=== PATIENT | female | born 1960 | race Caucasian/White ===

== ENCOUNTER 2016-03-26 10:31 | Emergency (ER) | payer MEDICARE, MEDICAID ==
[~2016-03-26 10:31] MED LIST: /CELE20CA PO; /DULO30CA OR; /DULO30CA PO; ACET65TA OR; CALC600T7 PO; COUM1TAB19 PO; DICL0.1S7 TOP; DULC5TAB PO; FURO20TA2 OR; KLOR10TA OR; LIDO1DIS2 TD; NEUR100C PO; OMEP20CA3 PO; OMEP20TA7 PO; OXYB5TAB5 OR; OXYC1SOL PO; SM I100T PO; TOPI25TA2 PO; TRAM50TA2 OR; TYLE325T5 PO; VICKOIN EX; ZANA2CAP OR; ZEST5TAB PO; ZIPR80CAP PO; [UNRECOGNIZED DRUG - OTHER] PO; compound cream EXT
--- NOTE | 2016-03-26 12:14 | EDDOCDS ---
Physician Documentation [facility] Name: Alaina Bucio Age: 55 yrs Sex: Female : 1960 Arrival Date: 03/26/2016 Time: 10:31 Bed TR8 Private MD: Janet Li Disposition: 03/26/16 12:00 Discharged to Home/Self Care. Impression: Encounter for observation for suspected toxic effect from ingested substance ruled out. - Condition is Stable. - Discharge Instructions: Overdose, Accidental. - Medication Reconciliation, Local Pharmacy Hours form. - Follow up: Janet Li; When: Call to arrange an appointment; Reason: Further diagnostic work-up, Recheck today's complaints, Continuance of care. - Problem is new. - Symptoms are unchanged. Historical: - Allergies: no known allergies; No known drug Allergies; - Home Meds: 1. Cymbalta 30 mg Oral cpDR 1 cap 2 times per day 2. oxybutynin chloride 10 mg Oral tr24 1 tab once daily 3. Lasix 40 mg Oral tab 1 tab once daily 4. omeprazole 20 mg Oral cpDR 1 cap 2 times per day 5. Calcium + Vitamin D 600 mg calcium- 200 unit Oral tab daily 6. Topamax 100 mg Oral tab 1 tab 2 times per day 7. Saline Nasal 0.65 % nasal spra nightly 8. Anusol 1-46.6-12.5 % Rectal oint as needed 9. Zofran (as hydrochloride) 4 mg Oral tab as needed 10. Milk of Magnesia 400 mg/5 mL Oral susp 30 mL once daily as needed 11. diclofenac sodium 1 % topical gel as needed 12. Senna-S 8.6-50 mg oral tab 2 tabs as needed 13. melatonin 3 mg Oral tab nightly - PMHx: Sleep Apnea w/o CPAP; - PSHx: knee replacement; Right Hip Replacement; - Social history: Smoking status: Patient states was never smoker of tobacco. No barriers to communication noted, The patient speaks fluent Micronesian, Speaks appropriately for age. - Family history: Not pertinent. - : The pt / caregiver states he / she is not on anticoagulants. Home medication list is obtained from the facility APR. - Exposure Risk Screening:: None identified. Vital Signs: 03/26 10:32 BP 145 / 69; Pulse 93; Resp 18; Temp 97.4; Pulse Ox 100% ; Weight 123.38 kg / 272.01 elp lbs; Height 5 ft. 0 in. (152.40 cm); 12:03 BP 140 / 67; Pulse 85; Resp 18; Temp 97.1; Pulse Ox 97% ; Pain 0/10; cmb 10:32 Body Mass Index 53.12 (123.38 kg, 152.40 cm) elp MDM: 11:52 Financial registration complete. lg Signatures: Carmina Mcpherson, Reg Reg lg Mariano Jacobs, RN RN mlb1 Patricio Molina PA PA rosauraw Radha Ayon, RN RN ttb MTDD
--- NOTE | 2016-03-26 12:14 | EDDOCDS ---
Nurse's Notes [facility] Name: Alaina Bucio Age: 55 yrs Sex: Female : 1960 Arrival Date: 03/26/2016 Time: 10:31 Bed TR8 Private MD: Janet Li Diagnosis: Encounter for observation for suspected toxic effect from ingested substance ruled out Presentation: 03/26 10:34 Presenting complaint: Pt given another clients medications at [facility] this am which include mlb1 Dilantin 200 mg, Carbamazepine 200 mg, Aspirin 81 mg, Paroxetine 10 mg, and Risperidone 3mg. Adult Sepsis Screening: The patient does not have new or worsening altered mentation. Patient's respiratory rate is less than 22. Systolic blood pressure is greater than 100. Patient has a qSOFA score of 0- Negative Sepsis Screen. Suicide/Homicide risk assessment- the patient denies having any suicidal and/or homicidal ideations and does not present with any other emotional, behavioral or mental health complaints. Status: Patient is not a director of community services or dependent. Transition of care: patient was received from [facility]. 10:34 Acuity: MARY JO Level 4 mlb1 10:34 Method Of Arrival: Wheelchair mlb1 Triage Assessment: 10:43 General: Appears in no apparent distress, Behavior is appropriate for age, cooperative. mlb1 Pain: Unable to use pain scale. Does not appear to understand pain scale. HIV screening NA for this visit Offered previously. Historical: - Allergies: no known allergies; No known drug Allergies; - Home Meds: 1. Cymbalta 30 mg Oral cpDR 1 cap 2 times per day 2. oxybutynin chloride 10 mg Oral tr24 1 tab once daily 3. Lasix 40 mg Oral tab 1 tab once daily 4. omeprazole 20 mg Oral cpDR 1 cap 2 times per day 5. Calcium + Vitamin D 600 mg calcium- 200 unit Oral tab daily 6. Topamax 100 mg Oral tab 1 tab 2 times per day 7. Saline Nasal 0.65 % nasal spra nightly 8. Anusol 1-46.6-12.5 % Rectal oint as needed 9. Zofran (as hydrochloride) 4 mg Oral tab as needed 10. Milk of Magnesia 400 mg/5 mL Oral susp 30 mL once daily as needed 11. diclofenac sodium 1 % topical gel as needed 12. Senna-S 8.6-50 mg oral tab 2 tabs as needed 13. melatonin 3 mg Oral tab nightly - PMHx: Sleep Apnea w/o CPAP; - PSHx: knee replacement; Right Hip Replacement; - Social history: Smoking status: Patient states was never smoker of tobacco. No barriers to communication noted, The patient speaks fluent Moroccan, Speaks appropriately for age. - Family history: Not pertinent. - : The pt / caregiver states he / she is not on anticoagulants. Home medication list is obtained from the facility MAR. - Exposure Risk Screening:: None identified. Screenin:10 Screening information is obtained from the patient. Fall risk: At risk due to gait ttb disturbance, The following interventions are performed due to a positive Fall Risk Screen: Fall Risk is added to Special Handling on the patient Summary Screen. A Fall Risk Bracelet was applied to the patient. Side Rails are placed in the up position. A Call Varela is given with instruction to call for help when getting out of bed. Assistance ADL's: Requires assistance with meal preparation, this assistance is provided by bathing, assistance is provided by dressing, assistance is provided by toileting, assistance is provided by ambulation, assistance is provided by housework, assistance is provided by medication administration, assistance is provided by family members, residence staff. Abuse/DV Screen: The patient / caregiver reports he/she is: not in a situation that causes fear, pain or injury. Nutritional screening: No deficits noted. Advance Directives: Currently, there is no health care proxy. home support is adequate. Assessment: 12:10 General: Appears in no apparent distress, well nourished, well groomed, Behavior is ttb cooperative, pleasant. Neurological: Level of Consciousness is awake, alert, Speech at baseline. Cardiovascular: Chest pain is denied. Respiratory: Airway is patent Respiratory effort is even, unlabored, Denies cough, shortness of breath. GI: Denies nausea, vomiting. Derm: Skin is normal. Vital Signs: 10:32 BP 145 / 69; Pulse 93; Resp 18; Temp 97.4; Pulse Ox 100% ; Weight 123.38 kg; Height 5 elp ft. 0 in. (152.40 cm); 12:03 BP 140 / 67; Pulse 85; Resp 18; Temp 97.1; Pulse Ox 97% ; Pain 0/10; cmb 10:32 Body Mass Index 53.12 (123.38 kg, 152.40 cm) elp Vitals: 10:32 Log In Time: March 26, 2016 at 10:30. RN notified that patient meets Red Flag elp criteria. ED Course: 10:32 Patient visited by Evon Marcelo PCA. elp 10:32 Janet Li is Private Physician. elp 10:32 Patient moved to Waiting elp 10:33 Patient moved to Pre RCE elp 10:34 Patient visited by Mariano Jacobs RN. mlb1 10:36 Triage Initiated mlb1 10:43 Patient visited by Mariano Jacobs RN. mlb1 11:16 Patient moved to Triage 2 mcp 11:45 [facility] Molina [facility] btw 11:45 Sara Gonzales MD is Attending Physician. btw 11:45 Patient visited by Patricio Molina PA. btw 11:57 Janet Li is Referral Physician. btw 12:10 The patient / caregiver is instructed regarding the plan of care and ED course. ttb Accompanied by Caregiver, Family Member, Patient has correct armband on for positive identification. 12:10 No IV's were initiated during this patient's visit. No procedures done that require ttb assistance. 12:11 Patient moved to TR8 cmb Order Results: There are currently no results for this order. Outcome: 12:00 Discharge ordered by Provider. btw 12:10 Discharge Assessment: Patient awake, alert and oriented x 3. No cognitive and/or ttb functional deficits noted. Patient verbalized understanding of disposition instructions. Patient awake and alert. patient administered narcotics - no. The following High Risk Discharge criteria are identified: None. Discharged to home via wheelchair, with family, caregiver. Condition: good Condition: stable. Discharge instructions given to parents licensed staff mft, Instructed on discharge instructions, follow up and referral plans. medication usage, Demonstrated understanding of instructions, medications, Pt was receptive of discharge instructions/ teaching. No special radiology studies were completed. Property :Personal belongings accompany Pt. 12:12 Patient left the ED. ttb Signatures: Josi Schmitt RN RN [facility] Mariano Jacobs RN RN [facility] Patricio Molina PA PA btw Danielle Blackwell cmb Gabo, Radha, RN RN ttb Patchen, Evon, NATURAL RESOURCE OFFICER NATURAL RESOURCE OFFICER elp MTDD
[2016-03-28] MEDS ORDERED: AMMO12CR4 EX (09:35)
[2016-03-28] MEDS ORDERED: CALC600T57 PO (09:35)
[2016-03-28] MEDS ORDERED: TOPA100T8 PO (09:35)
[2016-03-28] MEDS ORDERED: CYMB1CAP5 PO (09:35)
[2016-03-28] MEDS ORDERED: LASI40TA PO (09:35)
[2016-03-28] MEDS ORDERED: MELA0.02 PO (09:35)
[2016-03-28] MEDS ORDERED: SENN8.6T7 PO (09:35)
[2016-03-28] MEDS ORDERED: ZINC40OI EX (09:35)
[2016-03-28] MEDS ORDERED: [UNRECOGNIZED DRUG - OTHER] TOP (09:35)
[2016-03-28] MEDS ORDERED: PRIL20CA9 PO ×2 (09:35)
[2016-03-28] MEDS ORDERED: OXYB5TA PO (09:35)
[2016-03-28] MEDS ORDERED: CYMB60CA3 PO (09:35)
[2016-03-28] MEDS ORDERED: SALI0.653 (09:35)
[2016-03-28] MEDS ORDERED: REFR1DRO6 OP (09:35)
--- NOTE | 2016-03-28 13:13 | EDDOCDS ---
Nurse's Notes [facility] Name: Alaina Bucio Age: 55 yrs Sex: Female : 1960 Arrival Date: 03/26/2016 Time: 10:31 Bed TR8 Private MD: Janet Li Diagnosis: Encounter for observation for suspected toxic effect from ingested substance ruled out Presentation: 03/26 10:34 Presenting complaint: Pt given another clients medications at [facility] this am which include mlb1 Dilantin 200 mg, Carbamazepine 200 mg, Aspirin 81 mg, Paroxetine 10 mg, and Risperidone 3mg. Adult Sepsis Screening: The patient does not have new or worsening altered mentation. Patient's respiratory rate is less than 22. Systolic blood pressure is greater than 100. Patient has a qSOFA score of 0- Negative Sepsis Screen. Suicide/Homicide risk assessment- the patient denies having any suicidal and/or homicidal ideations and does not present with any other emotional, behavioral or mental health complaints. 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 Transition of care: patient was received from [facility]. 10:34 Acuity: MARY JO Level 4 mlb1 10:34 Method Of Arrival: Wheelchair mlb1 Triage Assessment: 10:43 General: Appears in no apparent distress, Behavior is appropriate for age, cooperative. mlb1 Pain: Unable to use pain scale. Does not appear to understand pain scale. HIV screening NA for this visit Offered previously. Historical: - Allergies: no known allergies; No known drug Allergies; - Home Meds: 1. Cymbalta 30 mg Oral cpDR 1 cap 2 times per day 2. oxybutynin chloride 10 mg Oral tr24 1 tab once daily 3. Lasix 40 mg Oral tab 1 tab once daily 4. omeprazole 20 mg Oral cpDR 1 cap 2 times per day 5. Calcium + Vitamin D 600 mg calcium- 200 unit Oral tab daily 6. Topamax 100 mg Oral tab 1 tab 2 times per day 7. Saline Nasal 0.65 % nasal spra nightly 8. Anusol 1-46.6-12.5 % Rectal oint as needed 9. Zofran (as hydrochloride) 4 mg Oral tab as needed 10. Milk of Magnesia 400 mg/5 mL Oral susp 30 mL once daily as needed 11. diclofenac sodium 1 % topical gel as needed 12. Senna-S 8.6-50 mg oral tab 2 tabs as needed 13. melatonin 3 mg Oral tab nightly - PMHx: Sleep Apnea w/o CPAP; - PSHx: knee replacement; Right Hip Replacement; - Social history: Smoking status: Patient states was never smoker of tobacco. No barriers to communication noted, The patient speaks fluent Singaporean, Speaks appropriately for age. - Family history: Not pertinent. - : The pt / caregiver states he / she is not on anticoagulants. Home medication list is obtained from the facility MAR. - Exposure Risk Screening:: None identified. Screenin:10 Screening information is obtained from the patient. Fall risk: At risk due to gait ttb disturbance, The following interventions are performed due to a positive Fall Risk Screen: Fall Risk is added to Special Handling on the patient Summary Screen. A Fall Risk Bracelet was applied to the patient. Side Rails are placed in the up position. A Call Varela is given with instruction to call for help when getting out of bed. Assistance ADL's: Requires assistance with meal preparation, this assistance is provided by bathing, assistance is provided by dressing, assistance is provided by toileting, assistance is provided by ambulation, assistance is provided by housework, assistance is provided by medication administration, assistance is provided by family members, residence staff. Abuse/DV Screen: The patient / caregiver reports he/she is: not in a situation that causes fear, pain or injury. Nutritional screening: No deficits noted. Advance Directives: Currently, there is no health care proxy. home support is adequate. Assessment: 12:10 General: Appears in no apparent distress, well nourished, well groomed, Behavior is ttb cooperative, pleasant. Neurological: Level of Consciousness is awake, alert, Speech at baseline. Cardiovascular: Chest pain is denied. Respiratory: Airway is patent Respiratory effort is even, unlabored, Denies cough, shortness of breath. GI: Denies nausea, vomiting. Derm: Skin is normal. Vital Signs: 10:32 BP 145 / 69; Pulse 93; Resp 18; Temp 97.4; Pulse Ox 100% ; Weight 123.38 kg; Height 5 elp ft. 0 in. (152.40 cm); 12:03 BP 140 / 67; Pulse 85; Resp 18; Temp 97.1; Pulse Ox 97% ; Pain 0/10; cmb 10:32 Body Mass Index 53.12 (123.38 kg, 152.40 cm) elp Vitals: 10:32 Log In Time: March 26, 2016 at 10:30. RN notified that patient meets Red Flag elp criteria. ED Course: 10:32 Patient visited by Evon Marcelo PCA. elp 10:32 Janet Li is Private Physician. elp 10:32 Patient moved to Waiting elp 10:33 Patient moved to Pre RCE elp 10:34 Patient visited by Mariano Jacobs RN. mlb1 10:36 Triage Initiated mlb1 10:43 Patient visited by Mariano Jacobs RN. mlb1 11:16 Patient moved to Triage 2 mcp 11:45 Patricio Molina PA [facility]. btw 11:45 Sara Gonzales MD is Attending Physician. btw 11:45 Patient visited by Patricio Molina PA. btw 11:57 Janet Li is Referral Physician. btw 12:10 The patient / caregiver is instructed regarding the plan of care and ED course. ttb Accompanied by Caregiver, Family Member, Patient has correct armband on for positive identification. 12:10 No IV's were initiated during this patient's visit. No procedures done that require ttb assistance. 12:11 Patient moved to TR8 cmb 12:24 [facility] Payment Agreement was scanned into AMEE and attached to record. lg 14:05 T-Sheet-- Draft Copy was scanned into AMEE and attached to record. gb Order Results: There are currently no results for this order. Outcome: 12:00 Discharge ordered by Provider. btw 12:10 Discharge Assessment: Patient awake, alert and oriented x 3. No cognitive and/or ttb functional deficits noted. Patient verbalized understanding of disposition instructions. Patient awake and alert. patient administered narcotics - no. The following High Risk Discharge criteria are identified: None. Discharged to home via wheelchair, with family, caregiver. Condition: good Condition: stable. 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 medication usage, Demonstrated understanding of instructions, medications, Pt was receptive of discharge instructions/ teaching. No special radiology studies were completed. Property :Personal belongings accompany Pt. 12:12 Patient left the ED. ttb Signatures: Josi Schmitt, RN RN Keila Arteaga, Reg Reg gb Carmina Mcpherson, Reg Reg lg Mariano Jacobs RN RN mlb1 Patricio Molina PA PA btw Danielle Blackwell cmRadha Liao, SEBASTIAN RN ttb Evon Marcelo, ABRAN CROSSTIE INSPECTOR elp Chart Complete MTDD
--- NOTE | 2016-03-28 13:13 | EDDOCDS ---
Physician Documentation [facility] Name: Alaina Bucio Age: 55 yrs Sex: Female : 1960 Arrival Date: 03/26/2016 Time: 10:31 Bed TR8 Private MD: Janet Li Disposition: 03/26/16 12:00 Discharged to Home/Self Care. Impression: Encounter for observation for suspected toxic effect from ingested substance ruled out. - Condition is Stable. - Discharge Instructions: Overdose, Accidental. - Medication Reconciliation, Local Pharmacy Hours form. - Follow up: Janet Li; When: Call to arrange an appointment; Reason: Further diagnostic work-up, Recheck today's complaints, Continuance of care. - Problem is new. - Symptoms are unchanged. Historical: - Allergies: no known allergies; No known drug Allergies; - Home Meds: 1. Cymbalta 30 mg Oral cpDR 1 cap 2 times per day 2. oxybutynin chloride 10 mg Oral tr24 1 tab once daily 3. Lasix 40 mg Oral tab 1 tab once daily 4. omeprazole 20 mg Oral cpDR 1 cap 2 times per day 5. Calcium + Vitamin D 600 mg calcium- 200 unit Oral tab daily 6. Topamax 100 mg Oral tab 1 tab 2 times per day 7. Saline Nasal 0.65 % nasal spra nightly 8. Anusol 1-46.6-12.5 % Rectal oint as needed 9. Zofran (as hydrochloride) 4 mg Oral tab as needed 10. Milk of Magnesia 400 mg/5 mL Oral susp 30 mL once daily as needed 11. diclofenac sodium 1 % topical gel as needed 12. Senna-S 8.6-50 mg oral tab 2 tabs as needed 13. melatonin 3 mg Oral tab nightly - PMHx: Sleep Apnea w/o CPAP; - PSHx: knee replacement; Right Hip Replacement; - Social history: Smoking status: Patient states was never smoker of tobacco. No barriers to communication noted, The patient speaks fluent Gibraltarian, Speaks appropriately for age. - Family history: Not pertinent. - : The pt / caregiver states he / she is not on anticoagulants. Home medication list is obtained from the facility APR. - Exposure Risk Screening:: None identified. Vital Signs: 03/26 10:32 BP 145 / 69; Pulse 93; Resp 18; Temp 97.4; Pulse Ox 100% ; Weight 123.38 kg / 272.01 elp lbs; Height 5 ft. 0 in. (152.40 cm); 12:03 BP 140 / 67; Pulse 85; Resp 18; Temp 97.1; Pulse Ox 97% ; Pain 0/10; cmb 10:32 Body Mass Index 53.12 (123.38 kg, 152.40 cm) elp MDM: 11:52 Financial registration complete. lg 12:24 [facility] Payment Agreement was scanned into Vdancer and attached to record. lg 14:05 T-Sheet-- Draft Copy was scanned into Vdancer and attached to record. gb Signatures: Keila Izquierdo, Reg Reg Carmina De Luna, Reg Reg Mariano Juarez, RN RN mlb1 Patricio Molina PA PA btw Conner, Teresa, RN RN ttb The chart was reviewed and I authenticate all verbal orders and agree with the evaluation and treatment provided.Attachments: 12:24 [facility] Payment Agreement lg 14:05 T-Sheet-- Draft Copy gb Chart Complete MTDD
--- NOTE | 2016-03-28 13:13 | EDDOCDS ---
Physician Documentation [facility] Name: Alaina Bucio Age: 55 yrs Sex: Female : 1960 Arrival Date: 03/26/2016 Time: 10:31 Bed TR8 Private MD: Janet Li Disposition: 03/26/16 12:00 Discharged to Home/Self Care. Impression: Encounter for observation for suspected toxic effect from ingested substance ruled out. - Condition is Stable. - Discharge Instructions: Overdose, Accidental. - Medication Reconciliation, Local Pharmacy Hours form. - Follow up: Janet Li; When: Call to arrange an appointment; Reason: Further diagnostic work-up, Recheck today's complaints, Continuance of care. - Problem is new. - Symptoms are unchanged. Historical: - Allergies: no known allergies; No known drug Allergies; - Home Meds: 1. Cymbalta 30 mg Oral cpDR 1 cap 2 times per day 2. oxybutynin chloride 10 mg Oral tr24 1 tab once daily 3. Lasix 40 mg Oral tab 1 tab once daily 4. omeprazole 20 mg Oral cpDR 1 cap 2 times per day 5. Calcium + Vitamin D 600 mg calcium- 200 unit Oral tab daily 6. Topamax 100 mg Oral tab 1 tab 2 times per day 7. Saline Nasal 0.65 % nasal spra nightly 8. Anusol 1-46.6-12.5 % Rectal oint as needed 9. Zofran (as hydrochloride) 4 mg Oral tab as needed 10. Milk of Magnesia 400 mg/5 mL Oral susp 30 mL once daily as needed 11. diclofenac sodium 1 % topical gel as needed 12. Senna-S 8.6-50 mg oral tab 2 tabs as needed 13. melatonin 3 mg Oral tab nightly - PMHx: Sleep Apnea w/o CPAP; - PSHx: knee replacement; Right Hip Replacement; - Social history: Smoking status: Patient states was never smoker of tobacco. No barriers to communication noted, The patient speaks fluent Stateless, Speaks appropriately for age. - Family history: Not pertinent. - : The pt / caregiver states he / she is not on anticoagulants. Home medication list is obtained from the facility APR. - Exposure Risk Screening:: None identified. Vital Signs: 03/26 10:32 BP 145 / 69; Pulse 93; Resp 18; Temp 97.4; Pulse Ox 100% ; Weight 123.38 kg / 272.01 elp lbs; Height 5 ft. 0 in. (152.40 cm); 12:03 BP 140 / 67; Pulse 85; Resp 18; Temp 97.1; Pulse Ox 97% ; Pain 0/10; cmb 10:32 Body Mass Index 53.12 (123.38 kg, 152.40 cm) elp MDM: 11:52 Financial registration complete. lg 12:24 [facility] Payment Agreement was scanned into [employer] and attached to record. lg 14:05 T-Sheet-- Draft Copy was scanned into [employer] and attached to record. gb Signatures: Keila Izquierdo, Reg Reg Carmina De Luna, Reg Reg Mariano Juarez, RN RN mlb1 Patricio Molina PA PA btw Conner, Teresa, RN RN ttb The chart was reviewed and I authenticate all verbal orders and agree with the evaluation and treatment provided.Attachments: 12:24 [facility] Payment Agreement lg 14:05 T-Sheet-- Draft Copy gb Chart Complete MTDD
== END 2016-03-26 12:12 | disposition home or self-care (01) ==
LOC: M ED 10:31
DX: Z04.8 Encounter for examination and observation for other specified reasons (principal); G47.30 Sleep apnea, unspecified; Z79.899 Other long term (current) drug therapy

== ENCOUNTER → 2016-04-01 | Outpatient (REF) | payer MEDICARE, MEDICAID ==
[~2016-04-01] MED LIST changes: +AMMO12CR4 EX; +CALC600T57 PO; +CYMB1CAP5 PO; +CYMB60CA3 PO; +LASI40TA PO; +MELA0.02 PO; +OXYB5TA PO; +PRIL20CA9 PO; +REFR1DRO6 OP; +SALI0.653; +SENN8.6T7 PO; +TOPA100T8 PO; +ZINC40OI EX; +[UNRECOGNIZED DRUG - OTHER] TOP
[2016-04-02 13:06] LABS: TOTAL PROTEIN 8.6 GM/DL (6.4-8.2)
[2016-04-02 13:16] LABS: REASON FOR REVIEW COMPREHENSIVE REVIEW
[2016-04-03 13:41] LABS: ALBUMIN 3.98 GM/DL (3.29-5.55); ALBUMIN % 46.3 % (55.8-66.1); GAMMA GLOBULIN % 19.7 % (11.1-18.8)
== END ==
LOC: M LAB REF 12:59
PROVIDERS: ATTEND Nurse Practitioner Adult Health
DX: D72.829 Elevated white blood cell count, unspecified (principal); R79.89 Other specified abnormal findings of blood chemistry

== ENCOUNTER → 2016-04-11 | Day surgery (SDC) | payer MEDICARE, MEDICAID ==
[~2016-04-11] VITALS: Ht 152.4 cm; Wt 123.4 kg
[~2016-04-11] MED LIST changes: +KETOROLAC 60 MG/2 ML VIAL (J1885) As Ordered ONE; +LIDOCAINE 1% MDV 20ML VIAL XX ONE; +LIDOCAINE 1% SDV INJ 30 ML VIAL As Ordered ONE; +LIDOCAINE 2% INJ 100 MG/5 ML SDV (FOR ANES.) As Ordered ONE; +LR 1,000 ML IV SCH; +METOCLOPRAMIDE INJ 10MG/2ML VIAL (J2765) IV PRN; +MIDAZOLAM INJ 2 MG/2 ML VIAL (J2250) As Ordered ONE; +ONDANSETRON 4MG/2ML VIAL (J2405) As Ordered ONE; +ONDANSETRON 4MG/2ML VIAL (J2405) IV PRN; +PERCOCET 5MG/325MG TAB PO PRN; +PROPOFOL 200 MG/20 ML VIAL As Ordered ONE; +fentaNYL 100 MCG/2 ML INJECTION (J3010) As Ordered ONE; +fentaNYL 100 MCG/2 ML INJECTION (J3010) IV PRN
[2016-04-11 12:20] VITALS: BP 149/81
--- NOTE | 2016-04-11 16:53 | RO ---
DATE OF PROCEDURE: 04/11/2016 PREPROCEDURE DIAGNOSIS: Postmenopausal bleeding. POSTPROCEDURE DIAGNOSIS: Postmenopausal bleeding. PROCEDURE: Hysteroscopy, dilation and curettage (D and C), polypectomy. SURGEON: John Velasquez MD MEMBERSHIP ADVISOR: ANESTHESIA: Local with sedation. ESTIMATED BLOOD LOSS: Minimal. FINDINGS: Two moderate sized endometrial polyps attached to the posterior wall of the fundus. Otherwise normal appearing endometrial cavity. DESCRIPTION OF PROCEDURE: The patient was taken to the operating room where IV sedation was given. She was prepped and draped in a sterile fashion in the dorsal lithotomy position. A speculum was placed in the vagina. Cervix was injected circumferentially with 18 mL of 1% lidocaine and the anterior lip of the cervix grasped with tenaculum. Cervix was dilated with tapered dilators. A diagnostic hysteroscope using normal saline is placed through the internal os. Visualization of the endometrial cavity revealed the findings noted above. Polyp forceps were used to grasp and remove two polyps without difficulty. Sharp curettage was performed. The uterine cavity was deemed to be empty and normal. All instruments were removed. Sponge and instrument counts were correct. Edited 04/16/16 1701 ginny
== END | disposition home or self-care (01) ==
LOC: M SDC 08:03
PROVIDERS: ATTEND Specialist
DX: N95.0 Postmenopausal bleeding (principal); F72 Severe intellectual disabilities; F81.9 Developmental disorder of scholastic skills, unspecified; E66.01 Morbid (severe) obesity due to excess calories; Z68.43 Body mass index [BMI] 50.0-59.9, adult; R07.9 Chest pain, unspecified; I10 Essential (primary) hypertension; K21.9 Gastro-esophageal reflux disease without esophagitis; R29.898 Other symptoms and signs involving the musculoskeletal system; G89.29 Other chronic pain; R06.83 Snoring; G40.909 Epilepsy, unspecified, not intractable, without status epilepticus; D72.829 Elevated white blood cell count, unspecified; R32 Unspecified urinary incontinence; K64.9 Unspecified hemorrhoids; M15.0 Primary generalized (osteo)arthritis; H50.10 Unspecified exotropia; G47.33 Obstructive sleep apnea (adult) (pediatric); Z79.899 Other long term (current) drug therapy; Z96.643 Presence of artificial hip joint, bilateral; Z96.653 Presence of artificial knee joint, bilateral
CPT/HCPCS: 58558; 88305; J1885; J2250; J2405; J3010

== ENCOUNTER → 2016-06-11 | Outpatient (CLI) | payer MEDICARE, MEDICAID ==
[~2016-06-11] MED LIST changes: -KETOROLAC 60 MG/2 ML VIAL (J1885) As Ordered ONE; -LIDOCAINE 1% MDV 20ML VIAL XX ONE; -LIDOCAINE 1% SDV INJ 30 ML VIAL As Ordered ONE; -LIDOCAINE 2% INJ 100 MG/5 ML SDV (FOR ANES.) As Ordered ONE; -LR 1,000 ML IV SCH; -METOCLOPRAMIDE INJ 10MG/2ML VIAL (J2765) IV PRN; -MIDAZOLAM INJ 2 MG/2 ML VIAL (J2250) As Ordered ONE; -ONDANSETRON 4MG/2ML VIAL (J2405) As Ordered ONE; -ONDANSETRON 4MG/2ML VIAL (J2405) IV PRN; -PERCOCET 5MG/325MG TAB PO PRN; -PROPOFOL 200 MG/20 ML VIAL As Ordered ONE; -fentaNYL 100 MCG/2 ML INJECTION (J3010) As Ordered ONE; -fentaNYL 100 MCG/2 ML INJECTION (J3010) IV PRN
--- NOTE | 2016-06-21 00:44 | ECWPNPC ---
PATIENT NAME: ANASTASIA LOZANO : 1960 GENDER: FEMALE VISIT DATE: 06/11/2016 DISCHARGE DATE: 06/11/16 1048 VISIT LOCKED DATE TIME: PHYSICIAN: ALEXIA ARCOS RESOURCE: ALEXIA ARCOS REASON FOR APPOINTMENT 1. CHRONIC PAIN HISTORY OF PRESENT ILLNESS HISTORY OF PRESENT ILLNESS: PAIN THE PATIENT DESCRIBES THE PAIN... FALL RISK SCREENING: SCREENING :NO FALLS IN THE PAST YEAR TODAY'S VISIT: NOTES: COMPLAINS "BUTT IS SORE". IS ACCOMPANIED BY MOM AND [facility] [place]. THEY REPORT PAIN AREA IS LOW BACK. ANKLES AND LOWER LEGS ARE DRY. NO RECENT FALLS. WALKING INDEPENDANTLY MOST OF THE TIME. . CURRENT MEDICATIONS TAKING LASIX 40 TABLET 1 TABLET P.O. ONCE A DAY TAKING CYMBALTA 60 MG CAPSULE DELAYED RELEASE PARTICLES 1 CAPSULE P.O. ONCE A DAY TAKING TOPAMAX 100 100MG TABLET 1 TAB P.O. TWICE A DAY TAKING CALCIUM 500+D 500-400 MG-UNIT TABLET 1 TABLET WITH MEALS ORALLY 600MG/VIT D 400 MG TWICE DAILY TAKING OXYBUTYNIN CHLORIDE 10 MG TABLET EXTENDED RELEASE 24 HOUR 1 TAB(S) ORALLY DAILY IN A.M. TAKING ANUSOL-HC 25 MG SUPPOSITORY 1 SUPPOSITORY RECTAL TWICE DAILY NEEDED TAKING MILK OF MAGNESIA SUSPENSION 30 ML ORALLY NEEDED TAKING PENNSAID 2 % SOLUTION 2 APPLICATIONS TO AFFECTED AREA TRANSDERMAL TWICE A DAY 8-10 DROPPS TO PAINFUL AREA OF ANKLES PRN TAKING CYMBALTA 30 MG CAPSULE DELAYED RELEASE PARTICLES 1 CAPSULE ORALLY QHS TAKING PRILOSEC 20 MG CAPSULE DELAYED RELEASE 1 CAP ORALLY TWICE DAILY HOLD MON AND FRI AM TAKING TYLENOL 500 TABLET 2 TABLET NEEDED ORALLY EVERY 6 HRS TAKING REFRESH 1.4-0.6 % SOLUTION OPHTHALMIC QHS PRN TAKING SARAH BROWN ARTHRITIS FORMULA 8-30 % CREAM DIRECTED EXTERNALLY Q 6 HOURS PRN PAIN APPLY TO BACK TAKING SALINE NASAL SPRAY 0.65 % SOLUTION 2 DROPS IN EACH NOSTRIL NEEDED NASALLY ONCE DAILY QHS NOT-TAKING ZOFRAN 4 MG TABLET 1 TABLET ORALLY THREE TIMES DAILY NEEDED NOT-TAKING PENNSAID 1.5 % SOLUTION 1 DROP(S) TO ANKLE TWICE DAILY NEEDED NOT-TAKING PRILOSEC 40MG 20 CAPSULE 1 CAP(S) P.O. BID NOT-TAKING POTASSIMIN 10 MEQ TABLET 1 TAB(S) P.O. ONCE A DAY NOT-TAKING GABAPENTIN 300 300 MG TABLET 1 TAB(S) P.O. ONCE A DAY NOT-TAKING LIDOCAINE 5 % PATCH 1 PATCH TO INTACT SKIN REMOVE AFTER 12 HOURS EXTERNALLY NEEDED NOT-TAKING ZANAFLEX 2 MG CAPSULE 2 CAP(S) P.O. TWICE A DAY NOT-TAKING CALMOSEPTINE 0.44-20.625 % OINTMENT 1 APPLICATION EXTERNALLY TO VULVA DIRECTED ON PACKAGE MEDICATION LIST REVIEWED AND RECONCILED WITH THE PATIENT PAST MEDICAL HISTORY MENTAL RETARDATION ALLERGIES ARTHRITIS MORBID OBESITY URGENCY AND OVERFLOW INCONTINENCE TOTAL CARE FOR HER MOTHER/HOPING FOR NH PLACEMENT SOON SOCIAL HISTORY GENERAL: PAIN CLINIC PFS, CLERGY, PUBLIC HEALTH REFERRALS CLERGY REFERRAL NEEDED?NO WAS THE PROVIDER NOTIFIED OF ANY PERTINENT INFO?NO PFS REFERRAL NEEDED?NO PUBLIC HEALTH REFERRAL NEEDED?NO PATIENT: ____. REVIEW OF SYSTEMS CONSTITUTIONAL: ANY CHANGE IN YOUR MEDICAL CONDITION? NO . CHILLS NO . FEVER NO . INFECTION: DO YOU HAVE NEW INFECTIONS? NO . DO YOU HAVE HISTORY OF MRSA? NO . MUSCULOSKELETAL: ANY NEW PATTERNS OF PAIN OR NUMBNESS? NO . GASTROENTEROLOGY: ANY NEW CHANGE IN BOWEL CONTROL? NO . GENITOURINARY: ANY NEW CHANGE IN BLADDER CONTROL? NO . IS THERE A CHANCE YOU COULD BE ? NO . HEMATOLOGY/LYMPH: DO YOU TAKE ANY BLOOD THINNERS? (FOR EXAMPLE- COUMADIN, PLAVIX, AGGRENOX, PLATEL, PRADAXA, OR XARELTO) NO . WHEN WAS YOUR LAST DOSE? DATE: TIME: . NEUROLOGY: HAVE YOU FALLEN IN THE PAST 6 MONTHS? NO . ANY NEW EXTREMITY NUMBNESS OR WEAKNESS? NO . CARDIOLOGY: DO YOU HAVE A PACEMAKER OR DEFIBRILLATOR? NO . RESPIRATORY: HAVE YOU BEEN SICK IN THE PAST WEEK? NO . FEVER NO . FLU LIKE SYMPTOMS? NO . COUGH NO . INTEGUMENTARY: DO YOU HAVE ANY RASHES OR OPEN SORES? NO . ALLERGIC/IMMUNO: ARE YOU ALLERGIC TO SHELLFISH OR IV DYE? NO . ANY NEW ALLERGIES? NO . PSYCHIATRIC: DO YOU HAVE THOUGHTS OF HURTING YOURSELF OR SOMEONE ELSE? NO . ARE YOU ABUSED, NEGLECTED, OR IN AN UNSAFE ENVIRONMENT? NO . ENDOCRINOLOGY: ARE YOU DIABETIC? NO . OTHER: DO YOU NEED ANY PRESCRIPTIONS? NO . IF YES, PLEASE LIST: ____ . ANY NEW PROBLEMS WITH YOUR MEDICATIONS? NO . WHEN DID YOU LAST EAT? ____ . WHEN DID YOU LAST DRINK? ____ . WHAT DID YOU LAST DRINK? ____ . NAME OF PERSON DRIVING YOU HOME? ____ . DO YOU HAVE ANY OTHER QUESTIONS OR CONCERNS NO . PSYCHOLOGY: PATIENT APPEARS RESIDES AT [facility] WITH FREQUENT VISITS HOME WITH MOM. ATTENDS DAY PROGRAMMING. NEEDS ASSISTANCE WITH REDIRECTION AND EXPRESSION . REVIEWED BY: PROVIDER: ALEXIA FREEMAN . VITAL SIGNS WT 271 LBS, HT 59 IN, BMI 54.73 INDEX, BP 176/91 MM HG, HR 56 /MIN, RR 18 /MIN, TEMP 98.0 F, OXYGEN SAT % 96, NA INITIALS AW 1016, REVIEWED BY: KG. EXAMINATION GENERAL EXAMINATION: PSYCHALERT , AFFECT FLAT. LUNGS:CLEAR TO AUSCULTATION BILATERALLY. HEART:HEART RATE REGULAR. MUSCULOSKELETAL:. ABLE TO SLOWLY RISE TO STANDING POSITION. POSTURE SLIGHTLY STOOPED. WALKS INDEPENDANTLY. MILD TENDERNESS WITH PALPATION OVER SACRUM. . ASSESSMENTS JOINT PAIN - M25.50 (PRIMARY) MYALGIA - M79.1 TREATMENT JOINT PAIN REFILL SARAH BROWN ARTHRITIS FORMULA CREAM, 8-30 %, DIRECTED, EXTERNALLY, Q 6 HOURS PRN PAIN APPLY TO AFFECTED AREAS, 30 DAY(S), 2 TUBE, REFILLS 3 STOP PENNSAID SOLUTION, 2 %, 2 APPLICATIONS TO AFFECTED AREA, TRANSDERMAL, TWICE A DAY 8-10 DROPPS TO PAINFUL AREA OF ANKLES PRN NOTES: PT IS ON DIET AND EXERCISE PLAN HER [facility] AND HER PRIMARY CARE PROVIDER. MOTHER IS HER POA AND HPC. PROCEDURE CODES FA211 ESTABILISHED PATIENT [facility] CHARGE G8745 BP SCR PRFRM RCMDD DEFIND SCR INTVL G8730 PAIN ASSESS POS TOOL F/U PLAN DOC 3016F PT SCRND [place] USE 1123F ACP DISCUSS/DSCN MKR DOCD 1036F TOBACCO NON-USER 0518F FALL PLAN OF CARE DOCD G8427 DOC MEDS VERIFIED W/PT OR RE G8417 BMI >=30 CALCUATE W/FOLLOWUP 3288F FALL RISK ASSESSMENT DOCD DISPOSITION & COMMUNICATION FOLLOW UP 6 MONTHS ELECTRONICALLY SIGNED BY MARLENY DE ANDA ON 06/20/2016 AT 11:10 AM EDT DISCLAIMER : THIS IS A VISIT SUMMARY EXTRACTED FROM THE [employer] CHART. IT IS NOT A COPY OF THE [employer] PROGRESS NOTE. MTDD
== END ==
LOC: M PAIN 10:00
PROVIDERS: ATTEND Nurse Practitioner Family
DX: G89.29 Other chronic pain (principal); M25.50 Pain in unspecified joint; M79.1 Myalgia; F72 Severe intellectual disabilities; E66.9 Obesity, unspecified; Z68.43 Body mass index [BMI] 50.0-59.9, adult; Z79.899 Other long term (current) drug therapy

== ENCOUNTER → 2016-08-06 | Outpatient (REF) | payer MEDICARE, MEDICAID ==
[2016-08-06 14:03] LABS: MEAN CORPUSCULAR HEMOGLOBIN 27.6 pg (27.0-33.0); MEAN CORPUSCULAR HGB CONC 31.1 g/dl (32.0-36.5); MEAN CORPUSCULAR VOLUME 88.7 fl (80.0-96.0); RED CELL DISTRIBUTION WIDTH 15.5 % (11.5-14.5); WHITE BLOOD COUNT 17.3 K/mm3 (4.0-10.0)
[2016-08-06 14:23] LABS: EOSINOPHILS 1 % (0-5)
[2016-08-06 14:24] LABS: HYPOCHROMASIA 1+
== END ==
LOC: M LAB REF 13:44
PROVIDERS: ATTEND Nurse Practitioner Adult Health
DX: D72.829 Elevated white blood cell count, unspecified (principal)

== ENCOUNTER → 2016-08-13 | Outpatient (REF) | payer MEDICARE, MEDICAID ==
[~2016-08-13] MED LIST changes: +LISI-542 PO
== END ==
LOC: M LAB REF 11:30
PROVIDERS: ATTEND Nurse Practitioner Adult Health
DX: N39.0 Urinary tract infection, site not specified (principal)

== ENCOUNTER → 2016-09-19 | Day surgery (SDC) | payer MEDICARE, MEDICAID ==
[~2016-09-19] VITALS: Ht 152.4 cm; Wt 129.3 kg
[~2016-09-19] MED LIST changes: +ACETAMINOPHEN TAB 650MG DOSE (2X325MG) As Ordered ONE; +ACETAMINOPHEN TAB 650MG DOSE (2X325MG) PO PRN; +LIDOCAINE 2% INJ 100 MG/5 ML SDV (FOR ANES.) As Ordered ONE; +LIDOCAINE 2% W/ EPINEPHRINE 1.7 ML DENTAL INJ As Ordered ONE; +LR 1,000 ML IV SCH; +MACR100C43 PO; -MELA0.02 PO; +MELA3TAB49 PO; +MIDAZOLAM INJ 2 MG/2 ML VIAL (J2250) As Ordered ONE; +ONDANSETRON 4MG/2ML VIAL (J2405) As Ordered ONE; +ONDANSETRON 4MG/2ML VIAL (J2405) IV PRN; -OXYB5TA PO; +OXYB5TAB10 PO; -OXYC1SOL PO; +OXYC1SOL3 PO; +PERCOCET 5MG/325MG TAB PO PRN; +PROPOFOL 200 MG/20 ML VIAL As Ordered ONE; +PYRI1TAB5 PO; +ROCURONIUM BROMIDE 50 MG/5 ML VIAL/SYRINGE As Ordered ONE; +SALI0.6523; -SALI0.653; +SUCCINYLCHOLINE 100 MG/5 ML SYRINGE (J0330) As Ordered ONE; +SUGAMMADEX SODIUM 500 MG/5 ML VIAL (BRIDION) As Ordered ONE; +TOPA100T12 PO; -TOPA100T8 PO; +dexameTHASONE 4 MG/ML 1ML VIAL (J1100) As Ordered ONE; +fentaNYL 100 MCG/2 ML INJECTION (J3010) As Ordered ONE
[2016-09-19 11:35] VITALS: BP 163/71
--- NOTE | 2016-09-20 11:09 | RO ---
DATE OF PROCEDURE: 09/19/2016 PREPROCEDURE DIAGNOSIS: Carious nonrestorable tooth #30. POSTPROCEDURE DIAGNOSIS: Carious nonrestorable tooth #30. PROCEDURE: Surgical removal of tooth #30. SURGEON: Demetri Goldberg DDS MANAGER LIFE INSURANCE: ANESTHESIA: General endotracheal. INDICATIONS: The patient is a 55-year-old female, a client of [facility] ([facility]) who presents on referral from the general dentist for removal of broken down nonrestorable tooth #30. Patient with a significant medical history including mental retardation, arthritis, seizure disorder and multiple joint replacements, on multiple medications. Due to the procedure, it needed to be performed in the operating room under general anesthesia. DESCRIPTION OF PROCEDURE: The patient was brought to the operating room (OR) per anesthesia and placed supine upon the OR table wherein general endotracheal anesthetic was undertaken without difficulty. After the usual sterile prep and drape for an intraoral procedure was performed, a throat pack was placed. 2% Xylocaine with 1:100,000 epinephrine was injected by way of infiltration fashion , approximately 1.5 mL, along the surgical site. A #15 scalpel blade used to make a full thickness mucoperiosteal incision carried from tooth 31 forward to the edentulous area of tooth 29. A buccal flap was then raised with periosteal elevator. Clark drill and copious sterile saline irrigation used to make an buccal bone trench to allow access and to get the tooth exposed. The lower tooth was then removed with elevator and forceps technique without difficulty. The socket area was curetted. Buccal bone support was then smoothed with the rongeur as well as the bone file. The socket was copiously irrigated, lightly curetted, and then closed with Gelfoam and #3-0 gut interrupted suture for hemostasis. At the termination of the procedure, the oropharynx was inspected and found to be free of debris. The throat pack was removed and the patient was awakened per anesthesia. The estimated blood loss for the procedure was minimal. Fluids of 700 mL in crystalloid solution. Needle and sponge count was correct. The tooth was sent for identification to pathology. DISPOSITION: The patient was extubated in the operating room and taken to the recovery room breathing spontaneously in stable condition. ADENIKE
== END | disposition home or self-care (01) ==
LOC: M SDC 05:56
PROVIDERS: ATTEND Dentist Oral and Maxillofacial Surgery
DX: K02.9 Dental caries, unspecified (principal); G40.909 Epilepsy, unspecified, not intractable, without status epilepticus; I10 Essential (primary) hypertension; K21.9 Gastro-esophageal reflux disease without esophagitis; R29.898 Other symptoms and signs involving the musculoskeletal system; M12.9 Arthropathy, unspecified; F72 Severe intellectual disabilities; F81.9 Developmental disorder of scholastic skills, unspecified; G47.33 Obstructive sleep apnea (adult) (pediatric); D72.829 Elevated white blood cell count, unspecified; E66.01 Morbid (severe) obesity due to excess calories; Z68.43 Body mass index [BMI] 50.0-59.9, adult; H50.10 Unspecified exotropia; R32 Unspecified urinary incontinence; Z79.899 Other long term (current) drug therapy; Z78.0 Asymptomatic menopausal state; Z96.653 Presence of artificial knee joint, bilateral; Z96.642 Presence of left artificial hip joint
CPT/HCPCS: 41899; 88300; J0330; J1100; J2250; J2405; J3010

== ENCOUNTER 2016-10-18 13:53 | Emergency (ER) | payer MEDICARE, MEDICAID ==
[~2016-10-18] VITALS: Ht 152.4 cm; Wt 125.0 kg
[~2016-10-18 13:53] MED LIST changes: -ACETAMINOPHEN TAB 650MG DOSE (2X325MG) As Ordered ONE; -ACETAMINOPHEN TAB 650MG DOSE (2X325MG) PO PRN; -LIDOCAINE 2% INJ 100 MG/5 ML SDV (FOR ANES.) As Ordered ONE; -LIDOCAINE 2% W/ EPINEPHRINE 1.7 ML DENTAL INJ As Ordered ONE; -LR 1,000 ML IV SCH; -MACR100C43 PO; -MIDAZOLAM INJ 2 MG/2 ML VIAL (J2250) As Ordered ONE; -ONDANSETRON 4MG/2ML VIAL (J2405) As Ordered ONE; -ONDANSETRON 4MG/2ML VIAL (J2405) IV PRN; -PERCOCET 5MG/325MG TAB PO PRN; -PROPOFOL 200 MG/20 ML VIAL As Ordered ONE; -PYRI1TAB5 PO; -ROCURONIUM BROMIDE 50 MG/5 ML VIAL/SYRINGE As Ordered ONE; -SUCCINYLCHOLINE 100 MG/5 ML SYRINGE (J0330) As Ordered ONE; -SUGAMMADEX SODIUM 500 MG/5 ML VIAL (BRIDION) As Ordered ONE; -dexameTHASONE 4 MG/ML 1ML VIAL (J1100) As Ordered ONE; -fentaNYL 100 MCG/2 ML INJECTION (J3010) As Ordered ONE
[2016-10-18 16:53] LABS: BASO % 0.2 % (0.0-1.0); EOS # 0.2 K/mm3 (0.0-0.50); LARGE UNSTAINED CELL # 0.2 K/mm3 (0.0-0.4); LARGE UNSTAINED CELL % 0.9 % (0.0-4.0); LYMPH # 1.5 K/mm3 (1.5-4.5); LYMPH % 9.3 % (24.0-44.0); MEAN CORPUSCULAR HGB CONC 31.9 g/dl (32.0-36.5); MEAN CORPUSCULAR VOLUME 87.9 fl (80.0-96.0); MONO # 0.6 K/mm3 (0.0-0.8); MONO % 3.8 % (0.0-5.0); NEUTROPHILS % 84.7 % (36.0-66.0); PLATELET COUNT, AUTOMATED 382 k/mm3 (150-450); RED CELL DISTRIBUTION WIDTH 15.1 % (11.5-14.5); WHITE BLOOD COUNT 16.5 K/mm3 (4.0-10.0)
[2016-10-18 17:17] LABS: ALBUMIN 3.4 GM/DL (3.2-5.2); ALBUMIN/GLOBULIN RATIO 0.77 (1.00-1.93); BILIRUBIN,TOTAL 0.2 MG/DL (0.2-1.0); CALCIUM LEVEL 9.2 MG/DL (8.5-10.1); CREATININE FOR GFR 1.22 MG/DL (0.55-1.02); GLOMERULAR FILTRATION RATE 48.5 (>51); POTASSIUM SERUM 4.5 MEQ/L (3.5-5.1); TOTAL PROTEIN 7.8 GM/DL (6.4-8.2)
--- NOTE | 2016-10-18 18:10 | REPUSA ---
CLINICAL HISTORY: Abdominal pain. TECHNIQUE: Multiple axial, sagittal and coronal CT images were obtained through the abdomen and pelvi s without administration of oral or IV contrast material. COMMENTS: The liver is of uniform attenuation without mass or defect. There is no intra or extrahepatic biliary ductal dilatation. The spleen is normal. The gallbladder is surgically absent. The pancreas is of n ormal contour and attenuation characteristics. There is no evidence of adrenal mass. The kidneys are normal in size, shape and configuration. No renal or ureteral calculi are identified. There is no hydroureter or hydronephrosis. There is no evidence for appendicitis. There is no bowel wall thickening. No evidence for small or la rge bowel obstruction. There is no evidence of abdominal ascites or lymphadenopathy. There is no evidence of intrinsic or extrinsic bladder mass. There is no pelvic ascites or lymphadeno frannie. The uterus and ovaries are atrophic. Images of the lung bases show no evidence of pleural or parenchymal mass. There are no pleural effusi ons. The bony structures are free of lytic or blastic lesions. Multilevel degenerative changes are seen in volving the thoracolumbar spine. Status post bilateral total hip replacement. Scattered calcifications are seen involving the aorta and major branches compatible with atherosclero sis. IMPRESSION: No acute abdominal pelvic pathology. Thank you for your kind referral of this patient.
[2016-10-18] MEDS ORDERED: MACR100C43 PO (18:18)
[2016-10-18] MEDS ORDERED: PYRI1TAB5 PO (18:18)
[2016-10-18 18:21] VITALS: BP 140/68
[2016-10-18] MEDS ORDERED: NITROFURANTOIN (MACROBID) 100 MG CAP PO ONE (18:30)
--- NOTE | 2016-10-19 07:35 | REP ---
Portable chest x-ray: Semi-erect AP view: History: Question pneumonia. Comparison chest x-ray April 17, 2014. Findings: Penetration is inhibited by patient body habitus. The lungs are symmetrically aerated. No infiltrate is seen. Pleural angles are sharp. Heart appears somewhat prominent. Pulmonary vasculature is not increased. Impression: No infiltrate seen. Signed by Michael Lund MD 10/19/2016 08:48 A
== END 2016-10-18 18:48 | disposition home or self-care (01) ==
LOC: M ED 13:53
DX: N39.0 Urinary tract infection, site not specified (principal); I10 Essential (primary) hypertension; G40.909 Epilepsy, unspecified, not intractable, without status epilepticus; F33.9 Major depressive disorder, recurrent, unspecified; Z78.0 Asymptomatic menopausal state; Z87.440 Personal history of urinary (tract) infections; Z79.899 Other long term (current) drug therapy

== ENCOUNTER → 2016-11-07 | Outpatient (REF) | payer MEDICARE, MEDICAID ==
[~2016-11-07] MED LIST changes: +MACR100C43 PO; +PYRI1TAB5 PO
== END ==
LOC: M LAB REF 09:47
PROVIDERS: ATTEND Physician Assistant
DX: R30.0 Dysuria (principal)

== ENCOUNTER → 2016-12-10 | Outpatient (CLI) | payer MEDICARE, MEDICAID ==
--- NOTE | 2016-12-14 00:33 | ECWPNPC ---
PATIENT NAME: ANASTASIA LOZANO : 1960 GENDER: FEMALE VISIT DATE: 12/10/2016 DISCHARGE DATE: 12/10/16 1134 VISIT LOCKED DATE TIME: PHYSICIAN: ALEXIA ARCOS RESOURCE: ALEXIA ARCOS REASON FOR APPOINTMENT 1. 6 [facility] CHRONIC PAIN HISTORY OF PRESENT ILLNESS TODAY'S VISIT: NOTES: PAIN HAS BEEN RATED FOR ERIKA 7/10. PATIENT IS ACCOMPANIED BY HER MOTHER AND HER CARE PROVIDER FROM [facility]. THEY REPORT ERIKA HAS BEEN MORE ACTIVE AND IS COMPLAINING OF PAIN IN HER ANKLES. THEY HAVE NOTED NO SWELLING IN THE ANKLES AND NO REDDENED AREAS. SHE HAS HAD NO RECENT FALLS ALTHOUGH HER MOM HAS AND MOM IS WEARING AN ANKLE SUPPORT. ERIKA SAYS SHE ANTS ONE OF THESE. . CURRENT MEDICATIONS TAKING LASIX 40 TABLET 1 TABLET P.O. ONCE A DAY TAKING CYMBALTA 60 MG CAPSULE DELAYED RELEASE PARTICLES 1 CAPSULE P.O. ONCE A DAY TAKING TOPAMAX 100 100MG TABLET 1 TAB P.O. TWICE A DAY TAKING CALCIUM 500+D 500-400 MG-UNIT TABLET 1 TABLET WITH MEALS ORALLY 600MG/VIT D 400 MG TWICE DAILY TAKING OXYBUTYNIN CHLORIDE 10 MG TABLET EXTENDED RELEASE 24 HOUR 1 TAB(S) ORALLY DAILY IN A.M. TAKING ANUSOL-HC 25 MG SUPPOSITORY 1 SUPPOSITORY RECTAL TWICE DAILY NEEDED TAKING MILK OF MAGNESIA SUSPENSION 30 ML ORALLY NEEDED TAKING CYMBALTA 30 MG CAPSULE DELAYED RELEASE PARTICLES 1 CAPSULE ORALLY QHS TAKING PRILOSEC 20 MG CAPSULE DELAYED RELEASE 1 CAP ORALLY TWICE DAILY HOLD MON AND FRI AM TAKING TYLENOL 500 TABLET 2 TABLET NEEDED ORALLY EVERY 6 HRS TAKING REFRESH 1.4-0.6 % SOLUTION OPHTHALMIC QHS PRN TAKING SALINE NASAL SPRAY 0.65 % SOLUTION 2 DROPS IN EACH NOSTRIL NEEDED NASALLY ONCE DAILY QHS TAKING SARAH BROWN ARTHRITIS FORMULA 8-30 % CREAM DIRECTED EXTERNALLY Q 6 HOURS PRN PAIN APPLY TO AFFECTED AREAS UNKNOWN ZOFRAN 4 MG TABLET 1 TABLET ORALLY THREE TIMES DAILY NEEDED UNKNOWN PENNSAID 1.5 % SOLUTION 1 DROP(S) TO ANKLE TWICE DAILY NEEDED UNKNOWN PRILOSEC 40MG 20 CAPSULE 1 CAP(S) P.O. BID UNKNOWN POTASSIMIN 10 MEQ TABLET 1 TAB(S) P.O. ONCE A DAY UNKNOWN GABAPENTIN 300 300 MG TABLET 1 TAB(S) P.O. ONCE A DAY UNKNOWN LIDOCAINE 5 % PATCH 1 PATCH TO INTACT SKIN REMOVE AFTER 12 HOURS EXTERNALLY NEEDED UNKNOWN ZANAFLEX 2 MG CAPSULE 2 CAP(S) P.O. TWICE A DAY UNKNOWN CALMOSEPTINE 0.44-20.625 % OINTMENT 1 APPLICATION EXTERNALLY TO VULVA DIRECTED ON PACKAGE MEDICATION LIST REVIEWED AND RECONCILED WITH THE PATIENT PAST MEDICAL HISTORY MENTAL RETARDATION ALLERGIES ARTHRITIS MORBID OBESITY URGENCY AND OVERFLOW INCONTINENCE TOTAL CARE FOR HER MOTHER/HOPING FOR NH PLACEMENT SOON ALLERGIES N.K.D.A. SOCIAL HISTORY GENERAL: TOBACCO USE ARE YOU A:NONSMOKER PAIN CLINIC PFS, CLERGY, PUBLIC HEALTH REFERRALS PFS REFERRAL NEEDED?NO CLERGY REFERRAL NEEDED?NO PUBLIC HEALTH REFERRAL NEEDED?NO WAS THE PROVIDER NOTIFIED OF ANY PERTINENT INFO?NO HAS THE PATIENT BEEN EDUCATED REGARDING HIS/HER PLAN OF CARE?YES PLEASE DOCUMENT ANY ADDTIONAL DETAILS. FAMILY AND CAREGIVERS INVOLVED HAS THE PATIENT BEEN EDUCATED REGARDING PAIN, THE RISK FOR PAIN, THE IMPORTANCE OF EFFECTIVE PAIN MANAGEMENT, AND THE PAIN ASSESSMENT PROCESS?YES PLEASE DOCUMENT ANY ADDTIONAL DETAILS. FAMILY AND CAREGIVERS KEPT INVOLVED. PATIENT: ____. REVIEW OF SYSTEMS FOLLOW-UP ROS: CARDIOLOGY: NEGATIVE FOR, CHEST PAIN . INTEGUMENT NO UNUSUAL RASH OR CHANGING LESIONS . MUSCULOSKELETAL DENIES OTHER AREAS OF DISCOMFORT . PULMONOLOGY: NEGATIVE FOR, COUGH, SHORTNESS OF BREATH . VITAL SIGNS WT 260.2 LBS, HT 59 IN, BMI 52.55 INDEX, BP 185/111 MM HG, HR 83 /MIN, RR 18 /MIN, TEMP 97.8 F, OXYGEN SAT % 94%, NA INITIALS CM 1115. EXAMINATION GENERAL EXAMINATION: PSYCHALERT , TALKATIVE, COOPERATIVE, SMILING TODAY. LUNGS:CLEAR TO AUSCULTATION BILATERALLY. HEART:HEART RATE REGULAR. MUSCULOSKELETAL:. ABLE TO RISE TO STANDING POSITION WITH MINIMAL DIFFICULTY. POSTURE SLIGHTLY STOOPED. WALKS WITH USE OF WALKER FOR SUPPORT. REDNESS NOTED OVER BOTH SHINS BUT NO WARMTH, NO OPEN LESIONS. MINIMAL EDEMA. NO TENDERNESS WITH PAPATION OVER ANKLES. IS ABLE TO FLEX AND EXTEND ANKLES . ASSESSMENTS OTHER CHRONIC PAIN - G89.29 PAIN IN LEFT ANKLE AND JOINTS OF LEFT FOOT - M25.572 MYALGIA - M79.1 PAIN IN RIGHT ANKLE AND JOINTS OF RIGHT FOOT - M25.571 TREATMENT OTHERS START VOLTAREN GEL, 1 %, DIRECTED, TRANSDERMAL, APPLY 2 GRAMS TO EACH ANKLE Q 8 HRS PRN PAIN, 30 DAY(S), 1 TUBE, REFILLS 2 NOTES: MAY STILL USE VICKS OR BENGAY NEEDED TO THE ANKLES. PROCEDURE CODES FA211 ESTABILISHED PATIENT [facility] CHARGE G8730 PAIN ASSESS POS TOOL F/U PLAN DOC G8427 DOC MEDS VERIFIED W/PT OR RE DISPOSITION & COMMUNICATION FOLLOW UP 6 MONTHS (REASON: ANKLE PAIN) ELECTRONICALLY SIGNED BY MARLENY DE ANDA ON 12/10/2016 AT 11:48 AM EDT DISCLAIMER : THIS IS A VISIT SUMMARY EXTRACTED FROM THE [employer] CHART. IT IS NOT A COPY OF THE [employer] PROGRESS NOTE. ADENIKE
== END ==
LOC: M PAIN 11:00
PROVIDERS: ATTEND Nurse Practitioner Family
DX: G89.29 Other chronic pain (principal); M25.572 Pain in left ankle and joints of left foot; M25.571 Pain in right ankle and joints of right foot; M79.1 Myalgia; M19.90 Unspecified osteoarthritis, unspecified site; J30.9 Allergic rhinitis, unspecified; E66.01 Morbid (severe) obesity due to excess calories; Z68.43 Body mass index [BMI] 50.0-59.9, adult; Z79.899 Other long term (current) drug therapy

== ENCOUNTER → 2016-12-15 | Outpatient (CLI) | payer MEDICARE, MEDICAID ==
--- NOTE | 2016-12-15 12:56 | REPMRS ---
Patient History The patient states she had a clinical breast exam in 11/2016. Patient is postmenopausal and is nulliparous. Family history of breast cancer in maternal grandmother at age 50 or over. Reductions of both breasts, 1998. Digital Woman Screen Mammo: December 15, 2016 - Exam #: [id number] Bilateral CC and MLO view(s) were taken. Technologist: Mamta Silver, Technologist Prior study comparison: August 23, 2015, digital woman screen mammo performed at [facility]. January 21, 2013, digital woman screen mammo performed at [facility]. FINDINGS: There are scattered fibroglandular densities. There has been no change in the appearance of the mammogram from the prior studies. There is a mild amount of residual fibroglandular tissue which is fairly symmetric. There is no interval development of dominant mass, architectural distortion, or clustered microcalcification suggestive of malignancy. ASSESSMENT: BI-RADS/ACR category 1 mammogram. Negative. Recommendation Routine screening mammogram in 1 year (for women over age 40). This mammogram was interpreted with the aid of an FDA-approved computer-aided dectection system. Electronically Signed By: Nima Harley MD 12/15/16 0006
== END ==
LOC: M WHC 11:14
PROVIDERS: ATTEND Nurse Practitioner Family
DX: Z01.419 Encounter for gynecological examination (general) (routine) without abnormal findings (principal); Z12.31 Encounter for screening mammogram for malignant neoplasm of breast; Z78.0 Asymptomatic menopausal state; Z92.89 Personal history of other medical treatment; Z98.890 Other specified postprocedural states; Z12.12 Encounter for screening for malignant neoplasm of rectum; Z80.3 Family history of malignant neoplasm of breast
CPT/HCPCS: 82270; G0101; G0202

== ENCOUNTER 2016-12-17 03:24 | Emergency (ER) | payer MEDICARE, MEDICAID ==
[~2016-12-17] VITALS: Ht 152.4 cm; Wt 113.7 kg
[2016-12-17 04:54] LABS: BASO # 0.1 10^3/uL (0.0-0.2); BASO % 0.4 % (0.0-1.0); EOS # 0.1 10^3/uL (0.0-0.50); EOS % 0.8 % (0.0-3.0); IMMATURE GRANULOCYTE % 0.3 % (0-0); LYMPH # 2.4 10^3/uL (1.5-4.5); LYMPH % 16.9 % (24.0-44.0); MEAN CORPUSCULAR HEMOGLOBIN 27.9 pg (27.0-33.0); MEAN CORPUSCULAR HGB CONC 30.9 g/dl (32.0-36.5); MEAN CORPUSCULAR VOLUME 90.4 fl (80.0-96.0); MONO % 6.8 % (0.0-5.0); NEUTROPHILS # 10.6 10^3/uL (1.8-7.7); NEUTROPHILS % 74.8 % (36.0-66.0); PLATELET COUNT, AUTOMATED 374 10^3/uL (150-450); RED CELL DISTRIBUTION WIDTH 15.1 % (11.5-14.5); WHITE BLOOD COUNT 14.2 10^3/uL (4.0-10.0)
[2016-12-17 05:15] LABS: ALBUMIN 3.3 GM/DL (3.2-5.2); ALBUMIN/GLOBULIN RATIO 0.75 (1.00-1.93); ALKALINE PHOSPHATASE 111 U/L (45-117); ALT/SGPT 23 U/L (12-78); ANION GAP 6 MEQ/L (8-16); AST/SGOT 13 U/L (15-37); BILIRUBIN,DIRECT < 0.1 MG/DL (0.0-0.2); BILIRUBIN,TOTAL 0.3 MG/DL (0.2-1.0); BLOOD UREA NITROGEN 31 MG/DL (7-18); CALCIUM LEVEL 8.7 MG/DL (8.5-10.1); CARBON DIOXIDE LEVEL 26 MEQ/L (21-32); CHLORIDE LEVEL 106 MEQ/L (98-107); CREATININE FOR GFR 1.34 MG/DL (0.55-1.02); GLOMERULAR FILTRATION RATE 43.4 (>51); GLUCOSE, FASTING 94 MG/DL (70-105); POTASSIUM SERUM 3.9 MEQ/L (3.5-5.1); SODIUM LEVEL 138 MEQ/L (136-145); TOTAL PROTEIN 7.7 GM/DL (6.4-8.2)
[2016-12-17 07:46] VITALS: BP 118/68
--- NOTE | 2016-12-17 08:30 | ECGEPIP ---
Stationary ECG Study 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
--- NOTE | 2016-12-17 09:03 | REP ---
Chest two views HISTORY: Chest pain Comparison: 10/18/2016 The lungs are clear. Cardiomegaly. The pulmonary vasculature is normal in appearance. The bony structure is intact. IMPRESSION: Cardiomegaly. Signed by John Campo MD 12/17/2016 08:54 A
--- NOTE | 2016-12-17 13:30 | ECGEPIP ---
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
== END 2016-12-17 09:19 | disposition home or self-care (01) ==
LOC: M ED 03:24
DX: R07.89 Other chest pain (principal); R06.02 Shortness of breath

== ENCOUNTER → 2017-03-23 | Outpatient (REF) | payer MEDICARE, MEDICAID ==
[2017-03-23 17:57] LABS: APPEARANCE, URINE CLEAR (CLEAR); BACTERIA, URINE AUTO 1+ (NEGATIVE); BILIRUBIN, URINE AUTO NEGATIVE (NEGATIVE); BLOOD, URINE BLOOD NEGATIVE (NEGATIVE); COLOR, URINE YELLOW (YELLOW); GLUCOSE, URINE (UA) AUTO NEGATIVE (NEGATIVE); KETONE, URINE AUTO NEGATIVE (NEGATIVE); LEUKOCYTE ESTERASE, URINE AUTO NEGATIVE (NEGATIVE); MUCUS, URINE SMALL (NEGATIVE); NITRITE, URINE AUTO NEGATIVE (NEGATIVE); PROTEIN, URINE AUTO NEGATIVE (NEGATIVE); RBC, URINE AUTO 0 /HPF (0-3); SPECIFIC GRAVITY URINE AUTO 1.012 (1.002-1.035); SQUAMOUS EPITHELIAL CELL UR AU 0 /HPF (0-6); UROBILINOGEN, URINE AUTO 0.2 mg/dL (0.0-2.0); WBC, URINE AUTO 1 /HPF (0-3)
== END ==
LOC: M LAB REF 16:30
DX: N39.0 Urinary tract infection, site not specified (principal)
CPT/HCPCS: 81001

== ENCOUNTER 2017-03-24 17:43 | Emergency (ER) | payer MEDICARE, MEDICAID ==
[2017-03-24] MEDS: ACETAMINOPHEN TAB 650MG DOSE (2X325MG) PO (18:40)
== END 2017-03-24 19:59 | disposition home or self-care (01) ==
LOC: M ED 17:43
DX: S93.401A Sprain of unspecified ligament of right ankle, initial encounter (principal); S93.402A Sprain of unspecified ligament of left ankle, initial encounter; W10.9XXA Fall (on) (from) unspecified stairs and steps, initial encounter; Y92.018 Other place in single-family (private) house as the place of occurrence of the external cause; G47.30 Sleep apnea, unspecified; F71 Moderate intellectual disabilities; Z79.899 Other long term (current) drug therapy
CPT/HCPCS: 73610

== ENCOUNTER → 2017-06-17 | Outpatient (CLI) | payer MEDICARE, MEDICAID | LOC: M PAIN 11:15 | DX: M25.572 Pain in left ankle and joints of left foot (principal); M25.571 Pain in right ankle and joints of right foot; G89.29 Other chronic pain; M79.1 Myalgia; J30.9 Allergic rhinitis, unspecified; M19.90 Unspecified osteoarthritis, unspecified site; E66.01 Morbid (severe) obesity due to excess calories; Z68.42 Body mass index [BMI] 45.0-49.9, adult; Z79.899 Other long term (current) drug therapy; Z96.659 Presence of unspecified artificial knee joint | CPT/HCPCS: G0463 ==

== ENCOUNTER 2017-08-19 10:59 | Day surgery (SDC) | payer MEDICARE, MEDICAID ==
[~2017-08-19 10:59] MED LIST changes: -/CELE20CA PO; -/DULO30CA OR; -/DULO30CA PO; -ACET65TA OR; +ACETAMINOPHEN 325 MG TAB PO; -AMMO12CR4 EX; +BSS with VANC/TOB/EPI for EYE CASES IR; -CALC600T57 PO; -CALC600T7 PO; -COUM1TAB19 PO; -CYMB1CAP5 PO; -CYMB60CA3 PO; -DICL0.1S7 TOP; -DULC5TAB PO; -FURO20TA2 OR; -KLOR10TA OR; -LASI40TA PO; -LIDO1DIS2 TD; -LISI-542 PO; -MACR100C43 PO; -MELA3TAB49 PO; +MIDAZOLAM INJ 2 MG/2 ML VIAL (J2250) As Ordered; -NEUR100C PO; -OMEP20CA3 PO; -OMEP20TA7 PO; -OXYB5TAB10 PO; -OXYB5TAB5 OR; -OXYC1SOL3 PO; +PHENYLEPHRINE HCL 10 % OPHTH. SOL 5ML OD; -PRIL20CA9 PO; -PYRI1TAB5 PO; -REFR1DRO6 OP; -SALI0.6523; -SENN8.6T7 PO; -SM I100T PO; -TOPA100T12 PO; -TOPI25TA2 PO; -TRAM50TA2 OR; -TYLE325T5 PO; -VICKOIN EX; -ZANA2CAP OR; -ZEST5TAB PO; -ZINC40OI EX; -ZIPR80CAP PO; -[UNRECOGNIZED DRUG - OTHER] PO; -[UNRECOGNIZED DRUG - OTHER] TOP; -compound cream EXT; +fentaNYL 100 MCG/2 ML INJECTION (J3010) As Ordered
[2017-08-19] MEDS ORDERED: PHENYLEPHRINE 2.5% OPHTH SOL 2ML As Ordered (11:27)
[2017-08-19] MEDS ORDERED: CYCLOPENTOLATE 2% OPHTH SOLN 2ML BTL As Ordered (11:27)
[2017-08-19] MEDS ORDERED: OFLOXACIN 0.3 % (OCUFLOX) OPTH SOL 5ML As Ordered (11:27)
[2017-08-19] MEDS ORDERED: TROPICAMIDE 1% OPHTH SOLN 2ML As Ordered (11:27)
[2017-08-19] MEDS: LIDOCAINE 3.5 % 1ML OPHTH TOPICAL GEL OU (11:58)
[2017-08-19] MEDS: TROPICAMIDE 1% OPHTH SOLN 2ML OD (11:58)
[2017-08-19] MEDS: CYCLOPENTOLATE 2% OPHTH SOLN 2ML BTL OD (11:58)
[2017-08-19] MEDS: PHENYLEPHRINE 2.5% OPHTH SOL 2ML OD (11:58)
[2017-08-19] MEDS: OFLOXACIN 0.3 % (OCUFLOX) OPTH SOL 5ML OD (11:58)
[2017-08-19] MEDS: HEALON DUET (HEALON 10MG/ML 0.55ML & HEALON ENDOCOAT 30MG/ML 0.85ML) As Ordered (13:31)
[2017-08-19] MEDS: POVIDONE-IODINE 5% OPHTH PREP SOL 30ML As Ordered (13:31)
[2017-08-19] MEDS: TRIAMCINOLONE PRES FR 40 MG/ML 1ML(TRIESENCE)(OR EYE ONLY)(J3300 PER 1MG) As Ordered (13:33)
[2017-08-19] MEDS: MOXIFLOXACIN IN BSS 0.25MG/0.25ML INTRACAMERAL INJ (OR EYE ONLY)(J2280) As Ordered (13:33)
[2017-08-19] MEDS: LIDOCAINE 1% SDV 5 ML VIAL As Ordered (13:33)
[2017-08-19] MEDS: AcetaZOLAMIDE 500 MG ER CAP PO (14:15)
[2017-08-19] MEDS ORDERED: TRIMETHOBENZAMIDE 300 MG CAP PO (14:30)
== END 2017-08-19 14:40 | disposition home or self-care (01) ==
LOC: M SDC 10:59
DX: H25.9 Unspecified age-related cataract (principal); I10 Essential (primary) hypertension; K21.9 Gastro-esophageal reflux disease without esophagitis; R56.9 Unspecified convulsions; Z79.899 Other long term (current) drug therapy; G47.30 Sleep apnea, unspecified; F72 Severe intellectual disabilities
CPT/HCPCS: 66984

== ENCOUNTER 2017-08-26 07:46 | Day surgery (SDC) | payer MEDICARE, MEDICAID ==
[2017-08-26] MEDS: TRIAMCINOLONE PRES FR 40 MG/ML 1ML(TRIESENCE)(OR EYE ONLY)(J3300 PER 1MG) As Ordered (06:41)
[2017-08-26] MEDS: MOXIFLOXACIN IN BSS 0.25MG/0.25ML INTRACAMERAL INJ (OR EYE ONLY)(J2280) As Ordered (06:41)
[2017-08-26] MEDS: LIDOCAINE 1% SDV 5 ML VIAL As Ordered (06:41)
[2017-08-26] MEDS: OFLOXACIN 0.3 % (OCUFLOX) OPTH SOL 5ML OS (07:00)
[2017-08-26] MEDS: PHENYLEPHRINE 2.5% OPHTH SOL 2ML OS (07:00)
[~2017-08-26 07:46] MED LIST changes: -BSS with VANC/TOB/EPI for EYE CASES IR; -MIDAZOLAM INJ 2 MG/2 ML VIAL (J2250) As Ordered; -PHENYLEPHRINE HCL 10 % OPHTH. SOL 5ML OD; +PHENYLEPHRINE HCL 10 % OPHTH. SOL 5ML OS; -fentaNYL 100 MCG/2 ML INJECTION (J3010) As Ordered
[2017-08-26] MEDS: LIDOCAINE 3.5 % 1ML OPHTH TOPICAL GEL OU (08:10)
[2017-08-26] MEDS: TROPICAMIDE 1% OPHTH SOLN 2ML OS (08:10)
[2017-08-26] MEDS: CYCLOPENTOLATE 2% OPHTH SOLN 2ML BTL OS (08:10)
[2017-08-26] MEDS ORDERED: diazePAM 5 MG TAB As Ordered (09:07)
[2017-08-26] MEDS: diazePAM 5 MG TAB PO (09:12)
[2017-08-26] MEDS ORDERED: fentaNYL 100 MCG/2 ML INJECTION (J3010) As Ordered (09:38)
[2017-08-26] MEDS ORDERED: MIDAZOLAM INJ 2 MG/2 ML VIAL (J2250) As Ordered (09:38)
[2017-08-26] MEDS: POVIDONE-IODINE 5% OPHTH PREP SOL 30ML As Ordered (09:39)
[2017-08-26] MEDS: HEALON DUET (HEALON 10MG/ML 0.55ML & HEALON ENDOCOAT 30MG/ML 0.85ML) As Ordered (09:39)
[2017-08-26] MEDS: BSS with VANC/TOB/EPI for EYE CASES IR (09:39)
[2017-08-26] MEDS: ACETYLCHOLINE OPHTH SOLN 1% 2ML (MIOCHOL-E) As Ordered (09:42)
[2017-08-26] MEDS ORDERED: AcetaZOLAMIDE 500 MG ER CAP As Ordered (10:26)
[2017-08-26] MEDS ORDERED: TRIMETHOBENZAMIDE 300 MG CAP PO (10:30)
[2017-08-26] MEDS: AcetaZOLAMIDE 500 MG ER CAP PO (10:36)
[2017-08-26] MEDS ORDERED: diazePAM 5 MG TAB PO (11:30)
== END 2017-08-26 10:59 | disposition home or self-care (01) ==
LOC: M SDC 07:46
DX: H25.9 Unspecified age-related cataract (principal); F72 Severe intellectual disabilities; I10 Essential (primary) hypertension; K21.9 Gastro-esophageal reflux disease without esophagitis; Z79.899 Other long term (current) drug therapy; F32.9 Major depressive disorder, single episode, unspecified; G47.30 Sleep apnea, unspecified
CPT/HCPCS: 66984

== ENCOUNTER → 2017-09-16 | Outpatient (CLI) | payer MEDICARE, MEDICAID | LOC: M PAIN 11:00 | DX: M25.579 Pain in unspecified ankle and joints of unspecified foot (principal); G89.29 Other chronic pain; F79 Unspecified intellectual disabilities; J30.9 Allergic rhinitis, unspecified; M19.90 Unspecified osteoarthritis, unspecified site; E66.01 Morbid (severe) obesity due to excess calories; Z68.42 Body mass index [BMI] 45.0-49.9, adult; Z79.899 Other long term (current) drug therapy; Z96.659 Presence of unspecified artificial knee joint; Z96.641 Presence of right artificial hip joint | CPT/HCPCS: G0463 ==

== ENCOUNTER → 2017-10-15 | Outpatient (REF) | payer MEDICARE, MEDICAID | LOC: M LAB REF 17:10 | DX: R30.0 Dysuria (principal) | CPT/HCPCS: 87086 ==

== ENCOUNTER → 2017-11-12 | Outpatient (CLI) | payer MEDICARE, MEDICAID ==
[2017-11-17 00:07] LABS: CHROMIUM PLASMA 1.3 ug/L (0.1-2.1)
[2017-11-17 00:07] LABS: PLASMA COBALT 1.7 ug/L (0.0-0.9)
== END ==
LOC: M LAB 08:27
DX: T56.891D Toxic effect of other metals, accidental (unintentional), subsequent encounter (principal)
CPT/HCPCS: 82495

== ENCOUNTER → 2017-12-15 | Outpatient (CLI) | payer MEDICARE, MEDICAID | LOC: M PAIN 11:15 | DX: G89.29 Other chronic pain (principal); M25.572 Pain in left ankle and joints of left foot; M79.18 Myalgia, other site; M25.571 Pain in right ankle and joints of right foot; M19.90 Unspecified osteoarthritis, unspecified site; E66.01 Morbid (severe) obesity due to excess calories; Z68.42 Body mass index [BMI] 45.0-49.9, adult; Z79.899 Other long term (current) drug therapy; Z96.659 Presence of unspecified artificial knee joint; Z96.641 Presence of right artificial hip joint | CPT/HCPCS: G0463 ==

== ENCOUNTER → 2017-12-22 | Outpatient (CLI) | payer MEDICARE, MEDICAID | LOC: M WHC 14:30 | DX: Z12.31 Encounter for screening mammogram for malignant neoplasm of breast (principal); Z01.419 Encounter for gynecological examination (general) (routine) without abnormal findings (principal); Z78.0 Asymptomatic menopausal state; Z92.89 Personal history of other medical treatment; Z12.12 Encounter for screening for malignant neoplasm of rectum; Z80.3 Family history of malignant neoplasm of breast | CPT/HCPCS: 77067 ==

== ENCOUNTER → 2018-01-24 | Outpatient (REF) | payer MEDICARE, MEDICAID | LOC: M LAB REF 13:41 | DX: N39.0 Urinary tract infection, site not specified (principal) | CPT/HCPCS: 87086 ==

== ENCOUNTER → 2018-03-09 | Outpatient (CLI) | payer MEDICARE, MEDICAID ==
[~2018-03-09] MED LIST changes: +/CELE20CA PO; +/DULO30CA OR; +/DULO30CA PO; +ACET65TA OR; -ACETAMINOPHEN 325 MG TAB PO; +AMMO12CR4 EX; +CALC600T57 PO; +CALC600T7 PO; +COUM1TAB19 PO; +CYMB1CAP5 PO; +CYMB60CA3 PO; +DICL0.1S7 TOP; +DULC5TAB PO; +FURO20TA2 OR; +KLOR10TA OR; +LASI40TA9 PO; +LIDO1DIS2 TD; +LISI-542 PO; +MACR100C43 PO; +MELA3TAB49 PO; +NEUR100C PO; +OMEP20CA3 PO; +OMEP20TA7 PO; +OXYB10TA PO; +OXYB5TAB10 PO; +OXYB5TAB5 OR; +OXYC1SOL3 PO; -PHENYLEPHRINE HCL 10 % OPHTH. SOL 5ML OS; +PRIL20CA9 PO; +PROT20TA11 PO; +PYRI1TAB5 PO; +REFR1DRO6 OP; +SALI0.6528; +SENN8.6T7 PO; +SING10TA32 PO; +SM I100T PO; +TOPA100T12 PO; +TOPI25TA2 PO; +TRAM50TA2 OR; +TYLE325T5 PO; +VICKOIN EX; +VOLT1GEL15 TD; +ZANA2CAP OR; +ZEST5TAB PO; +ZINC40OI EX; +ZIPR80CAP PO; +ZOFR4TAB14 PO; +[UNRECOGNIZED DRUG - OTHER] PO; +[UNRECOGNIZED DRUG - OTHER] TOP; +compound cream EXT
[2018-03-09 11:42] LABS: BASO % 0.3 % (0.0-1.0); EOS # 0.1 10^3/uL (0.0-0.50); EOS % 0.8 % (0.0-3.0); HEMATOCRIT 36.9 % (36.0-47.0); HEMOGLOBIN 11.5 g/dl (12.0-15.5); LYMPH # 2.4 10^3/uL (1.5-4.5); LYMPH % 16.6 % (24.0-44.0); MEAN CORPUSCULAR HEMOGLOBIN 27.9 pg (27.0-33.0); MEAN CORPUSCULAR HGB CONC 31.2 g/dl (32.0-36.5); MEAN CORPUSCULAR VOLUME 89.6 fl (80.0-96.0); MONO # 0.8 10^3/uL (0.0-0.8); MONO % 5.8 % (0.0-5.0); NEUTROPHILS % 76.1 % (36.0-66.0); PLATELET COUNT, AUTOMATED 413 10^3/uL (150-450); RED BLOOD COUNT 4.12 10^6/uL (4.00-5.40); WHITE BLOOD COUNT 14.4 10^3/uL (4.0-10.0)
[2018-03-09 12:23] LABS: ALBUMIN 3.2 GM/DL (3.2-5.2); ALT/SGPT 17 U/L (12-78); BILIRUBIN,TOTAL 0.2 MG/DL (0.2-1.0); BLOOD UREA NITROGEN 28 MG/DL (7-18); CALCIUM LEVEL 8.7 MG/DL (8.5-10.1); CARBON DIOXIDE LEVEL 24 MEQ/L (21-32); CHLORIDE LEVEL 106 MEQ/L (98-107); CREATININE FOR GFR 0.98 MG/DL (0.55-1.30); GLOMERULAR FILTRATION RATE > 60.0 (>51); GLUCOSE, FASTING 98 MG/DL (70-100); POTASSIUM SERUM 4.8 MEQ/L (3.5-5.1); SODIUM LEVEL 139 MEQ/L (136-145); TOTAL PROTEIN 7.6 GM/DL (6.4-8.2)
--- NOTE | 2018-03-09 12:49 | REP ---
THORACIC SPINE, THREE VIEWS: HISTORY: Back pain. There is no acute fracture or subluxation. There is an old compression fracture of the T10 vertebral body with minimal height loss. There is loss of height of several mid and lower thoracic intervertebral discs. Osteophytes are present throughout the thoracic spine. There is minimal scoliosis of the thoracic spine convex to the right. IMPRESSION: Degenerative change as described above. Electronically Signed by John Campo MD 03/09/2018 12:49 P
--- NOTE | 2018-03-09 13:04 | REP ---
LUMBAR SPINE, FIVE VIEWS: HISTORY: Back pain. There is no acute fracture or subluxation. The lumbar intervertebral discs are decreased in height consistent with disc degeneration. Osteophytes are present throughout the lumbar spine. There is narrowing of the left L3-4 through L5-S1 and right L4-5 and L5-S1 facet joints. There is scoliosis of the lower thoracic and lumbar spine convex to the left. IMPRESSION:Degenerative change as described above. Electronically Signed by John Campo MD 03/09/2018 01:14 P
== END ==
LOC: M LAB 10:24
PROVIDERS: ATTEND Family Medicine
DX: M51.37 Other intervertebral disc degeneration, lumbosacral region (principal); M51.34 Other intervertebral disc degeneration, thoracic region; I10 Essential (primary) hypertension; M15.0 Primary generalized (osteo)arthritis; M54.5 Low back pain

== ENCOUNTER → 2018-04-27 | Outpatient (CLI) | payer MEDICARE, MEDICAID ==
--- NOTE | 2018-05-10 00:32 | ECWPNPC ---
PATIENT NAME: ANASTASIA LOZANO : 1960 GENDER: FEMALE VISIT DATE: 04/27/2018 DISCHARGE DATE: 04/27/18 1419 VISIT LOCKED DATE TIME: PHYSICIAN: VINAYAK MOTA RESOURCE: VINAYAK MOTA REASON FOR APPOINTMENT 1. CHRONIC PAIN PT OF SW HISTORY OF PRESENT ILLNESS HISTORY OF PRESENT ILLNESS: HERE FOR F/U OF CHRONIC LOW BACK PAIN.SHE IS A RESIDENT OF [facility] .ACCOMPANIED IN EXAM ROOM WITH MOTHER AND WORKER.RATING LOW BACK PAIN 5/10 VAS.USING VOLTAREN GEL ON ANKLES THAT IS HELPFUL. PAIN THE PATIENT DESCRIBES THE PAIN... FALL RISK SCREENING: SCREENING : NO FALLS IN THE PAST YEAR. CURRENT MEDICATIONS TAKING LASIX 20 MG TABLET 1 TABLET ORALLY ONCE A DAY TAKING TOPAMAX 100 100MG TABLET 1 TAB P.O. TWICE A DAY TAKING OXYBUTYNIN CHLORIDE 10 MG TABLET EXTENDED RELEASE 24 HOUR 1 TAB(S) ORALLY DAILY IN A.M. TAKING ANUSOL-HC 25 MG SUPPOSITORY 1 SUPPOSITORY RECTAL TWICE DAILY NEEDED TAKING MILK OF MAGNESIA SUSPENSION 30 ML ORALLY NEEDED/ DAY 3 W/O BM. TAKING CYMBALTA 30 MG CAPSULE DELAYED RELEASE PARTICLES 1 CAPSULE ORALLY QHS TAKING CYMBALTA 60 MG CAPSULE DELAYED RELEASE PARTICLES 1 CAPSULE P.O. ONCE A DAY TAKING TYLENOL 500 TABLET 2 TABLET NEEDED ORALLY EVERY 6 HRS TAKING REFRESH 1.4-0.6 % SOLUTION OPHTHALMIC QHS PRN TAKING SARAH BROWN ARTHRITIS FORMULA 8-30 % CREAM DIRECTED EXTERNALLY Q 6 HOURS PRN PAIN APPLY TO AFFECTED AREAS TAKING LISINOPRIL 5 MG TABLET 1 TABLET ORALLY ONCE A DAY TAKING PROTONIX 40 MG TABLET DELAYED RELEASE 1 TABLET ORALLY ONCE A DAY TAKING MELATONIN 3 MG TABLET 1 TABLET AT BEDTIME NEEDED WITH FOOD ORALLY ONCE A DAY TAKING SALINE NASAL SPRAY 2 SPRAYS IN EACH NOSTRIL NEEDED INTRADERMALLY PRN TAKING SENNA S 8.6-50 MG TABLET 1 TABLET ORALLY BID THU- TAKING MONTELUKAST SODIUM 10 MG TABLET 1 TAB ORALLY BEFORE BEDTIME TAKING CALCIUM 500+D 500-400 MG-UNIT TABLET 1 TABLET WITH MEALS ORALLY 600MG/VIT D 400 MG TWICE DAILY TAKING PANTOPRAZOLE SODIUM 40 MG TABLET DELAYED RELEASE 1 TAB ORALLY DAILY TAKING VOLTAREN 1 % GEL DIRECTED TRANSDERMAL APPLY 2 GRAMS TO EACH ANKLE AND LOW BACK BID MEDICATION LIST REVIEWED AND RECONCILED WITH THE PATIENT PAST MEDICAL HISTORY MENTAL RETARDATION ALLERGIES ARTHRITIS MORBID OBESITY URGENCY AND OVERFLOW INCONTINENCE TOTAL CARE FOR HER MOTHER/HOPING FOR NH PLACEMENT SOON ALLERGIES N.K.D.A. SURGICAL HISTORY KNEE REPLACEMENT X 2 RIGHT HIP REPLACEMENT CHOLECYSTECTOMY POLY BREAST REDUCTION TUBAL LIGATION D&C FOR PMB ENDOMETRIAL POLYPS 04/2016 CATARACT SURGERY CATARACTS, BILATERALLY FAMILY HISTORY FATHER: MOTHER: ALIVE SIBLINGS: SISTER HTN LUPUS 1 BROTHER(S) , 4 SISTER(S) . 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 DIET: PORTION CONTROL. MARITAL STATUS: SINGLE. OTHERS AT HOME: JR, 12 TOTAL. PAIN CLINIC PFS, CLERGY, PUBLIC HEALTH REFERRALS PFS REFERRAL NEEDED?NO CLERGY REFERRAL NEEDED?NO PUBLIC HEALTH REFERRAL NEEDED?NO WAS THE PROVIDER NOTIFIED OF ANY PERTINENT INFO?NO HAS THE PATIENT BEEN EDUCATED REGARDING HIS/HER PLAN OF CARE?YES PLEASE DOCUMENT ANY ADDTIONAL DETAILS. FAMILY AND CAREGIVERS INVOLVED HAS THE PATIENT BEEN EDUCATED REGARDING PAIN, THE RISK FOR PAIN, THE IMPORTANCE OF EFFECTIVE PAIN MANAGEMENT, AND THE PAIN ASSESSMENT PROCESS?YES PLEASE DOCUMENT ANY ADDTIONAL DETAILS. FAMILY AND CAREGIVERS KEPT INVOLVED. ADVANCE DIRECTIVE ADVANCE DIRECTIVE DISCUSSED WITH PATIENT:YES IN THE PROCESS OF CHANGING EVERYTHING--WHEN COMPLETE THE MOM WILL BRING IN 09/16/17 REVIEWED ADREVIEWED WITH PATIENT 12/15/17 1223 JS. HOSPITALIZATION/MAJOR DIAGNOSTIC PROCEDURE SURGERY RELATED REVIEW OF SYSTEMS REVIEWED BY: PROVIDER: VINAYAK FREEMAN . CONSTITUTIONAL: ANY CHANGE IN YOUR MEDICAL CONDITION? NO . CHILLS NO . FEVER NO . INFECTION: DO YOU HAVE NEW INFECTIONS? NO . DO YOU HAVE HISTORY OF MRSA? NO . MUSCULOSKELETAL: ANY NEW PATTERNS OF PAIN OR NUMBNESS? NO . GASTROENTEROLOGY: ANY NEW CHANGE IN BOWEL CONTROL? NO . GENITOURINARY: ANY NEW CHANGE IN BLADDER CONTROL? NO . IS THERE A CHANCE YOU COULD BE ? NO . HEMATOLOGY/LYMPH: DO YOU TAKE ANY BLOOD THINNERS? (FOR EXAMPLE- COUMADIN, PLAVIX, AGGRENOX, PLATEL, PRADAXA, OR XARELTO) NO . WHEN WAS YOUR LAST DOSE? DATE: TIME: . NEUROLOGY: HAVE YOU FALLEN IN THE PAST 12 MONTHS? NO . ANY NEW EXTREMITY NUMBNESS OR WEAKNESS? NO . CARDIOLOGY: DO YOU HAVE A PACEMAKER OR DEFIBRILLATOR? NO . RESPIRATORY: HAVE YOU BEEN SICK IN THE PAST WEEK? YES, SINUSITIS TX'D W ABX GETTING BETTER . FEVER NO . FLU LIKE SYMPTOMS? YES, NON-PRODUCTIVE . COUGH NO . INTEGUMENTARY: DO YOU HAVE ANY RASHES OR OPEN SORES? NO . ALLERGIC/IMMUNO: ARE YOU ALLERGIC TO IV DYE? NO . ANY NEW ALLERGIES? NO . PSYCHIATRIC: DO YOU HAVE THOUGHTS OF HURTING YOURSELF OR SOMEONE ELSE? NO . ARE YOU ABUSED, NEGLECTED, OR IN AN UNSAFE ENVIRONMENT? NO . ENDOCRINOLOGY: ARE YOU DIABETIC? NO . OTHER: DO YOU NEED ANY PRESCRIPTIONS? NO . IF YES, PLEASE LIST: ____ . ANY NEW PROBLEMS WITH YOUR MEDICATIONS? NO . WHEN DID YOU LAST EAT? ____ . WHEN DID YOU LAST DRINK? ____ . WHAT DID YOU LAST DRINK? ____ . NAME OF PERSON DRIVING YOU HOME? ____ . DO YOU HAVE ANY OTHER QUESTIONS OR CONCERNS NO . VITAL SIGNS WT 246.8 LBS, HT 59 IN, BMI 49.84 INDEX, BP 156/75 MM HG, HR 91 /MIN, RR 18 /MIN, TEMP 97.4 F, OXYGEN SAT % 100%, NA INITIALS SC 13:30, REVIEWED BY: EM. EXAMINATION GENERAL EXAMINATION: GENERAL APPEARANCE:AWAKE,ALERT ,PLEAASANT . PSYCHAFFECT NORMAL . LUNGS:LUNG DANIELS ARE CLEAR TO AUSCULTATION BILATERALLY. GOOD MOVEMENT OF AIR . HEART:S1, S2 IN A REGULAR RATE AND RHYTHM. NO SIGNIFICANT MURMURS, RUBS OR GALLOPS NOTED . ASSESSMENTS OTHER CHRONIC PAIN - G89.29 (PRIMARY) TREATMENT OTHER CHRONIC PAIN REFILL VOLTAREN GEL, 1 %, DIRECTED, TRANSDERMAL, APPLY 2 GRAMS TO EACH ANKLE AND LOW BACK BID, 30 DAY(S), 2 TUBE, REFILLS 2 PROCEDURE CODES FA211 ESTABILISHED PATIENT [facility] CHARGE DISPOSITION & COMMUNICATION FOLLOW UP F/U W PRIMARY CARE ELECTRONICALLY SIGNED BY PETE LOGAN ON 05/09/2018 AT 02:56 PM EDT DISCLAIMER : THIS IS A VISIT SUMMARY EXTRACTED FROM THE [employer] CHART. IT IS NOT A COPY OF THE [employer] PROGRESS NOTE. ADENIKE
== END ==
LOC: M PAIN 13:15
PROVIDERS: ATTEND Nurse Practitioner Family
DX: M54.5 Low back pain (principal); G89.29 Other chronic pain; M19.90 Unspecified osteoarthritis, unspecified site; E66.01 Morbid (severe) obesity due to excess calories; Z68.42 Body mass index [BMI] 45.0-49.9, adult; Z79.899 Other long term (current) drug therapy; Z96.659 Presence of unspecified artificial knee joint; Z96.641 Presence of right artificial hip joint

== ENCOUNTER → 2018-06-03 | Outpatient (CLI) | payer MEDICARE, MEDICAID ==
[~2018-06-03] MED LIST changes: -/CELE20CA PO; -/DULO30CA OR; -/DULO30CA PO; -AMMO12CR4 EX; +AMMO12CR7 EX; +CELE1CAP4 PO; +CYMB1CAP5 OR; +SENN1TAB41 PO; -SENN8.6T7 PO
--- NOTE | 2018-06-03 13:17 | REP ---
Chest x-ray: Three views. History: Cough. Comparison chest x-ray: December 17, 2016. Findings: There are clips in the upper abdomen on the right. The lungs are well inflated and clear. Pleural angles are sharp. Heart size is normal. There are degenerative changes in the thoracic spine. Pulmonary vasculature is not increased. Impression: No acute disease. Electronically Signed by Michael Lund MD 06/03/2018 02:21 P
== END ==
LOC: M WUC 11:30
PROVIDERS: ATTEND Family Medicine
DX: R05 Cough (principal)

== ENCOUNTER → 2018-09-04 | Outpatient (CLI) | payer MEDICARE, MEDICAID ==
--- NOTE | 2018-09-04 10:36 | REP ---
Clinical: Pain. Technique: AP, lateral, bilateral oblique views of the left foot. Comparison: 08/11/2001 Findings: Prior partial osteotomy involving the fifth toe proximal phalanx unchanged in appearance compared to 2001. Remainder examination is essentially normal for age. No acute fracture or dislocation. No subcutaneous emphysema or foreign body. Impression: Prior partial osteotomy involving the fifth toe proximal phalanx. No acute fracture or dislocation. Electronically Signed by Kye Sharif MD 09/04/2018 10:28 A
== END ==
LOC: M WUC 10:13
PROVIDERS: ATTEND Physician Assistant
DX: M79.672 Pain in left foot (principal); S90.32XA Contusion of left foot, initial encounter; W18.30XA Fall on same level, unspecified, initial encounter; Y92.009 Unspecified place in unspecified non-institutional (private) residence as the place of occurrence of the external cause

== ENCOUNTER → 2018-10-12 | Outpatient (CLI) | payer MEDICARE, MEDICAID ==
[~2018-10-12] MED LIST changes: -OXYB10TA PO; +OXYB10TA2 PO
[2018-10-12 11:05] LABS: BASO # 0.1 10^3/uL (0.0-0.2); BASO % 0.4 % (0.0-1.0); EOS # 0.1 10^3/uL (0.0-0.50); EOS % 0.9 % (0.0-3.0); HEMATOCRIT 36.6 % (36.0-47.0); HEMOGLOBIN 11.4 g/dl (12.0-15.5); LYMPH # 1.8 10^3/uL (1.5-4.5); LYMPH % 13.5 % (24.0-44.0); MEAN CORPUSCULAR HEMOGLOBIN 28.6 pg (27.0-33.0); MEAN CORPUSCULAR HGB CONC 31.1 g/dl (32.0-36.5); MEAN CORPUSCULAR VOLUME 91.7 fl (80.0-96.0); MONO # 0.8 10^3/uL (0.0-0.8); MONO % 5.9 % (0.0-5.0); NEUTROPHILS # 10.4 10^3/uL (1.8-7.7); PLATELET COUNT, AUTOMATED 368 10^3/uL (150-450); RED BLOOD COUNT 3.99 10^6/uL (4.00-5.40); WHITE BLOOD COUNT 13.1 10^3/uL (4.0-10.0)
[2018-10-12 11:30] LABS: ALBUMIN 3.4 GM/DL (3.2-5.2); BILIRUBIN,TOTAL 0.2 MG/DL (0.2-1.0); CALCIUM LEVEL 8.9 MG/DL (8.5-10.1); CREATININE FOR GFR 1.13 MG/DL (0.55-1.30); GLOMERULAR FILTRATION RATE 52.6 (>51); POTASSIUM SERUM 4.8 MEQ/L (3.5-5.1); TOTAL PROTEIN 7.7 GM/DL (6.4-8.2)
--- NOTE | 2018-10-12 15:43 | REP ---
REASON: Vomiting. COMPARISON: None. The frontal view of the chest has been compared to prior two view examination of the chest 06/03/2018. The frontal view of the chest is unchanged. There is no free subdiaphragmatic air. The intestinal gas pattern is nonspecific. There is no evidence of intestinal obstruction or free air. Chronic changes are seen involving the imaged osseous structures. IMPRESSION: No evidence of acute disease. Electronically Signed by Augustine Aldana DO 10/12/2018 05:09 P
== END ==
LOC: M LAB 10:08
PROVIDERS: ATTEND Internal Medicine
DX: D72.829 Elevated white blood cell count, unspecified (principal); R11.10 Vomiting, unspecified; F41.9 Anxiety disorder, unspecified

== ENCOUNTER → 2018-12-24 | Outpatient (REF) | payer MEDICARE, MEDICAID | LOC: M SFHCWAGY 09:42 | PROVIDERS: ATTEND Nurse Practitioner Family | DX: Z12.4 Encounter for screening for malignant neoplasm of cervix (principal) ==

== ENCOUNTER → 2018-12-24 | Outpatient (CLI) | payer MEDICARE, MEDICAID ==
--- NOTE | 2018-12-24 11:20 | REPMRS ---
Patient History The patient states she had a clinical breast exam in 11/2018. Patient is postmenopausal and is nulliparous. Family history of breast cancer at age 50 or over in maternal grandmother. Reductions of both breasts, 1998. No Hormone Replacement Therapy 3D TOMOSYNTHESIS WAS PERFORMED. The [facility] lifetime risk for breast cancer is 11.9%. Digital Woman Screen Mammo: December 24, 2018 - Exam #: [id number] Bilateral CC and MLO view(s) were taken. Technologist: Mamta Silver, Technologist Prior study comparison: December 22, 2017, bilateral digital woman screen mammo performed at [facility]. December 15, 2016, digital woman screen mammo performed at [facility]. FINDINGS: There are scattered fibroglandular densities. There has been no change in the appearance of the mammogram from the prior studies. There is a mild amount of residual fibroglandular tissue which is fairly symmetric. There is no interval development of dominant mass, architectural distortion, or clustered microcalcification suggestive of malignancy. Assessment: BI-RADS/ACR category 1 mammogram. Negative Mammogram. Recommendation Routine screening mammogram in 1 year (for women over age 40). This mammogram was interpreted with the aid of an FDA-approved computer-aided dectection system. Electronically Signed By: Nima Harley MD 12/24/18 [id number]
== END ==
LOC: M WHC 09:25
PROVIDERS: ATTEND Nurse Practitioner Family
DX: Z01.419 Encounter for gynecological examination (general) (routine) without abnormal findings (principal); Z12.31 Encounter for screening mammogram for malignant neoplasm of breast; Z78.0 Asymptomatic menopausal state; Z98.890 Other specified postprocedural states
CPT/HCPCS: 77063; 77067; G0101; G0123

== ENCOUNTER → 2019-02-09 | Outpatient (CLI) | payer MEDICARE, MEDICAID | LOC: M LAB 09:11 | PROVIDERS: ATTEND Internal Medicine | DX: D72.829 Elevated white blood cell count, unspecified (principal); R11.10 Vomiting, unspecified; F41.9 Anxiety disorder, unspecified ==

== ENCOUNTER 2019-03-30 07:06 | Day surgery (SDC) | payer MEDICARE, MEDICAID ==
[~2019-03-30] VITALS: Ht 152.4 cm; Wt 104.8 kg
[~2019-03-30 07:06] MED LIST changes: +CETI10CH PO; +DESI13CR2 EX; +LUBR1OIN OP; +MAPA500C PO; +NEOSOI EXT; +NS 1,000 ML IV ONE; -OXYB10TA2 PO; +OXYB10TA23 PO; +PREP1CRE RC; +REFR0.5D8 OP; +ROBI1LIQ9 PO
[2019-03-30] MEDS ORDERED: LIDOCAINE 2% INJ 100 MG/5 ML SDV (FOR ANES.) As Ordered ONE (08:00)
[2019-03-30] MEDS ORDERED: propofoL 200 MG/20 ML VIAL As Ordered ONE (08:00)
--- NOTE | 2019-03-30 08:27 | ROOR ---
Patient Name: Alaina Bucio Procedure Date: 03/30/2019 8:11 AM Date of : 1960 Age: 58 Room: [facility] Gender: Female Note Status: Finalized Procedure: Upper Endoscopy + Biopsies Indications: Heartburn Providers: Gutierrez Chatman MD Referring MD: TRAMAINE LAZO DO Requesting Provider: Medicines: Monitored Anesthesia Care Complications: No immediate complications. Procedure: Pre-Anesthesia Assessment: - The heart rate, respiratory rate, oxygen saturations, blood pressure, adequacy of pulmonary ventilation, and response to care were monitored throughout the procedure. The Endoscope was introduced through the mouth, and advanced to the second part of duodenum. The upper GI endoscopy was accomplished without difficulty. The patient tolerated the procedure well. Findings: The Z-line was regular and was found 38 cm from the incisors. A medium-sized hiatal hernia was present. Localized mild inflammation characterized by congestion (edema) and erythema was found in the gastric antrum. Biopsies were taken with a cold forceps for Helicobacter pylori testing. The exam of the duodenum was otherwise normal. Impression: - Z-line regular, 38 cm from the incisors. - Medium-sized hiatal hernia. - Mucosal changes suspicious for gastritis. Biopsied. - The examination was otherwise normal. Recommendation: - Patient has a contact number available for emergencies. The signs and symptoms of potential delayed complications were discussed with the patient. Return to normal activities tomorrow. Written discharge instructions were provided to the patient. - High fiber diet. - Discharge patient to home. - Follow an antireflux regimen. - Continue present medications. - Await pathology results. - Telephone GI clinic for pathology results in 1 week. - Return to referring physician. - The findings and recommendations were discussed with the designated responsible adult. Gutierrez Chatman MD Gutierrez Chatman MD 03/30/2019 8:27:03 AM Electronically signed by Gutierrez Chatman MD Number of Addenda: 0 Note Initiated On: 03/30/2019 8:11 AM Estimated Blood Loss: Estimated blood loss: none.
--- NOTE | 2019-03-30 08:53 | ROOR ---
Patient Name: Alaina Bucio Procedure Date: 03/30/2019 8:12 AM Date of : 1960 Age: 58 Room: [facility] Gender: Female Note Status: Finalized Procedure: Total Colonoscopy to Cecum + Cold Snare Polypectomy + Hemoclips Indications: Positive Cologuard test Providers: Gutierrez Chatman MD Referring MD: TRAMAINE LAZO DO Requesting Provider: Medicines: Monitored Anesthesia Care Complications: No immediate complications. Procedure: Pre-Anesthesia Assessment: - The heart rate, respiratory rate, oxygen saturations, blood pressure, adequacy of pulmonary ventilation, and response to care were monitored throughout the procedure. The Colonoscope was introduced through the anus and advanced to the cecum, identified by appendiceal orifice and ileocecal valve. The colonoscopy was performed without difficulty. The patient tolerated the procedure well. The quality of the bowel preparation was excellent. Findings: The perianal and digital rectal examinations were normal. Non-bleeding internal hemorrhoids were found during retroflexion. The hemorrhoids were small and Grade I (internal hemorrhoids that do not prolapse). A small polyp was found at 10 cm proximal to the anus. The polyp was sessile. The polyp was removed with a cold snare. Resection and retrieval were complete. To prevent bleeding after the polypectomy, one hemostatic clip was successfully placed (MR conditional). There was no bleeding at the end of the procedure. The exam was otherwise without abnormality on direct and retroflexion views. Impression: - Non-bleeding internal hemorrhoids. - One small polyp at 10 cm proximal to the anus, removed with a cold snare. Resected and retrieved. Clip (MR conditional) was placed. - The examination was otherwise normal on direct and retroflexion views. - The exam was otherwise normal to the cecum. Recommendation: - Patient has a contact number available for emergencies. The signs and symptoms of potential delayed complications were discussed with the patient. Return to normal activities tomorrow. Written discharge instructions were provided to the patient. - High fiber diet. - Discharge patient to home. - Continue present medications. - Await pathology results. - Telephone GI clinic for pathology results in 1 week. - Repeat colonoscopy for surveillance based on pathology results. - Return to referring physician. - The findings and recommendations were discussed with the patient's family. Gutierrez Chatman MD Gutierrez Chatman MD 03/30/2019 8:53:28 AM Electronically signed by Gutierrez Chatman MD Number of Addenda: 0 Note Initiated On: 03/30/2019 8:12 AM Estimated Blood Loss: Estimated blood loss: none.
[2019-03-30 09:25] VITALS: BP 137/70
== END 2019-03-30 09:32 | disposition home or self-care (01) ==
LOC: M OPP 07:06
PROVIDERS: ATTEND Internal Medicine Gastroenterology
DX: K64.0 First degree hemorrhoids (principal); K63.5 Polyp of colon; R19.5 Other fecal abnormalities; K44.9 Diaphragmatic hernia without obstruction or gangrene; K31.89 Other diseases of stomach and duodenum; R12 Heartburn; G47.30 Sleep apnea, unspecified; Z79.899 Other long term (current) drug therapy

== ENCOUNTER 2019-09-20 15:49 | Inpatient (IN) | payer MEDICARE, MEDICAID ==
[~2019-09-20] VITALS: Ht 152.4 cm; Wt 101.3 kg
[~2019-09-20 15:49] MED LIST changes: +HYDR26CR RC; -NS 1,000 ML IV ONE; -PREP1CRE RC; -REFR0.5D8 OP; +REFR0.5D8 OU; -VOLT1GEL15 TD; +VOLT1GEL15 TOP
[2019-09-20] MEDS ORDERED: ONDANSETRON 4MG/2ML VIAL IV ONE (17:15)
[2019-09-20] MEDS ORDERED: NS 1,000 ML IV ONE (17:15)
--- NOTE | 2019-09-20 17:55 | REPVR ---
PROCEDURE INFORMATION: Exam: CT Abdomen And Pelvis Without Contrast Exam date and time: 09/20/2019 5:18 PM Age: 58 years old Clinical indication: Abdominal pain; Generalized; Additional info: Abd pain TECHNIQUE: Imaging protocol: Computed tomography of the abdomen and pelvis without contrast. Axial, coronal and sagittal reformatted images were created and reviewed. Radiation optimization: All CT scans at this facility use at least one of these dose optimization techniques: automated exposure control; mA and/or kV adjustment per patient size (includes targeted exams where dose is matched to clinical indication); or iterative reconstruction. COMPARISON: CT ABD PELVIS W/O CONTRAST 10/18/2016 4:55 PM FINDINGS: Lungs: Mild linear stranding and groundglass at the lung bases, likely due to atelectasis and/or scarring. Liver: Diffuse hepatic steatosis. Gallbladder and bile ducts: Status post cholecystectomy. No biliary ductal dilatation. Pancreas: Unremarkable. Spleen: Unremarkable. Adrenals: Unremarkable. Kidneys and ureters: No mass. No radiodense calculi. No hydronephrosis. Stomach and bowel: Multiple dilated loops of small bowel with air-fluid levels and abrupt transition to decompressed small bowel in the right mid abdomen (axial image 91 and sagittal image 62). No definite bowel wall thickening. No pneumatosis. Appendix: Appendix not identified with certainty but no right lower quadrant inflammatory change to suggest acute appendicitis. Intraperitoneal space: Trace nonspecific free pelvic fluid, likely reactive. No organized fluid collection. No free air. Vasculature: Unremarkable. No aneurysm. Lymph nodes: No pathologically enlarged lymph nodes. Bladder: Unremarkable. Reproductive: Status post hysterectomy. Bones/joints: No acute osseous abnormality. Osteopenia. Degenerative changes. Total bilateral hip arthroplasties in place. Soft tissues: Unremarkable. IMPRESSION: 1. Limited noncontrast examination. 2. Small bowel obstruction, as described above. Query adhesions versus internal hernia. 3. Additional findings, as above. Electronically signed by: Mariano Preston On 09/20/2019 17:54:59 PM
[2019-09-20] MEDS ORDERED: CIPROFLOXACIN 500MG TABLET PO SCH (18:00)
[2019-09-20] MEDS ORDERED: DULO1CAP6 PO (20:21)
[2019-09-20] MEDS ORDERED: FURO20TA2 PO (20:21)
[2019-09-20 20:28] LABS: BASO % 0.1 % (0.0-1.0); HEMATOCRIT 42.4 % (36.0-47.0); HEMOGLOBIN 13.2 g/dl (12.0-15.5); LYMPH # 1.6 10^3/uL (1.5-5.0); MEAN CORPUSCULAR HEMOGLOBIN 27.8 pg (27.0-33.0); MEAN CORPUSCULAR HGB CONC 31.1 g/dl (32.0-36.5); MEAN CORPUSCULAR VOLUME 89.5 fl (80.0-96.0); MONO # 0.8 10^3/uL (0.0-0.8); MONO % 2.9 % (0.0-5.0); NEUTROPHILS # 24.5 10^3/uL (1.5-8.5); NEUTROPHILS % 90.6 % (36.0-66.0); PLATELET COUNT, AUTOMATED 517 10^3/uL (150-450); RED BLOOD COUNT 4.74 10^6/uL (4.00-5.40)
[2019-09-20 20:48] LABS: ALBUMIN 3.7 GM/DL (3.2-5.2); ALT/SGPT 31 U/L (12-78); BILIRUBIN,DIRECT < 0.1 MG/DL (0.0-0.2); BILIRUBIN,TOTAL 0.4 MG/DL (0.2-1.0); BLOOD UREA NITROGEN 41 MG/DL (7-18); CALCIUM LEVEL 9.5 MG/DL (8.5-10.1); CARBON DIOXIDE LEVEL 23 MEQ/L (21-32); CHLORIDE LEVEL 108 MEQ/L (98-107); CREATININE FOR GFR 1.56 MG/DL (0.55-1.30); GLOMERULAR FILTRATION RATE 36.2 (>51); GLUCOSE, FASTING 127 MG/DL (70-100); LIPASE 60 U/L (73-393); POTASSIUM SERUM 4.7 MEQ/L (3.5-5.1); SODIUM LEVEL 140 MEQ/L (136-145); TOTAL PROTEIN 8.4 GM/DL (6.4-8.2)
--- NOTE | 2019-09-20 20:50 | CR.PDOC ---
General Surgery Consultation Date of Consultation 09/20/19 History and Physical CONSULT REPORT FOR: emergency room provider/hospitalist service REASON FOR CONSULTATION: abdominal pain, diarrhea, vomiting HISTORY OF PRESENT ILLNESS: Patient is a 58-year-old female with intellectual disability, complaining of 2 days history of nausea vomiting and abdominal pain. Most of the history obtained from her mom. She reports that she has been having diarrhea characterized by multiple loose stools that are nonbloody for the past couple of days and subsequently had nausea and then crampy lower quadrant abdominal pain. Patient does not seem her normal self to her mom and has not been eating well and thus she got concerned and she brought her to the emergency room. No fevers or chills reported. No sick contacts reported. PAST MEDICAL HISTORY: 1. Mental retardation 2. Morbid obesity 3. Gastroesophageal reflux disease 4. Seizure disorder 5. Obstructive sleep apnea 6. Arthritis 7. Hypertension 8. Urinary incontinence . PAST SURGICAL HISTORY: INCLUDES: 1. Cholecystectomy 2. Breast reduction 3. Bilateral knee replacement 4. Bilateral hip replacement 5. Cataract surgery ALLERGIES: Please see below. FAMILY HISTORY: Noncontributory HOME MEDICATIONS: Please see below. REVIEW OF SYSTEMS: Review of systems obtained from the mom. Patient primarily points to her abdomen by umbilicus where she hurts. She reports multiple loose stools but no fevers or chills, poor appetite. No chest pains or shortness of breath being reported. Baseline is mainly sedentary, dependent on her mother though she does ambulate a little bit with a walker. PHYSICAL EXAMINATION: VITALS SIGNS: Please see below. GENERAL APPEARANCE: Patient overall looks relatively comfortable. SKIN: Warm and dry. HEENT: Normocephalic, atraumatic. Hollins palpebral conjunctiva, anicteric sclerae. Lips and mucosa appear dry. NECK: Short, supple. LUNGS: Clear to auscultation bilaterally. No wheezing appreciated. HEART: No chest wall abnormalities. Regular rate and rhythm with no murmurs appreciated. ABDOMEN: Abdomen is morbidly obese, soft, mildly distended, tympanitic to percussion. Mild tenderness on deep palpation around the periumbilical area without rebound or guarding. ANCILLARIES: . LABORATORY DATA: Please see below. IMAGING STUDIES: . 's noncontrast CT abdomen and pelvis IMPRESSION AND PLAN: Small bowel obstruction vs gastroenteritis She has prominent symptoms of diarrhea (nonbloody) and abdominal pain and minimal (late) of vomiting today and yesterday which is not typical for mechanical bowel obstruction, although on review of CT there are some nondilated loops of bowel at the distal ileum. Also review of her labs show prominent leukocytosis which points to possible infectious nature of her symptoms. Suggest try to get a sample of her stool to be tested,IVF hydration and NPO for now. If she keeps on throwing up, she will an NGT. I think we can hold off on the NG tube for now. will follow Vital Signs Vital Signs Date Time Temp Pulse Resp B/P (MAP) Pulse Ox O2 Delivery O2 Flow Rate FiO2 09/20/19 17:27 09/20/19 15:49 98.5 102 16 95 Room Air Laboratory Data Labs 24H Laboratory Tests 2 09/20/19 18:10: Urine Color YELLOW, Urine Appearance CLOUDYH, Urine pH 6.0, Urine Specific Floyd 1.023, Urine Protein 1+H, Urine Glucose (UA) NEGATIVE, Urine Ketones NEGATIVE, Urine Blood NEGATIVE, Urine Nitrite NEGATIVE, Urine Bilirubin NEGATIVE, Urine Urobilinogen 0.2, Urine Leukocyte Esterase 2+H, Urine WBC (Auto) 23H, Urine RBC (Auto) 2, Urine Hyaline Casts (Auto) 2, Urine Bacteria (Auto) NEGATIVE, Urine Squamous Epithelial Cells 14, Urine Sperm (Auto) 09/20/19 20:09: Immature Granulocyte % (Auto) 0.4, Neutrophils (%) (Auto) 90.6H, Lymphocytes (%) (Auto) 6.0L, Monocytes (%) (Auto) 2.9, Eosinophils (%) (Auto) 0.0, Basophils (%) (Auto) 0.1, Neutrophils # (Auto) 24.5H, Lymphocytes # (Auto) 1.6, Monocytes # (Auto) 0.8, Eosinophils # (Auto) 0.0, Basophils # (Auto) 0.0, Nucleated Red Blood Cells % (auto) 0.0 09/20/19 20:10: CBC/BMP Laboratory Tests 09/20/19 20:09 Microbiology Microbiology 09/20/19 Urine Culture, Received Pending Home Medications Scheduled Calcium Carbonate/Vitamin D3 (Calcium 600-Vit D3 200 Tablet) 1 Tab Tab, 1 TAB PO DAILY, (Reported) Cetirizine HCl (Cetirizine HCl) 10 Mg Tab.chew, 10 MG PO DAILY, (Reported) Duloxetine Hcl (Duloxetine HCl) 60 Mg Capsule.dr, 60 MG PO BID, (Reported) Furosemide (Furosemide) 20 Mg Tablet, 20 MG PO DAILY, (Reported) Lisinopril (Lisinopril) 5 Mg Tab, 5 MG PO DAILY, (Reported) Melatonin (Melatonin) 3 Mg Tab, 3 MG PO QHS, (Reported) Montelukast Sodium (Singulair) 10 Mg Tab, 10 MG PO DAILY, (Reported) Oxybutynin Chloride (Oxybutynin Chloride ER) 10 Mg Tab, 10 MG PO DAILY, (Reported) Pantoprazole Sodium (Protonix) 20 Mg Tab, 40 MG PO DAILY, (Reported) Topiramate (Topamax) 100 Mg Tab, 100 MG PO BID, (Reported) Scheduled PRN Acetaminophen (Mapap) 500 Mg Capsule, 500 MG PO BIDP PRN for PAIN, (Reported) Carboxymethylcellulose Sodium (Refresh Tears) 15 Ml Drops, 1 DROP OU BID PRN for DRY EYES, (Reported) Diclofenac Sodium (Voltaren) 1 % Gel, 1 APPLIC TOP BID PRN for PAIN, (Reported) APPLY TO ANKLES AND LOWER BACK Zinc Oxide (Desitin) 454 Gm Cream..g., 1 APPLIC EX DAILY PRN for RASH, (Reported) Allergies Coded Allergies: No Known Allergies (Unverified , 03/23/19) KAYLA WALTERS MD Sep 20, 2019 20:49
[2019-09-20] MEDS ORDERED: ACETAMINOPHEN TAB 650MG DOSE (2X325MG) PO PRN (22:15)
[2019-09-20] MEDS ORDERED: ONDANSETRON 4MG/2ML VIAL IV PRN (22:30)
--- NOTE | 2019-09-20 22:44 | HPEPDOC ---
[facility] Medical History & Physical Date of Admission Sep 20, 2019 Date of Service: Sep 20, 2019 History and Physical CHIEF COMPLAINT: ab pain and N/V HISTORY OF PRESENT ILLNESS: Pt is a 58y/o f with severe intellectual disability, hypertension, GERD, seizure disorder, degenerative arthritis, mood disorder, morbid obesity, urinary incontinence, congenital strabismus who presents with 2 days, nausea, vomiting and abdominal pain. Patient unable to participate in history due to severe intellectual disability. Therefore history taken from report and notes. Patient was in her usual state of health until 2 days prior to admission when patient's mother noted that patient had episode of diarrhea (nonbloody). Patient also began complaining of abdominal pain. Then day prior to admission. Patient began complaining of nausea/vomiting (nonbloody, nonbilious). Patient's symptoms continued due to concern mother brought her to the emergency room for further evaluation and treatment. Mother denies any other symptoms including fever, chills, cough, chest pain, shortness of breath, dysuria, leg pain or swelling. PAST MEDICAL HISTORY: 1. Severe intellectual disability. 2. Congenital strabismus. 3. Morbid obesity. 4. GERD. 5. Seizure disorder. 6. MAL. 7. Degenerative arthritis. 8. Mood disorder 9. Hypertension. 10. Urinary incontinence PAST SURGICAL HISTORY: 1. Cholecystectomy. 2. Breast reduction. 3. Bilateral knee replacement. 4. Bilateral hip replacement 5. Cataract surgery SOCIAL HISTORY: Marital status: Never Resides in: shelter Tobacco use: Never smoker ETOH: None Illicit drug use: None FAMILY HISTORY: Hypertension ALLERGIES: Please see below. REVIEW OF SYSTEMS: ROS unable to obtain due to patient's severe intellectual disability HOME MEDICATIONS: Please see below. PHYSICAL EXAMINATION: VITAL SIGNS: See below GENERAL APPEARANCE: Morbidly obese female laying in stretcher, mother at bedside. HEENT: Strabismus, pupils reactive, EOMI, dry mucous membranes, fissured tongue CARDIOVASCULAR:. RRR, normal S1/2, + murmur, no RG. LUNGS: CTA B/L, no W/R/R. ABDOMEN: Soft, hypoactive bowel sounds, diffuse tenderness to palpation, mild distention. EXTREMITIES: No pitting edema, intact distal pulses. NEUROLOGICAL:. No focal deficits appreciated, though exam limited by patient's mental status. PSYCHIATRIC: Agitated. LABORATORY DATA: See below. IMAGING: CT ab/pelvis (personally reviewed): IMPRESSION: 1. Limited noncontrast examination. 2. Small bowel obstruction, as described above. Query adhesions versus internal hernia. 3. Additional findings, as above. MICROBIOLOGY: Please see below. ASSESSMENT: Pt is a 58y/o f with severe intellectual disability, hypertension, GERD, seizure disorder, degenerative arthritis, mood disorder, morbid obesity, urinary incontinence, congenital strabismus who presents with 2 days, nausea, vomiting and abdominal pain, found to have a small bowel obstruction by imaging. Surgery consulted for nothing by mouth, intravenous fluids, serial abdominal exams, +/- NG tube. Patient also found to have UTI. PLAN: #SBO Admit to inpatient Nothing by mouth Zofran for nausea. +/- NG tube more distention, pain, or patient not improving GI panel Appreciate surgery consult Intravenous fluids Trend WBC Trend fever curve Cipro/Flagyl #ERIKA Likely prerenal given the BUN/creatinine ratio Intravenous fluids. Trend creatinine #UTI. Antibiotics as above. Follow-up urine culture. #Hypertension Continue home meds Trend BP #Seizure disorder. Seizure precautions Continue home meds. #GERD. Continue home meds #Mood disorder Continue home meds #MAL O2 at night Continue to monitor #Urinary incontinence. Continue home meds #Morbid obesity. Supportive measures. Lifestyle Modification discussion on discharge. #Severe intellectual disability Reorient as needed DVT PPX: Heparin given kidney dysfunction Disposition: [facility] clinical improvement Vital Signs Vital Signs Date Time Temp Pulse Resp B/P (MAP) Pulse Ox O2 Delivery O2 Flow Rate FiO2 09/20/19 21:28 97.8 83 18 197/98 (131) 96 Room Air Laboratory Data Labs 24H Laboratory Tests 2 09/20/19 18:10: Urine Color YELLOW, Urine Appearance CLOUDYH, Urine pH 6.0, Urine Specific [place] 1.023, Urine Protein 1+H, Urine Glucose (UA) NEGATIVE, Urine Ketones NEGATIVE, Urine Blood NEGATIVE, Urine Nitrite NEGATIVE, Urine Bilirubin NEGATIVE, Urine Urobilinogen 0.2, Urine Leukocyte Esterase 2+H, Urine WBC (Auto) 23H, Urine RBC (Auto) 2, Urine Hyaline Casts (Auto) 2, Urine Bacteria (Auto) NEGATIVE, Urine Squamous Epithelial Cells 14, Urine Sperm (Auto) 09/20/19 20:09: Immature Granulocyte % (Auto) 0.4, Neutrophils (%) (Auto) 90.6H, Lymphocytes (%) (Auto) 6.0L, Monocytes (%) (Auto) 2.9, Eosinophils (%) (Auto) 0.0, Basophils (%) (Auto) 0.1, Neutrophils # (Auto) 24.5H, Lymphocytes # (Auto) 1.6, Monocytes # (Auto) 0.8, Eosinophils # (Auto) 0.0, Basophils # (Auto) 0.0, Nucleated Red Blood Cells % (auto) 0.0 09/20/19 20:10: Anion Gap 9, Glomerular Filtration Rate 36.2L, Calcium Level 9.5, Total Bi lirubin 0.4, Direct Bilirubin < 0.1, Aspartate Amino Transf (AST/SGOT) 28, Alanine Aminotransferase (ALT/SGPT) 31, Alkaline Phosphatase 127H, Total Protein 8.4H, Albumin 3.7, Albumin/Globulin Ratio 0.8L, Lipase 60L CBC/BMP Laboratory Tests 09/20/19 20:09 09/20/19 20:10 Microbiology Microbiology 09/20/19 Urine Culture, Received Pending Home Medications Scheduled Calcium Carbonate/Vitamin D3 (Calcium 600-Vit D3 200 Tablet) 1 Tab Tab, 1 TAB PO DAILY Cetirizine HCl (Cetirizine HCl) 10 Mg Tab.chew, 10 MG PO DAILY Duloxetine Hcl (Duloxetine HCl) 60 Mg Capsule.dr, 60 MG PO BID Furosemide (Furosemide) 20 Mg Tablet, 20 MG PO DAILY Lisinopril (Lisinopril) 5 Mg Tab, 5 MG PO DAILY Melatonin (Melatonin) 3 Mg Tab, 3 MG PO QHS Montelukast Sodium (Singulair) 10 Mg Tab, 10 MG PO DAILY Oxybutynin Chloride (Oxybutynin Chloride ER) 10 Mg Tab, 10 MG PO DAILY Pantoprazole Sodium (Protonix) 20 Mg Tab, 40 MG PO DAILY Topiramate (Topamax) 100 Mg Tab, 100 MG PO BID Scheduled PRN Acetaminophen (Mapap) 500 Mg Capsule, 500 MG PO BIDP PRN for PAIN Carboxymethylcellulose Sodium (Refresh Tears) 15 Ml Drops, 1 DROP OU BID PRN for DRY EYES Diclofenac Sodium (Voltaren) 1 % Gel, 1 APPLIC TOP BID PRN for PAIN APPLY TO ANKLES AND LOWER BACK Zinc Oxide (Desitin) 454 Gm Cream..g., 1 APPLIC EX DAILY PRN for RASH Allergies Coded Allergies: No Known Allergies (Unverified , 03/23/19) A-FIB/CHADSVASC A-FIB History Current/History of A-Fib/PAF?: No JAYLAN STANLEY MD Sep 20, 2019 22:44
[2019-09-20 23:30] VITALS: BP 188/86
[2019-09-21] VITALS (9 sets, daily range): BP systolic 143–229; BP diastolic 65–110
[2019-09-21] MEDS ORDERED: CIPROFLOXACIN 500MG TABLET PO ONE
[2019-09-21] MEDS ORDERED: MORPHINE 2 MG/ML 1ML VIAL (J2270) IV PRN (01:00)
[2019-09-21] MEDS ORDERED: hydrALAZINE 20MG/ML 1ML VIAL (J0360 PER 20MG) IV PRN ×2 (01:00→09:00)
[2019-09-21] MEDS: metroNIDAZOLE (FLAGYL) 500MG TABLET PO SCH ×3 (01:36→14:00)
[2019-09-21] MEDS: NS 1,000 ML IV SCH ×3 (01:38→21:52)
[2019-09-21] MEDS ORDERED: hydrALAZINE 20MG/ML 1ML VIAL (J0360 PER 20MG) IV ONE (04:00)
[2019-09-21 06:02] LABS: HEMATOCRIT 40.7 % (36.0-47.0); HEMOGLOBIN 12.6 g/dl (12.0-15.5); MEAN CORPUSCULAR HEMOGLOBIN 28.1 pg (27.0-33.0); MEAN CORPUSCULAR VOLUME 90.6 fl (80.0-96.0); PLATELET COUNT, AUTOMATED 481 10^3/uL (150-450); RED BLOOD COUNT 4.49 10^6/uL (4.00-5.40); WHITE BLOOD COUNT 26.6 10^3/uL (4.0-10.0)
[2019-09-21] MEDS: CIPROFLOXACIN 500MG TABLET PO SCH ×2 (06:12→16:48)
[2019-09-21 06:23] LABS: CALCIUM LEVEL 9.2 MG/DL (8.5-10.1); CREATININE FOR GFR 1.84 MG/DL (0.55-1.30); GLOMERULAR FILTRATION RATE 29.9 (>51); MAGNESIUM LEVEL 2.6 MG/DL (1.8-2.4); POTASSIUM SERUM 4.5 MEQ/L (3.5-5.1)
[2019-09-21 06:27] LABS: INR 1.13; PROTHROMBIN TIME 14.2 SECONDS (11.8-14.0)
[2019-09-21] MEDS: HEPARIN SOD (PORCINE) 5000UNITS/ML 1ML VIAL/SYRINGE SC SCH ×2 (08:46→21:52)
--- NOTE | 2019-09-21 09:37 | REP ---
Clinical: Small bowel obstruction follow-up. Technique: Frontal view of the chest with supine and cross-table lateral views of the abdomen and pelvis. Findings: Dilated air filled loops of small bowel are identified and consistent with small bowel obstruction. No obvious free air to suggest perforation. Evidence of prior cholecystectomy and bilateral hip replacement. Skeletal structures demonstrate degenerative changes. Frontal view of the chest cannot exclude subtle left lower lobe atelectasis. Impression: Findings compatible with small bowel obstruction. Electronically Signed by Kye Sharif MD 09/21/2019 09:29 A
[2019-09-21] MEDS: metroNIDAZOLE 500 MG in IV 1 EA IV SCH (21:52)
--- NOTE | 2019-09-21 22:07 | IPNPDOC ---
Date Seen The patient was seen on 09/21/19. Progress Note SUBJECTIVE: Patient seen and examined at bedside. Patient doing well with improved pain after NG tube placement. Patient tolerating NG tube. Unable to obtain full ROS due to patient's mental status. OBJECTIVE PHYSICAL EXAMINATION: VITAL SIGNS: Please see below. GENERAL APPEARANCE: Morbidly obese female laying in bed, mother at bedside. HEENT: NG tube in place CARDIOVASCULAR: RRR, normal S1/2, + murmur, no RG. LUNGS: CTA B/L, no W/R/R. ABDOMEN: Soft, hypoactive bowel sounds, diffuse tenderness to palpation, minimal distention EXTREMITIES: No pitting edema, intact distal pulses. NEUROLOGICAL:. No focal deficits appreciated, though exam limited by patient's mental status. PSYCHIATRIC: Agitated. LABORATORY DATA, IMAGING STUDIES, MICROBIOLOGY: Please see below. ASSESSMENT AND PLAN: Pt is a 58y/o f with severe intellectual disability, hypertension, GERD, seizure disorder, degenerative arthritis, mood disorder, morbid obesity, urinary incontinence, congenital strabismus who presents with 2 days, nausea, vomiting and abdominal pain, found to have a small bowel obstruction by imaging. Surgery consulted for nothing by mouth, intravenous fluids, serial abdominal exams, now s/p NG tube placed by surgery. Patient also found to have UTI. PLAN: #SBO Admit to inpatient Nothing by mouth Zofran for nausea. s/p NG tube placed by surgery GI panel Appreciate surgery consult Intravenous fluids Trend WBC Trend fever curve Cipro/Flagyl #ERIKA Likely prerenal given the BUN/creatinine ratio Intravenous fluids. Trend creatinine #UTI. Antibiotics as above. Follow-up urine culture. #Hypertension Continue home meds Trend BP #Seizure disorder. Seizure precautions Continue home meds. #GERD. Continue home meds #Mood disorder Continue home meds #MAL O2 at night Continue to monitor #Urinary incontinence. Continue home meds #Morbid obesity. Supportive measures. Lifestyle Modification discussion on discharge. #Severe intellectual disability Reorient as needed DVT PPX: Heparin given kidney dysfunction [facility] VS, I&O, 24H, Fishbone Vital Signs/I&O Vital Signs Date Time Temp Pulse Resp B/P (MAP) Pulse Ox O2 Delivery O2 Flow Rate FiO2 09/21/19 20:00 98.3 89 16 143/65 (91) 100 Room Air I&O- Last 24 Hours up to 6 AM 7/22/20 05:59 Intake Total 100 ml Output Total 0 ml Balance 100 ml Laboratory Data 24H LABS Laboratory Tests 2 09/21/19 05:35: Nucleated Red Blood Cells % (auto) 0.0, Prothrombin Time 14.2H, Prothromb Time International Ratio 1.13, Anion Gap 10, Glomerular Filtration Rate 29.9L, Calcium Level 9.2, Magnesium Level 2.6H CBC/BMP Laboratory Tests 09/21/19 05:35 Microbiology Microbiology 09/20/19 Urine Culture, Received Pending JAYLNA STANLEY MD Sep 21, 2019 22:06
[2019-09-21] MEDS: CIPROFLOXACIN 400 MG in IV 1 EA IV SCH (23:02)
[2019-09-22] VITALS: BP 130/59
[2019-09-22 04:00] VITALS: BP 119/56
[2019-09-22] MEDS: metroNIDAZOLE 500 MG in IV 1 EA IV SCH (05:25)
[2019-09-22 05:52] LABS: HEMATOCRIT 32.2 % (36.0-47.0); MEAN CORPUSCULAR HEMOGLOBIN 28.3 pg (27.0-33.0); MEAN CORPUSCULAR HGB CONC 30.4 g/dl (32.0-36.5); MEAN CORPUSCULAR VOLUME 93.1 fl (80.0-96.0); RED BLOOD COUNT 3.46 10^6/uL (4.00-5.40); WHITE BLOOD COUNT 16.8 10^3/uL (4.0-10.0)
[2019-09-22] MEDS: NS 1,000 ML IV SCH (05:54)
[2019-09-22 05:56] LABS: HEMOGLOBIN 9.8 g/dl (12.0-15.5); PLATELET COUNT, AUTOMATED 363 10^3/uL (150-450)
[2019-09-22 06:09] LABS: CALCIUM LEVEL 8.1 MG/DL (8.5-10.1); CREATININE FOR GFR 1.42 MG/DL (0.55-1.30); GLOMERULAR FILTRATION RATE 40.3 (>51); POTASSIUM SERUM 3.8 MEQ/L (3.5-5.1)
[2019-09-22 07:39] VITALS: BP 139/68
[2019-09-22] MEDS: HEPARIN SOD (PORCINE) 5000UNITS/ML 1ML VIAL/SYRINGE SC SCH (09:25)
[2019-09-22] MEDS: CIPROFLOXACIN 400 MG in IV 1 EA IV SCH (11:45)
[2019-09-22 11:59] VITALS: BP 132/82
== END 2019-09-23 16:20 | disposition home or self-care (01) | DRG 389 ==
LOC: M ED 15:49 → M ED INP 22:12 → ENRESERV 22:23 → M PCU 23:25
PROVIDERS: ADMIT Internal Medicine; ATTEND Internal Medicine
DX: K56.609 Unspecified intestinal obstruction, unspecified as to partial versus complete obstruction (principal); F72 Severe intellectual disabilities; N17.9 Acute kidney failure, unspecified; N39.0 Urinary tract infection, site not specified; I10 Essential (primary) hypertension; K21.9 Gastro-esophageal reflux disease without esophagitis; G40.909 Epilepsy, unspecified, not intractable, without status epilepticus; M19.90 Unspecified osteoarthritis, unspecified site; E66.01 Morbid (severe) obesity due to excess calories; F39 Unspecified mood [affective] disorder; G47.33 Obstructive sleep apnea (adult) (pediatric); Z96.641 Presence of right artificial hip joint; Z96.642 Presence of left artificial hip joint; R32 Unspecified urinary incontinence; Z79.899 Other long term (current) drug therapy

== ENCOUNTER → 2019-12-26 | Outpatient (CLI) | payer MEDICARE, MEDICAID ==
[~2019-12-26] MED LIST changes: +DULO1CAP6 PO; +FURO20TA2 PO
--- NOTE | 2019-12-26 14:45 | REPMRS ---
Patient History The patient states she had a clinical breast exam in December 2019. Family history of breast cancer at age 50 or over in maternal grandmother. Reductions of both breasts, 1998. No Hormone Replacement Therapy 3D TOMOSYNTHESIS WAS PERFORMED. [facility] Volpara breast density b. Digital Woman Screen Mammo: December 26, 2019 - Exam #: [id number] Bilateral CC and MLO view(s) were taken. Technologist: RT Po Prior study comparison: December 24, 2018, bilateral digital woman screen mammo performed at [facility]. December 22, 2017, bilateral digital woman screen mammo performed at [facility]. FINDINGS: There are scattered fibroglandular densities. There has been no change in the appearance of the mammogram from the prior studies. There is a mild amount of residual fibroglandular tissue which is fairly symmetric. There is no interval development of dominant mass, architectural distortion, or clustered microcalcification suggestive of malignancy. Assessment: BI-RADS/ACR category 1 mammogram. Negative Mammogram. Recommendation Routine screening mammogram in 1 year (for women over age 40). This mammogram was interpreted with the aid of an FDA-approved computer-aided dectection system. Electronically Signed By: Nima Harley MD 12/26/19 [id number]
== END ==
LOC: M WHC 09:46
PROVIDERS: ATTEND Nurse Practitioner Family
DX: Z01.419 Encounter for gynecological examination (general) (routine) without abnormal findings (principal); Z12.31 Encounter for screening mammogram for malignant neoplasm of breast; Z98.890 Other specified postprocedural states; Z12.12 Encounter for screening for malignant neoplasm of rectum
CPT/HCPCS: 77063; 77067; 82270; G0101

== ENCOUNTER → 2020-04-10 | Outpatient (CLI) | payer SELFPAY ==
[~2020-04-10] MED LIST changes: -LISI-542 PO; +LISI-898 PO
== END ==
LOC: M LABSMTC 09:33
PROVIDERS: ATTEND Pediatrics
DX: Z20.822 Contact with and (suspected) exposure to COVID-19 (principal)

== ENCOUNTER → 2020-11-14 | Outpatient (CLI) | payer MEDICARE, MEDICAID | LOC: M WUC 09:50 | PROVIDERS: ATTEND Family Medicine | DX: I12.9 Hypertensive chronic kidney disease with stage 1 through stage 4 chronic kidney disease, or unspecified chronic kidney disease (principal); N18.30 Chronic kidney disease, stage 3 unspecified; Z53.9 Procedure and treatment not carried out, unspecified reason ==

== ENCOUNTER → 2020-11-15 | Outpatient (CLI) | payer MEDICARE, MEDICAID ==
[2020-11-15 11:07] LABS: ALBUMIN 3.1 GM/DL (3.2-5.2); CALCIUM LEVEL 8.9 MG/DL (8.8-10.2); CREATININE FOR GFR 1.45 MG/DL (0.55-1.30); GLOMERULAR FILTRATION RATE 39.2 (>45); POTASSIUM SERUM 5.3 MEQ/L (3.5-5.1); TOTAL PROTEIN 7.2 GM/DL (6.4-8.2)
[2020-11-15 11:58] LABS: HEMATOCRIT 38.3 % (36.0-47.0); HEMOGLOBIN 11.8 g/dl (12.0-15.5); MEAN CORPUSCULAR HEMOGLOBIN 28.7 pg (27.0-33.0); MEAN CORPUSCULAR HGB CONC 30.8 g/dl (32.0-36.5); MEAN CORPUSCULAR VOLUME 93.2 fl (80.0-96.0); PLATELET COUNT, AUTOMATED 342 10^3/uL (150-450); RED BLOOD COUNT 4.11 10^6/uL (4.00-5.40); WHITE BLOOD COUNT 12.6 10^3/uL (4.0-10.0)
[2020-11-15 15:38] LABS: BILIRUBIN,TOTAL 0.2 MG/DL (0.2-1.0)
== END ==
LOC: M WUC 08:13
PROVIDERS: ATTEND Family Medicine
DX: I12.9 Hypertensive chronic kidney disease with stage 1 through stage 4 chronic kidney disease, or unspecified chronic kidney disease (principal); N18.30 Chronic kidney disease, stage 3 unspecified

== ENCOUNTER → 2021-01-02 | Outpatient (CLI) | payer MEDICARE, MEDICAID ==
[~2021-01-02] MED LIST changes: -CYMB60CA3 PO; +CYMB60CA4 PO
--- NOTE | 2021-01-02 14:30 | REPMRS ---
Patient History The patient states she had a clinical breast exam in December 2020. Family history of breast cancer at age 50 or over in maternal grandmother. Reductions of both breasts, 1998. No Hormone Replacement Therapy Tomosynthesis is performed. Volpara breast density is a. [facility] lifetime risk of breast cancer 11.2%. Patient states no breast complaints today. Patient has signed MRS History Sheet. Digital Woman Screen Mammo: January 02, 2021 - Exam #: [id number] Bilateral CC and MLO view(s) were taken. Technologist: RT Po Prior study comparison: December 26, 2019, bilateral digital woman screen mammo performed at [facility] [place]. December 24, 2018, bilateral digital woman screen mammo performed at [facility] [place]. FINDINGS: There are scattered fibroglandular densities. There has been no change in the appearance of the mammogram from the prior studies. There is a mild amount of residual fibroglandular tissue which is fairly symmetric. There is no interval development of dominant mass, architectural distortion, or clustered microcalcification suggestive of malignancy. Assessment: BI-RADS/ACR category 1 mammogram. Negative Mammogram. Recommendation Routine screening mammogram in 1 year (for women over age 40). This mammogram was interpreted with the aid of an FDA-approved computer-aided dectection system. Electronically Signed By: Nima Harley MD 01/02/21 [id number]
== END ==
LOC: M WHC 12:20
PROVIDERS: ATTEND Nurse Practitioner Women's Health
DX: Z12.31 Encounter for screening mammogram for malignant neoplasm of breast (principal); Z80.3 Family history of malignant neoplasm of breast; Z98.890 Other specified postprocedural states
CPT/HCPCS: 77063; 77067; G0463

== ENCOUNTER → 2021-04-24 | Outpatient (REF) | payer MEDICARE, MEDICAID ==
[~2021-04-24] MED LIST changes: -LISI-898 PO; +LISI5TAB11 PO
== END ==
LOC: M PLALAB 10:48
PROVIDERS: ATTEND Advanced Practice Midwife
DX: R30.0 Dysuria (principal)

== ENCOUNTER → 2021-12-30 | Outpatient (REF) | payer MEDICARE, MEDICAID | LOC: M LAB REF 12:08 | PROVIDERS: ATTEND Physician Assistant | DX: N39.0 Urinary tract infection, site not specified (principal) ==

== ENCOUNTER → 2022-01-06 | Outpatient (CLI) | payer MEDICARE, MEDICAID | LOC: M WUC 11:00 | PROVIDERS: ATTEND Physician Assistant Surgical | DX: Z96.649 Presence of unspecified artificial hip joint (principal); T56.891D Toxic effect of other metals, accidental (unintentional), subsequent encounter; Z53.9 Procedure and treatment not carried out, unspecified reason ==

== ENCOUNTER → 2022-01-14 | Outpatient (CLI) | payer MEDICARE, MEDICAID | LOC: M WUC 11:44 | PROVIDERS: ATTEND Physician Assistant Surgical | DX: Z96.649 Presence of unspecified artificial hip joint (principal); T56.891D Toxic effect of other metals, accidental (unintentional), subsequent encounter ==

== ENCOUNTER 2022-01-28 21:11 | Inpatient (IN) | payer MEDICARE, MEDICAID ==
[~2022-01-28] VITALS: Ht 152.4 cm; Wt 103.9 kg
[~2022-01-28 21:11] MED LIST changes: -DESI13CR2 EX; +DESI13CR2 EXT
[2022-01-28 23:30] LABS: BASO # 0.1 10^3/uL (0.0-0.2); BASO % 0.2 % (0.0-1.0); HEMATOCRIT 40.3 % (36.0-47.0); HEMOGLOBIN 12.5 g/dl (12.0-15.5); LYMPH # 1.4 10^3/uL (1.5-5.0); LYMPH % 5.7 % (24.0-44.0); MEAN CORPUSCULAR HEMOGLOBIN 28.7 pg (27.0-33.0); MEAN CORPUSCULAR VOLUME 92.4 fl (80.0-96.0); MONO # 0.8 10^3/uL (0.0-0.8); MONO % 3.1 % (2.0-8.0); NEUTROPHILS # 22.8 10^3/uL (1.5-8.5); NEUTROPHILS % 90.4 % (36.0-66.0); PLATELET COUNT, AUTOMATED 382 10^3/uL (150-450); RED BLOOD COUNT 4.36 10^6/uL (4.00-5.40); WHITE BLOOD COUNT 25.3 10^3/uL (4.0-10.0)
[2022-01-28 23:51] LABS: CHLORIDE LEVEL 101 MMOL/L (98-107); POTASSIUM SERUM 5.2 MMOL/L (3.5-5.1); SODIUM LEVEL 135 MMOL/L (136-145)
[2022-01-28 23:52] LABS: CARBON DIOXIDE LEVEL 21 MMOL/L (20-31)
[2022-01-28 23:53] LABS: ALBUMIN 4.2 G/DL (3.2-5.2)
[2022-01-28 23:57] LABS: BLOOD UREA NITROGEN 53 MG/DL (9-23); CALCIUM LEVEL 9.7 MG/DL (8.3-10.6); GLUCOSE, FASTING 149 MG/DL (74-106); LIPASE 33 U/L (12-53)
[2022-01-28 23:58] LABS: ALKALINE PHOSPHATASE 112 U/L (46-116); CK-MB VALUE MASS 2.8 NG/ML (<3.6)
[2022-01-28 23:59] LABS: AMYLASE 53 U/L (30-118); BILIRUBIN,DIRECT < 0.1 MG/DL (<0.4); BILIRUBIN,TOTAL 0.2 MG/DL (0.3-1.2); CREATININE FOR GFR 1.78 MG/DL (0.55-1.30); GLOMERULAR FILTRATION RATE 30.7 (>45); TOTAL PROTEIN 8.2 G/DL (5.7-8.2)
[2022-01-29] LABS: ALT/SGPT 17 U/L (7.0-40); AST/SGOT 24 U/L (<34)
[2022-01-29] MEDS ORDERED: ONDANSETRON 4MG 2ML VIAL IV ONE
[2022-01-29 00:01] LABS: CPK CREATINE PHOSPHOKINASE 156 U/L (34-145); MB/CK RELATIVE INDEX 1.79 (< OR =4)
[2022-01-29] MEDS ORDERED: PIPERACILLIN/TAZOBACTAM SOD 3.375 GM in D5W MINI-BAG PLUS 50 ML IV ONE (02:00)
[2022-01-29] MEDS ORDERED: SALI0.6530 (02:02)
[2022-01-29] MEDS ORDERED: ANUS2.5C2 PR (02:02)
[2022-01-29] MEDS ORDERED: CALC-356 PO (02:02)
[2022-01-29] MEDS ORDERED: REFROIN OU (02:38)
[2022-01-29] MEDS ORDERED: CELLOPD OU ×2 (02:38)
[2022-01-29] MEDS ORDERED: CVS100LI4 PO (02:38)
[2022-01-29] MEDS ORDERED: DEBR6.5S4 AU (02:38)
[2022-01-29] MEDS ORDERED: DICL1GEL3 TOP (02:38)
[2022-01-29] MEDS ORDERED: MAALSUS19 PO (02:38)
[2022-01-29] MEDS ORDERED: APPLTAB2 PO (02:38)
[2022-01-29] MEDS ORDERED: NEOM28OI EXT (02:38)
[2022-01-29] MEDS ORDERED: ACET-897 PO (02:38)
[2022-01-29] MEDS ORDERED: CETI-24 PO (02:38)
[2022-01-29] MEDS ORDERED: FAMO40TA3 PO (02:38)
[2022-01-29] MEDS ORDERED: PIPERACILLIN/TAZOBACTAM SOD 3.375 GM in D5W MINI-BAG PLUS 50 ML IV SCH (04:35)
[2022-01-29] MEDS ORDERED: ANUSOL HC CREAM 30GM PR PRN (04:45)
[2022-01-29] MEDS ORDERED: SODIUM CHLORIDE NASAL 0.65% SPRAY BTL (OCEAN) PRN (04:45)
[2022-01-29] MEDS: NS 1,000 ML IV SCH ×3 (05:46→18:35)
[2022-01-29] MEDS: HEPARIN SOD (PORCINE) 5000UNITS/ML 1ML VIAL/SYRINGE SC SCH ×3 (05:56→22:19)
[2022-01-29] MEDS ORDERED: ONDANSETRON 4MG 2ML VIAL IV PRN (06:00)
[2022-01-29] MEDS ORDERED: HOME MED LIST COMPLETE! XX SCH (06:10)
[2022-01-29] MEDS ORDERED: lisinopriL 5 MG TAB PO SCH (09:00)
[2022-01-29] MEDS: TOPIRAMATE (TopAMAX) 100 MG TAB PO SCH ×2 (09:00→23:56)
[2022-01-29] MEDS: DULoxetine 30MG CAPSULE (CYMBALTA) PO SCH ×2 (09:00→22:20)
[2022-01-29] MEDS: oxyBUTYnin *DITROPAN XL* 5 MG TABCR PO SCH (09:00)
[2022-01-29] MEDS: POLYVINYL ALCOHOL OPHTH SOLN 15 ML(LIQUITEARS) OU SCH ×2 (09:00→23:56)
[2022-01-29] MEDS: PIPERACILLIN/TAZOBACTAM SOD 2.25 GM in D5W MINI-BAG PLUS 50 ML IV SCH ×3 (10:02→21:35)
[2022-01-29 12:19] LABS: MAGNESIUM LEVEL 2.3 MG/DL (1.8-2.4)
[2022-01-29 12:21] LABS: CALCIUM LEVEL 9.2 MG/DL (8.3-10.6); CREATININE FOR GFR 1.81 MG/DL (0.55-1.30); GLOMERULAR FILTRATION RATE 30.2 (>45); POTASSIUM SERUM 5.3 MMOL/L (3.5-5.1)
[2022-01-29] MEDS ORDERED: LIDOCAINE 1% MDV 20ML VIAL As Ordered ONE (14:29)
[2022-01-29] MEDS ORDERED: SOD POLYSTYRENE SULFONATE SUSP 30GM 120ML ENEMA PR ONE (15:00)
[2022-01-29 16:14] LABS: BASO # 0.1 10^3/uL (0.0-0.2); BASO % 0.2 % (0.0-1.0); HEMATOCRIT 39.7 % (36.0-47.0); HEMOGLOBIN 12.3 g/dl (12.0-15.5); LYMPH # 1.2 10^3/uL (1.5-5.0); LYMPH % 4.7 % (24.0-44.0); MEAN CORPUSCULAR HEMOGLOBIN 28.7 pg (27.0-33.0); MEAN CORPUSCULAR VOLUME 92.5 fl (80.0-96.0); MONO # 0.8 10^3/uL (0.0-0.8); MONO % 3.2 % (2.0-8.0); NEUTROPHILS # 23.5 10^3/uL (1.5-8.5); NEUTROPHILS % 91.5 % (36.0-66.0); PLATELET COUNT, AUTOMATED 438 10^3/uL (150-450); RED BLOOD COUNT 4.29 10^6/uL (4.00-5.40); WHITE BLOOD COUNT 25.6 10^3/uL (4.0-10.0)
[2022-01-29 16:20] LABS: INR 1.04; PROTHROMBIN TIME 13.8 SECONDS (12.5-14.5)
[2022-01-29] MEDS: PANTOPRAZOLE 40MG VIAL IV SCH (16:37)
[2022-01-29 17:49] LABS: ERYTHROCYTE SEDIMENTATION RATE 65 mm/hr (0-30)
[2022-01-29 18:24] LABS: CALCIUM LEVEL 9.6 MG/DL (8.3-10.6); CREATININE FOR GFR 1.95 MG/DL (0.55-1.30); GLOMERULAR FILTRATION RATE 27.7 (>45); POTASSIUM SERUM 4.4 MMOL/L (3.5-5.1)
[2022-01-29] MEDS ORDERED: FAMOTIDINE 20 MG TAB PO SCH (21:00)
[2022-01-29 21:45] VITALS: BP 163/73
[2022-01-29] MEDS: MONTELUKAST 10 MG TAB PO SCH (22:20)
[2022-01-29] MEDS: CETIRIZINE (ZyrTEC) 10 MG TAB PO SCH (22:20)
[2022-01-30] VITALS: BP 137/64
[2022-01-30] MEDS: PIPERACILLIN/TAZOBACTAM SOD 2.25 GM in D5W MINI-BAG PLUS 50 ML IV SCH ×2 (02:08→09:53)
[2022-01-30 04:00] VITALS: BP 135/61
[2022-01-30] MEDS: NS 1,000 ML IV SCH ×3 (05:23→18:24)
[2022-01-30] MEDS: HEPARIN SOD (PORCINE) 5000UNITS/ML 1ML VIAL/SYRINGE SC SCH ×3 (05:24→21:19)
[2022-01-30] MEDS: SODIUM CHLORIDE 0.9% INJ 10 ML SYR IV SCH ×2 (05:25→17:33)
[2022-01-30 06:21] LABS: BASO # 0.1 10^3/uL (0.0-0.2); BASO % 0.3 % (0.0-1.0); HEMATOCRIT 32.9 % (36.0-47.0); LYMPH # 2.1 10^3/uL (1.5-5.0); LYMPH % 10.6 % (24.0-44.0); MEAN CORPUSCULAR HEMOGLOBIN 29.3 pg (27.0-33.0); MEAN CORPUSCULAR VOLUME 94.5 fl (80.0-96.0); MONO # 1.2 10^3/uL (0.0-0.8); MONO % 6.2 % (2.0-8.0); NEUTROPHILS % 82.3 % (36.0-66.0); PLATELET COUNT, AUTOMATED 347 10^3/uL (150-450); RED BLOOD COUNT 3.48 10^6/uL (4.00-5.40); WHITE BLOOD COUNT 19.4 10^3/uL (4.0-10.0)
[2022-01-30 06:38] LABS: HEMOGLOBIN 10.2 g/dl (12.0-15.5); MAGNESIUM LEVEL 2.2 MG/DL (1.8-2.4)
[2022-01-30 06:41] LABS: CALCIUM LEVEL 8.1 MG/DL (8.3-10.6); CREATININE FOR GFR 1.6 MG/DL (0.55-1.30); GLOMERULAR FILTRATION RATE 34.8 (>45); POTASSIUM SERUM 4.4 MMOL/L (3.5-5.1)
[2022-01-30 08:00] VITALS: BP 135/60
[2022-01-30] MEDS: DULoxetine 30MG CAPSULE (CYMBALTA) PO SCH ×2 (09:52→21:18)
[2022-01-30] MEDS: TOPIRAMATE (TopAMAX) 100 MG TAB PO SCH ×2 (09:53→21:19)
[2022-01-30] MEDS: PANTOPRAZOLE 40MG VIAL IV SCH (09:53)
[2022-01-30] MEDS: oxyBUTYnin *DITROPAN XL* 5 MG TABCR PO SCH (09:53)
[2022-01-30] MEDS: POLYVINYL ALCOHOL OPHTH SOLN 15 ML(LIQUITEARS) OU SCH ×2 (09:54→21:19)
[2022-01-30 12:00] VITALS: BP 142/64
[2022-01-30] MEDS: PIPERACILLIN/TAZOBACTAM SOD 3.375 GM in D5W MINI-BAG PLUS 50 ML IV SCH ×2 (14:09→21:18)
[2022-01-30] MEDS: ACETAMINOPHEN 500 MG TAB PO PRN (15:32)
[2022-01-30 16:00] VITALS: BP 138/64
[2022-01-30 20:55] VITALS: BP 134/60
[2022-01-30] MEDS: MONTELUKAST 10 MG TAB PO SCH (21:18)
[2022-01-30] MEDS: CETIRIZINE (ZyrTEC) 10 MG TAB PO SCH (21:18)
[2022-01-31 00:06] VITALS: BP 112/53
[2022-01-31] MEDS: PIPERACILLIN/TAZOBACTAM SOD 3.375 GM in D5W MINI-BAG PLUS 50 ML IV SCH ×4 (01:51→20:06)
[2022-01-31 04:30] VITALS: BP 120/56
[2022-01-31 05:04] LABS: BASO # 0.1 10^3/uL (0.0-0.2); BASO % 0.5 % (0.0-1.0); EOS # 0.1 10^3/uL (0.0-0.5); EOS % 0.3 % (0.0-3.0); HEMATOCRIT 31.8 % (36.0-47.0); HEMOGLOBIN 9.5 g/dl (12.0-15.5); LYMPH % 18.8 % (24.0-44.0); MEAN CORPUSCULAR HEMOGLOBIN 28.5 pg (27.0-33.0); MEAN CORPUSCULAR HGB CONC 29.9 g/dl (32.0-36.5); MEAN CORPUSCULAR VOLUME 95.5 fl (80.0-96.0); MONO # 1.1 10^3/uL (0.0-0.8); MONO % 6.9 % (2.0-8.0); NEUTROPHILS # 11.5 10^3/uL (1.5-8.5); NEUTROPHILS % 73.1 % (36.0-66.0); PLATELET COUNT, AUTOMATED 313 10^3/uL (150-450); RED BLOOD COUNT 3.33 10^6/uL (4.00-5.40); WHITE BLOOD COUNT 15.8 10^3/uL (4.0-10.0)
[2022-01-31] MEDS: HEPARIN SOD (PORCINE) 5000UNITS/ML 1ML VIAL/SYRINGE SC SCH ×3 (05:33→20:07)
[2022-01-31] MEDS: SODIUM CHLORIDE 0.9% INJ 10 ML SYR IV SCH ×2 (05:35→16:27)
[2022-01-31 06:31] LABS: MAGNESIUM LEVEL 2.2 MG/DL (1.8-2.4)
[2022-01-31 06:33] LABS: CALCIUM LEVEL 8.2 MG/DL (8.3-10.6); CREATININE FOR GFR 1.37 MG/DL (0.55-1.30); GLOMERULAR FILTRATION RATE 41.6 (>45); POTASSIUM SERUM 4.3 MMOL/L (3.5-5.1)
[2022-01-31] MEDS ORDERED: BISACODYL 10 MG SUPP PR ONE (07:10)
[2022-01-31] MEDS: DULoxetine 30MG CAPSULE (CYMBALTA) PO SCH ×2 (08:34→20:06)
[2022-01-31] MEDS: TOPIRAMATE (TopAMAX) 100 MG TAB PO SCH ×2 (08:34→20:07)
[2022-01-31] MEDS: oxyBUTYnin *DITROPAN XL* 5 MG TABCR PO SCH (08:34)
[2022-01-31] MEDS: PANTOPRAZOLE 40MG VIAL IV SCH (08:35)
[2022-01-31] MEDS: POLYVINYL ALCOHOL OPHTH SOLN 15 ML(LIQUITEARS) OU SCH ×2 (08:39→20:07)
[2022-01-31] MEDS: NS 1,000 ML IV SCH ×3 (10:24→20:35)
[2022-01-31 12:00] VITALS: BP 145/67
[2022-01-31 16:00] VITALS: BP 139/70
[2022-01-31 20:00] VITALS: BP 143/95
[2022-01-31] MEDS: MONTELUKAST 10 MG TAB PO SCH (20:07)
[2022-01-31] MEDS: CETIRIZINE (ZyrTEC) 10 MG TAB PO SCH (20:07)
[2022-01-31] MEDS ORDERED: LIDOCAINE 5% (LIDODERM) PATCH TD ONE (20:35)
[2022-02-01] VITALS: BP 148/67
[2022-02-01] MEDS: PIPERACILLIN/TAZOBACTAM SOD 3.375 GM in D5W MINI-BAG PLUS 50 ML IV SCH ×4 (02:25→19:00)
[2022-02-01] MEDS: NS 1,000 ML IV SCH ×2 (02:28→02:29)
[2022-02-01 04:00] VITALS: BP 146/68
[2022-02-01 05:03] LABS: BASO # 0.1 10^3/uL (0.0-0.2); BASO % 0.4 % (0.0-1.0); EOS # 0.1 10^3/uL (0.0-0.5); EOS % 0.3 % (0.0-3.0); HEMATOCRIT 32.7 % (36.0-47.0); HEMOGLOBIN 9.9 g/dl (12.0-15.5); LYMPH % 10.6 % (24.0-44.0); MEAN CORPUSCULAR HEMOGLOBIN 28.9 pg (27.0-33.0); MEAN CORPUSCULAR HGB CONC 30.3 g/dl (32.0-36.5); MEAN CORPUSCULAR VOLUME 95.6 fl (80.0-96.0); MONO # 1.1 10^3/uL (0.0-0.8); MONO % 5.7 % (2.0-8.0); NEUTROPHILS # 15.3 10^3/uL (1.5-8.5); NEUTROPHILS % 82.6 % (36.0-66.0); PLATELET COUNT, AUTOMATED 311 10^3/uL (150-450); RED BLOOD COUNT 3.42 10^6/uL (4.00-5.40); WHITE BLOOD COUNT 18.5 10^3/uL (4.0-10.0)
[2022-02-01] MEDS: SODIUM CHLORIDE 0.9% INJ 10 ML SYR IV SCH ×2 (05:07→19:00)
[2022-02-01] MEDS: ACETAMINOPHEN 500 MG TAB PO PRN ×2 (05:14→22:48)
[2022-02-01] MEDS: HEPARIN SOD (PORCINE) 5000UNITS/ML 1ML VIAL/SYRINGE SC SCH ×3 (05:15→22:47)
[2022-02-01 05:22] LABS: MAGNESIUM LEVEL 2.2 MG/DL (1.8-2.4)
[2022-02-01 05:24] LABS: CALCIUM LEVEL 8.5 MG/DL (8.3-10.6); CREATININE FOR GFR 1.23 MG/DL (0.55-1.30); GLOMERULAR FILTRATION RATE 47.1 (>45)
[2022-02-01] MEDS ORDERED: D5W/0.45% SODIUM CHLORIDE 1,000 ML IV SCH (07:05)
[2022-02-01 07:28] VITALS: BP 139/83
[2022-02-01] MEDS: PANTOPRAZOLE 40MG VIAL IV SCH (07:36)
[2022-02-01] MEDS: TOPIRAMATE (TopAMAX) 100 MG TAB PO SCH ×2 (07:37→22:45)
[2022-02-01] MEDS: oxyBUTYnin *DITROPAN XL* 5 MG TABCR PO SCH (07:37)
[2022-02-01] MEDS: DULoxetine 30MG CAPSULE (CYMBALTA) PO SCH ×2 (07:37→22:45)
[2022-02-01] MEDS: POLYVINYL ALCOHOL OPHTH SOLN 15 ML(LIQUITEARS) OU SCH ×2 (07:38→22:47)
[2022-02-01] MEDS ORDERED: DOXYCYCLINE HYCLATE 100 MG in D5W MINI-BAG PLUS 100 ML IV SCH (09:55)
[2022-02-01] MEDS: DOXYCYCLINE HYCLATE 100MG TABLET PO SCH ×2 (10:16→22:45)
[2022-02-01 15:55] VITALS: BP 125/86
[2022-02-01 15:57] LABS: CALCIUM LEVEL 8.3 MG/DL (8.3-10.6); CREATININE FOR GFR 1.13 MG/DL (0.55-1.30); GLOMERULAR FILTRATION RATE 51.9 (>45); POTASSIUM SERUM 3.8 MMOL/L (3.5-5.1)
[2022-02-01 22:00] VITALS: BP 126/85
[2022-02-01] MEDS: MONTELUKAST 10 MG TAB PO SCH (22:45)
[2022-02-01] MEDS: CETIRIZINE (ZyrTEC) 10 MG TAB PO SCH (22:46)
[2022-02-01] MEDS: SODIUM CHLORIDE 0.9% INJ 10 ML SYR IV PRN (22:49)
[2022-02-02] MEDS: PIPERACILLIN/TAZOBACTAM SOD 3.375 GM in D5W MINI-BAG PLUS 50 ML IV SCH ×2 (02:43→09:02)
[2022-02-02] MEDS: SODIUM CHLORIDE 0.9% INJ 10 ML SYR IV PRN ×3 (02:44→09:04)
[2022-02-02] MEDS: HEPARIN SOD (PORCINE) 5000UNITS/ML 1ML VIAL/SYRINGE SC SCH (05:21)
[2022-02-02] MEDS: SODIUM CHLORIDE 0.9% INJ 10 ML SYR IV SCH (05:22)
[2022-02-02 05:41] LABS: BASO # 0.1 10^3/uL (0.0-0.2); BASO % 0.4 % (0.0-1.0); EOS # 0.2 10^3/uL (0.0-0.5); EOS % 1.6 % (0.0-3.0); HEMATOCRIT 32.4 % (36.0-47.0); LYMPH # 2.2 10^3/uL (1.5-5.0); LYMPH % 14.4 % (24.0-44.0); MEAN CORPUSCULAR HGB CONC 30.9 g/dl (32.0-36.5); MEAN CORPUSCULAR VOLUME 93.9 fl (80.0-96.0); MONO % 6.8 % (2.0-8.0); NEUTROPHILS # 11.6 10^3/uL (1.5-8.5); NEUTROPHILS % 76.3 % (36.0-66.0); PLATELET COUNT, AUTOMATED 307 10^3/uL (150-450); RED BLOOD COUNT 3.45 10^6/uL (4.00-5.40); WHITE BLOOD COUNT 15.2 10^3/uL (4.0-10.0)
[2022-02-02 06:00] VITALS: BP 146/47
[2022-02-02 06:24] LABS: MAGNESIUM LEVEL 1.6 MG/DL (1.8-2.4)
[2022-02-02 06:28] LABS: CALCIUM LEVEL 8.5 MG/DL (8.3-10.6); CREATININE FOR GFR 1.15 MG/DL (0.55-1.30); GLOMERULAR FILTRATION RATE 50.9 (>45); POTASSIUM SERUM 3.8 MMOL/L (3.5-5.1)
[2022-02-02] MEDS: MAG SULF 1GM/100ML (MAG RUN) 1 GM in IV 1 EA IV SCH ×2 (08:09→09:07)
[2022-02-02] MEDS: POLYVINYL ALCOHOL OPHTH SOLN 15 ML(LIQUITEARS) OU SCH (09:00)
[2022-02-02] MEDS: TOPIRAMATE (TopAMAX) 100 MG TAB PO SCH (09:03)
[2022-02-02] MEDS: oxyBUTYnin *DITROPAN XL* 5 MG TABCR PO SCH (09:03)
[2022-02-02] MEDS: DOXYCYCLINE HYCLATE 100MG TABLET PO SCH (09:03)
[2022-02-02] MEDS: PANTOPRAZOLE 40MG VIAL IV SCH (09:03)
[2022-02-02] MEDS: DULoxetine 30MG CAPSULE (CYMBALTA) PO SCH (09:03)
[2022-02-02 09:06] VITALS: BP 156/58
[2022-02-02] MEDS ORDERED: AMOX875T2 PO (10:33)
[2022-02-02] MEDS ORDERED: CVS1CAP5 PO (10:33)
[2022-02-02] MEDS ORDERED: DOXY-444 PO (10:33)
== END 2022-02-02 13:12 | disposition home or self-care (01) | DRG 389 ==
LOC: EDBD 21:11 → M ED 21:11 → M ED INP 01-29 03:36 → CANRESERV 01-29 16:43 → ENRESERV 01-29 16:43 → M PCU 01-29 21:41 → M MSPAV 02-01 15:46
PROVIDERS: ADMIT Family Medicine; ATTEND Internal Medicine
PROC: 02HV33Z Insertion of Infusion Device into Superior Vena Cava, Percutaneous Approach (ICD-10-PCS; principal; 2022-01-29 14:00)
DX: K56.600 Partial intestinal obstruction, unspecified as to cause (principal); F72 Severe intellectual disabilities; N17.9 Acute kidney failure, unspecified; Z68.41 Body mass index [BMI] 40.0-44.9, adult; E66.01 Morbid (severe) obesity due to excess calories; K64.9 Unspecified hemorrhoids; K56.7 Ileus, unspecified; I12.9 Hypertensive chronic kidney disease with stage 1 through stage 4 chronic kidney disease, or unspecified chronic kidney disease; N18.32 Chronic kidney disease, stage 3b; G47.33 Obstructive sleep apnea (adult) (pediatric); K21.9 Gastro-esophageal reflux disease without esophagitis; M19.90 Unspecified osteoarthritis, unspecified site; G40.909 Epilepsy, unspecified, not intractable, without status epilepticus; F32.A Depression, unspecified; H50.89 Other specified strabismus; Z90.49 Acquired absence of other specified parts of digestive tract; Z96.643 Presence of artificial hip joint, bilateral; Z96.653 Presence of artificial knee joint, bilateral; Z98.41 Cataract extraction status, right eye; Z98.42 Cataract extraction status, left eye; E87.5 Hyperkalemia; Z79.899 Other long term (current) drug therapy; Z20.822 Contact with and (suspected) exposure to COVID-19; D72.829 Elevated white blood cell count, unspecified

== ENCOUNTER → 2022-03-19 | Outpatient (CLI) | payer MEDICARE, MEDICAID ==
[~2022-03-19] MED LIST changes: +ACET-897 PO; +AMOX875T2 PO; +ANUS2.5C2 PR; +APPLTAB2 PO; +CALC-356 PO; +CELLOPD OU; +CETI-24 PO; +CVS100LI4 PO; +CVS1CAP5 PO; +DEBR6.5S4 AU; +DICL1GEL3 TOP; +DOXY-444 PO; +FAMO40TA3 PO; +MAALSUS19 PO; +MONT-5 PO; +NEOM28OI EXT; +REFROIN OU; +SALI0.6530; -SING10TA32 PO
== END ==
LOC: M WHC 09:23
PROVIDERS: ATTEND Advanced Practice Midwife
DX: Z12.31 Encounter for screening mammogram for malignant neoplasm of breast (principal); Z98.890 Other specified postprocedural states

== ENCOUNTER → 2022-07-09 | Outpatient (CLI) | payer MEDICARE, MEDICAID ==
[2022-07-09 11:28] LABS: BASO # 0.1 10^3/uL (0.0-0.2); BASO % 0.4 % (0.0-1.0); EOS # 0.1 10^3/uL (0.0-0.5); EOS % 0.9 % (0.0-3.0); HEMATOCRIT 37.4 % (36.0-47.0); HEMOGLOBIN 11.2 g/dl (12.0-15.5); LYMPH # 2.5 10^3/uL (1.5-5.0); LYMPH % 17.6 % (24.0-44.0); MEAN CORPUSCULAR HEMOGLOBIN 28.5 pg (27.0-33.0); MEAN CORPUSCULAR HGB CONC 29.9 g/dl (32.0-36.5); MEAN CORPUSCULAR VOLUME 95.2 fl (80.0-96.0); MONO # 0.8 10^3/uL (0.0-0.8); MONO % 5.4 % (2.0-8.0); NEUTROPHILS # 10.5 10^3/uL (1.5-8.5); NEUTROPHILS % 75.3 % (36.0-66.0); PLATELET COUNT, AUTOMATED 365 10^3/uL (150-450); RED BLOOD COUNT 3.93 10^6/uL (4.00-5.40); WHITE BLOOD COUNT 13.9 10^3/uL (4.0-10.0)
[2022-07-09 11:51] LABS: ALBUMIN 3.7 G/DL (3.2-5.2); BILIRUBIN,TOTAL 0.2 MG/DL (0.3-1.2); CALCIUM LEVEL 9.3 MG/DL (8.3-10.6); CREATININE FOR GFR 1.46 MG/DL (0.55-1.30); GLOMERULAR FILTRATION RATE 38.6 (>45); POTASSIUM SERUM 5.1 MMOL/L (3.5-5.1); TOTAL PROTEIN 7.6 G/DL (5.7-8.2)
== END ==
LOC: M LAB 10:21
PROVIDERS: ATTEND Family Medicine
DX: I10 Essential (primary) hypertension (principal)

== ENCOUNTER → 2023-01-16 | Outpatient (REF) | payer MEDICARE, MEDICAID ==
[~2023-01-16] MED LIST changes: +DICL100G10 TOP; -DICL1GEL3 TOP; -OXYB5TAB10 PO; +OXYB5TAB11 PO
[2023-01-16 18:37] LABS: APPEARANCE, URINE CLEAR (CLEAR); BACTERIA, URINE AUTO NEGATIVE (NEGATIVE); BILIRUBIN, URINE AUTO NEGATIVE (NEGATIVE); BLOOD, URINE BLOOD NEGATIVE (NEGATIVE); COLOR, URINE YELLOW (YELLOW); GLUCOSE, URINE (UA) AUTO NEGATIVE (NEGATIVE); KETONE, URINE AUTO NEGATIVE (NEGATIVE); LEUKOCYTE ESTERASE, URINE AUTO NEGATIVE (NEGATIVE); NITRITE, URINE AUTO NEGATIVE (NEGATIVE); PROTEIN, URINE AUTO NEGATIVE (NEGATIVE); RBC, URINE AUTO 0 /HPF (0-3); SPECIFIC GRAVITY URINE AUTO 1.011 (1.002-1.035); SQUAMOUS EPITHELIAL CELL UR AU 0 /HPF (0-6); UROBILINOGEN, URINE AUTO 0.2 mg/dL (0.0-2.0); WBC, URINE AUTO 1 /HPF (0-3)
== END ==
LOC: M LAB REF 16:38
PROVIDERS: ATTEND Physician Assistant Surgical
DX: N39.0 Urinary tract infection, site not specified (principal)

== ENCOUNTER → 2023-04-17 | Outpatient (CLI) | payer MEDICARE, MEDICAID ==
[~2023-04-17] MED LIST changes: -OXYB5TAB11 PO; +OXYB5TAB14 PO; -SALI0.6530; +SODI88SP
[2023-04-17 17:28] LABS: HEMATOCRIT 34.2 % (36.0-47.0); HEMOGLOBIN 10.4 g/dl (12.0-15.5); MEAN CORPUSCULAR HEMOGLOBIN 29.1 pg (27.0-33.0); MEAN CORPUSCULAR HGB CONC 30.4 g/dl (32.0-36.5); MEAN CORPUSCULAR VOLUME 95.8 fl (80.0-96.0); PLATELET COUNT, AUTOMATED 351 10^3/uL (150-450); RED BLOOD COUNT 3.57 10^6/uL (4.00-5.40)
[2023-04-17 17:48] LABS: ALBUMIN 3.2 G/DL (3.2-5.2); ALKALINE PHOSPHATASE 106 U/L (46-116); ALT/SGPT 14 U/L (7.0-40); AST/SGOT 14 U/L (<34); BILIRUBIN,TOTAL < 0.2 MG/DL (0.3-1.2); BLOOD UREA NITROGEN 36 MG/DL (9-23); CALCIUM LEVEL 8.5 MG/DL (8.3-10.6); CARBON DIOXIDE LEVEL 21 MMOL/L (20-31); CHLORIDE LEVEL 110 MMOL/L (98-107); CREATININE FOR GFR 1.36 MG/DL (0.55-1.30); GLOMERULAR FILTRATION RATE 41.8 (>45); GLUCOSE, FASTING 95 MG/DL (74-106); POTASSIUM SERUM 4.6 MMOL/L (3.5-5.1); SODIUM LEVEL 140 MMOL/L (136-145); TOTAL PROTEIN 6.9 G/DL (5.7-8.2)
[2023-04-20 06:42] LABS: WHITE BLOOD COUNT 17.9 10^3/uL (4.0-10.0)
== END ==
LOC: M LAB 15:58
PROVIDERS: ATTEND Family Medicine
DX: I10 Essential (primary) hypertension (principal); K21.9 Gastro-esophageal reflux disease without esophagitis

== ENCOUNTER → 2023-04-17 | Outpatient (CLI) | payer MEDICARE, MEDICAID ==
[2023-04-23 13:13] LABS: CHROMIUM PLASMA 2.3 ug/L (0.1-2.1)
== END ==
LOC: M LAB 16:02
PROVIDERS: ATTEND Physician Assistant
DX: T56.891D Toxic effect of other metals, accidental (unintentional), subsequent encounter (principal); T56.2X4A Toxic effect of chromium and its compounds, undetermined, initial encounter; Y93.9 Activity, unspecified; Y92.9 Unspecified place or not applicable; I10 Essential (primary) hypertension; K21.9 Gastro-esophageal reflux disease without esophagitis

== ENCOUNTER 2023-04-27 14:27 | Emergency (ER) | payer MEDICARE, MEDICAID ==
[2023-04-27 17:51] VITALS: BP 155/91; TEMP 98.8; O2SAT 99
== END 2023-04-27 18:42 | disposition home or self-care (01) ==
LOC: M ED 14:27
DX: S01.01XA Laceration without foreign body of scalp, initial encounter (principal); W01.10XA Fall on same level from slipping, tripping and stumbling with subsequent striking against unspecified object, initial encounter; Y92.9 Unspecified place or not applicable; Y93.9 Activity, unspecified; Y99.0 Civilian activity done for income or pay; E66.9 Obesity, unspecified; K21.9 Gastro-esophageal reflux disease without esophagitis; R56.9 Unspecified convulsions; J45.909 Unspecified asthma, uncomplicated; F32.A Depression, unspecified

== ENCOUNTER → 2023-06-04 | Outpatient (REF) | payer MEDICARE, MEDICAID ==
[~2023-06-04] MED LIST changes: +ALUM45SU PO; +AMOX500C PO; +AZEL1SPR3 NARES; +DICL20GE TP; -SENN1TAB41 PO; +SENN1TAB85 PO
== END ==
LOC: M WUC 19:49
PROVIDERS: ATTEND Student in an Organized Health Care Education/Training Program
DX: R30.0 Dysuria (principal)

== ENCOUNTER → 2023-07-01 | Outpatient (REF) | payer MEDICARE, MEDICAID ==
[~2023-07-01] MED LIST changes: -DESI13CR2 EXT; +DESI13CR2 TOP; +DICL20GE TOP; -DICL20GE TP; +DOXY-440 PO; -DOXY-444 PO; -NEOM28OI EXT; +NEOM28OI TOP; +NITR-67 PO
== END ==
LOC: M LAB REF 11:09
PROVIDERS: ATTEND Nurse Practitioner Family
DX: R30.0 Dysuria (principal)

== ENCOUNTER → 2023-07-02 | Outpatient (CLI) | payer MEDICARE, MEDICAID ==
[~2023-07-02] MED LIST changes: +DESI13CR2 EXT; -DESI13CR2 TOP; -DICL20GE TOP; +DICL20GE TP; +NEOM28OI EXT; -NEOM28OI TOP; -NITR-67 PO
[2023-07-02 12:48] LABS: FOLLICLE STIMULATING HORMONE 84.6 mIU/ML; LUTEINIZING HORMONE 36.1 mIU/ML; TOTAL 25(OH) VITAMIN D 31.9 NG/ML (20.0-100.0)
[2023-07-02 12:49] LABS: C REACTIVE PROTEIN QUANTITATIV 2.6 MG/DL (<1.0)
[2023-07-02 12:51] LABS: ALBUMIN 3.2 G/DL (3.2-5.2); BILIRUBIN,TOTAL 0.2 MG/DL (0.3-1.2); CALCIUM LEVEL 8.8 MG/DL (8.3-10.6); CREATININE FOR GFR 1.31 MG/DL (0.55-1.30); GLOMERULAR FILTRATION RATE 43.7 (>45); POTASSIUM SERUM 4.9 MMOL/L (3.5-5.1); TOTAL PROTEIN 7.1 G/DL (5.7-8.2)
[2023-07-02 12:59] LABS: BASO # 0.1 10^3/uL (0.0-0.2); BASO % 0.4 % (0.0-1.0); EOS # 0.2 10^3/uL (0.0-0.5); EOS % 1.4 % (0.0-3.0); HEMATOCRIT 35.1 % (36.0-47.0); HEMOGLOBIN 10.9 g/dl (12.0-15.5); LYMPH # 0.9 10^3/uL (1.5-5.0); LYMPH % 6.6 % (24.0-44.0); MEAN CORPUSCULAR HEMOGLOBIN 28.8 pg (27.0-33.0); MEAN CORPUSCULAR HGB CONC 31.1 g/dl (32.0-36.5); MEAN CORPUSCULAR VOLUME 92.9 fl (80.0-96.0); MONO # 1.2 10^3/uL (0.0-0.8); MONO % 8.3 % (2.0-8.0); NEUTROPHILS # 11.7 10^3/uL (1.5-8.5); NEUTROPHILS % 82.9 % (36.0-66.0); PLATELET COUNT, AUTOMATED 317 10^3/uL (150-450); RED BLOOD COUNT 3.78 10^6/uL (4.00-5.40); WHITE BLOOD COUNT 14.1 10^3/uL (4.0-10.0)
[2023-07-02 13:13] LABS: URIC ACID 6.2 MG/DL (3.1-7.8)
[2023-07-02 13:21] LABS: ERYTHROCYTE SEDIMENTATION RATE 96 mm/hr (0-30)
== END ==
LOC: M PLALAB 09:54 → M LAB 09:54
PROVIDERS: ATTEND Nurse Practitioner Family
DX: R23.4 Changes in skin texture (principal); Z79.899 Other long term (current) drug therapy

== ENCOUNTER 2023-07-06 08:47 | Inpatient (IN) | payer MEDICARE, MEDICAID ==
[~2023-07-06] VITALS: Ht 157.5 cm; Wt 109.0 kg
[2023-07-06] VITALS (33 sets, daily range): BP systolic 91–159; BP diastolic 44–76; TEMP 98.6–100.2; O2SAT 91–98
[~2023-07-06 08:47] MED LIST changes: -DESI13CR2 EXT; +DESI13CR2 TOP; +DICL20GE TOP; -DICL20GE TP; -NEOM28OI EXT; +NEOM28OI TOP
[2023-07-06] MEDS: IPRATROPIUM 0.5MG/ALBUTEROL 2.5MG INH SOL UD 3ML (DUONEB) NEB PRN (09:43)
[2023-07-06] MEDS: PROMETHAZINE 25MG/ML 1ML VIAL IM ONE (10:16)
[2023-07-06 10:27] LABS: VENOUS BASE EXCESS -7.3 (-2.0-2.0); VENOUS HCO3 19.1 MMOL/L (23.0-27.0); VENOUS O2 SATURATION 44.9 % (60.0-80.0); VENOUS PARTIAL PRESSURE CO2 41.7 mmHg (38.0-50.0); VENOUS PH 7.278 UNITS (7.330-7.430); VENOUS STANDARD HCO3 17.5 MMOL/L; VENOUS TOTAL CO2 20.3 MMOL/L (24.0-28.0)
[2023-07-06] MEDS: dexAMETHasone 20MG/5ML VIAL IV ONE (10:48)
[2023-07-06] MEDS: cefTRIAXone SOD 2 GM in D5W MINI-BAG PLUS 50 ML IV ONE (12:38)
[2023-07-06] MEDS: NS 3,130 ML in IV 1 EA IV ONE (12:39)
[2023-07-06] MEDS: NOREPINEPHRINE 4MG IN D5 250ML 4 MG in IV 1 EA IV SCH (12:58)
[2023-07-06] MEDS ORDERED: NOREPINEPHRINE 4MG IN D5 250ML 4 MG in IV 1 EA IV SCH (13:30)
[2023-07-06] MEDS: PANTOPRAZOLE 40MG VIAL IV SCH (13:46)
[2023-07-06] MEDS: PIPERACILLIN/TAZOBACTAM SOD 4.5 GM in D5W MINI-BAG PLUS 50 ML IV ONE (13:46)
[2023-07-06 13:47] LABS: BASO # 0.1 10^3/uL (0.0-0.2); BASO % 0.1 % (0.0-1.0); HEMATOCRIT 38.9 % (36.0-47.0); LYMPH # 0.9 10^3/uL (1.5-5.0); LYMPH % 2.5 % (24.0-44.0); MEAN CORPUSCULAR HEMOGLOBIN 28.6 pg (27.0-33.0); MEAN CORPUSCULAR HGB CONC 30.8 g/dl (32.0-36.5); MEAN CORPUSCULAR VOLUME 92.6 fl (80.0-96.0); MONO # 1.7 10^3/uL (0.0-0.8); MONO % 5.1 % (2.0-8.0); NEUTROPHILS # 30.9 10^3/uL (1.5-8.5); NEUTROPHILS % 91.5 % (36.0-66.0); PLATELET COUNT, AUTOMATED 445 10^3/uL (150-450)
[2023-07-06 13:57] LABS: WHITE BLOOD COUNT 33.8 10^3/uL (4.0-10.0)
[2023-07-06 14:18] LABS: CALCIUM LEVEL 8.8 MG/DL (8.3-10.6); CHOLESTEROL RISK RATIO 2.55 (<5); CK-MB VALUE MASS 9.2 NG/ML (<3.6); CREATININE FOR GFR 4.61 MG/DL (0.55-1.30); GLOMERULAR FILTRATION RATE 10.2 (>45); HDL CHOLESTEROL 42.3 MG/DL (>40); LDL CHOLESTEROL 50.1 MG/DL (<100); MB/CK RELATIVE INDEX 2.59 (< OR =4); NON-HDL-C 65.7 MG/DL; POTASSIUM SERUM 4.5 MMOL/L (3.5-5.1)
[2023-07-06 14:22] LABS: THYROID STIMULATING HORMONE 1.372 uIU/ML (0.55-4.78); THYROXINE (T4) 9.1 UG/DL (4.5-10.9)
[2023-07-06] MEDS: HYDROCORTISONE 100MG/2ML VIAL IV SCH (14:54)
[2023-07-06] MEDS: NS 1,000 ML IV ONE ×4 (15:38→18:35)
[2023-07-06 15:55] LABS: CK-MB VALUE MASS 10.6 NG/ML (<3.6); MB/CK RELATIVE INDEX 2.57 (< OR =4)
[2023-07-06] MEDS: VASOPRESSIN INJ 20 UNITS in NS 499 ML IV SCH (16:05)
[2023-07-06] MEDS: IPRATROPIUM 0.5MG/ALBUTEROL 2.5MG INH SOL UD 3ML (DUONEB) NEB SCH (16:07)
[2023-07-06] MEDS ORDERED: ONDANSETRON 4MG 2ML VIAL As Ordered ONE (17:07)
[2023-07-06] MEDS ORDERED: NITR-67 PO (17:29)
[2023-07-06] MEDS ORDERED: HOME MED LIST COMPLETE! XX SCH (17:30)
[2023-07-06] MEDS: ONDANSETRON 4MG 2ML VIAL IV PRN (17:33)
[2023-07-06] MEDS: NS 1,000 ML IV SCH (18:35)
[2023-07-06] MEDS: HEPARIN SOD (PORCINE) 5000UNITS/ML 1ML VIAL/SYRINGE SQ SCH (21:16)
[2023-07-06] MEDS ORDERED: VANCOMYCIN HCL 1,000 MG, VIAL MATE ADAPTER 1 EACH in D5W 250 ML IV SCH (21:45)
[2023-07-06] MEDS ORDERED: PIPERACILLIN/TAZOBACTAM SOD 2.25 GM in D5W MINI-BAG PLUS 50 ML IV SCH (22:00)
[2023-07-06 22:34] LABS: ALBUMIN 2.4 G/DL (3.2-5.2); ALKALINE PHOSPHATASE 88 U/L (46-116); ALT/SGPT 2995 U/L (7.0-40); AST/SGOT 5965 U/L (<34); BILIRUBIN,TOTAL 0.3 MG/DL (0.3-1.2); BLOOD UREA NITROGEN 68 MG/DL (9-23); CALCIUM LEVEL 6.5 MG/DL (8.3-10.6); CARBON DIOXIDE LEVEL 17 MMOL/L (20-31); CHLORIDE LEVEL 111 MMOL/L (98-107); CREATININE FOR GFR 4.25 MG/DL (0.55-1.30); GLOMERULAR FILTRATION RATE 11.2 (>45); GLUCOSE, FASTING 104 MG/DL (74-106); POTASSIUM SERUM 5.3 MMOL/L (3.5-5.1); SODIUM LEVEL 141 MMOL/L (136-145); TOTAL PROTEIN 5.6 G/DL (5.7-8.2)
[2023-07-06 23:27] LABS: HEPATITIS B SURFACE ANTIGEN NEGATIVE (NEGATIVE)
[2023-07-06 23:48] LABS: HEPATITIS B CORE ANTIBODY IGM NEGATIVE (NEGATIVE); HEPATITIS C VIRUS ABY INDEX < 0.02 INDEX (<0.8)
[2023-07-07] VITALS (46 sets, daily range): BP systolic 98–138; BP diastolic 52–74; TEMP 98.8–100; O2SAT 85–99
[2023-07-07 04:16] LABS: HEMATOCRIT 31.6 % (36.0-47.0); MEAN CORPUSCULAR HEMOGLOBIN 29.1 pg (27.0-33.0); MEAN CORPUSCULAR HGB CONC 31.6 g/dl (32.0-36.5); MEAN CORPUSCULAR VOLUME 91.9 fl (80.0-96.0); RED BLOOD COUNT 3.44 10^6/uL (4.00-5.40)
[2023-07-07 04:46] LABS: PLATELET COUNT, AUTOMATED 330 10^3/uL (150-450)
[2023-07-07 04:47] LABS: WHITE BLOOD COUNT 36.8 10^3/uL (4.0-10.0)
[2023-07-07 05:06] LABS: ALBUMIN 2.2 G/DL (3.2-5.2); BILIRUBIN,TOTAL 0.3 MG/DL (0.3-1.2); CALCIUM LEVEL 6.6 MG/DL (8.3-10.6); CREATININE FOR GFR 4.65 MG/DL (0.55-1.30); GLOMERULAR FILTRATION RATE 10.1 (>45); MAGNESIUM LEVEL 1.8 MG/DL (1.8-2.4); PHOSPHORUS LEVEL 4.6 MG/DL (2.4-5.1); POTASSIUM SERUM 5.2 MMOL/L (3.5-5.1); TOTAL PROTEIN 5.4 G/DL (5.7-8.2)
[2023-07-07 05:16] LABS: ANISOCYTOSIS 1+; LYMPHOCYTES 6 % (16-44); MONOCYTES 4 % (0-5); NEUTROPHILS 65 % (28-66); PLATELET ESTIMATE NORMAL (NORMAL)
[2023-07-07 05:17] LABS: HYPOCHROMASIA 1+
[2023-07-07] MEDS: PIPERACILLIN/TAZOBACTAM SOD 2.25 GM in D5W MINI-BAG PLUS 50 ML IV SCH (05:51)
[2023-07-07] MEDS: NS 1,000 ML IV ONE ×2 (08:31→09:07)
[2023-07-07] MEDS ORDERED: ENOXAPARIN 40MG/0.4ML SYRINGE (J1650 PER 10MG) SC SCH (09:00)
[2023-07-07 13:30] LABS: ALBUMIN 2.1 G/DL (3.2-5.2); BILIRUBIN,TOTAL 0.2 MG/DL (0.3-1.2); CALCIUM LEVEL 6.2 MG/DL (8.3-10.6); CREATININE FOR GFR 4.63 MG/DL (0.55-1.30); GLOMERULAR FILTRATION RATE 10.2 (>45); POTASSIUM SERUM 4.9 MMOL/L (3.5-5.1); TOTAL PROTEIN 5.6 G/DL (5.7-8.2)
[2023-07-07] MEDS: FUROSEMIDE 100MG/10ML VIAL IV ONE (14:04)
[2023-07-07] MEDS: FIDAXOMICIN 200 MG TAB (DIFICID) PO SCH (21:47)
[2023-07-08] VITALS (17 sets, daily range): BP systolic 102–166; BP diastolic 53–102; TEMP 98.3–99.6; O2SAT 93–99
[2023-07-08 04:28] LABS: BASO % 0.1 % (0.0-1.0); HEMATOCRIT 29.5 % (36.0-47.0); HEMOGLOBIN 9.1 g/dl (12.0-15.5); LYMPH # 1.6 10^3/uL (1.5-5.0); LYMPH % 5.6 % (24.0-44.0); MEAN CORPUSCULAR HGB CONC 30.8 g/dl (32.0-36.5); MEAN CORPUSCULAR VOLUME 93.9 fl (80.0-96.0); MONO % 3.6 % (2.0-8.0); NEUTROPHILS # 25.5 10^3/uL (1.5-8.5); NEUTROPHILS % 89.5 % (36.0-66.0); PLATELET COUNT, AUTOMATED 278 10^3/uL (150-450); RED BLOOD COUNT 3.14 10^6/uL (4.00-5.40); WHITE BLOOD COUNT 28.5 10^3/uL (4.0-10.0)
[2023-07-08 04:40] LABS: INR 1.49; PROTHROMBIN TIME 17.5 SECONDS (12.5-14.5)
[2023-07-08 05:42] LABS: ALBUMIN 1.9 G/DL (3.2-5.2); BILIRUBIN,TOTAL 0.2 MG/DL (0.3-1.2); CALCIUM LEVEL 6.6 MG/DL (8.3-10.6); CREATININE FOR GFR 4.83 MG/DL (0.55-1.30); GLOMERULAR FILTRATION RATE 9.7 (>45); MAGNESIUM LEVEL 1.8 MG/DL (1.8-2.4); PHOSPHORUS LEVEL 5.9 MG/DL (2.4-5.1); POTASSIUM SERUM 4.1 MMOL/L (3.5-5.1); TOTAL PROTEIN 5.1 G/DL (5.7-8.2)
[2023-07-08 08:16] LABS: CLOSTRIDIUM DIFFICILE PCR NEGATIVE (NEGATIVE)
[2023-07-08] MEDS: SODIUM BICARBONATE 150 MEQ in D5W 1,000 ML IV SCH (11:20)
[2023-07-08] MEDS: PANTOPRAZOLE 40MG VIAL IV SCH (21:16)
[2023-07-09] VITALS (19 sets, daily range): BP systolic 106–171; BP diastolic 59–98; TEMP 97.8–100; O2SAT 90–98
[2023-07-09 05:09] LABS: BASO % 0.1 % (0.0-1.0); HEMATOCRIT 27.6 % (36.0-47.0); LYMPH # 1.5 10^3/uL (1.5-5.0); MEAN CORPUSCULAR HGB CONC 32.6 g/dl (32.0-36.5); MONO % 3.3 % (2.0-8.0); NEUTROPHILS # 26.7 10^3/uL (1.5-8.5); NEUTROPHILS % 88.8 % (36.0-66.0); PLATELET COUNT, AUTOMATED 276 10^3/uL (150-450)
[2023-07-09 05:37] LABS: BILIRUBIN,TOTAL 0.3 MG/DL (0.3-1.2); CALCIUM LEVEL 6.8 MG/DL (8.3-10.6); CREATININE FOR GFR 4.76 MG/DL (0.55-1.30); GLOMERULAR FILTRATION RATE 9.8 (>45); MAGNESIUM LEVEL 1.7 MG/DL (1.8-2.4); PHOSPHORUS LEVEL 4.9 MG/DL (2.4-5.1); POTASSIUM SERUM 3.3 MMOL/L (3.5-5.1); TOTAL PROTEIN 5.4 G/DL (5.7-8.2)
[2023-07-09] MEDS: MAG SULF 1GM/100ML (MAG RUN) 1 GM in IV 1 EA IV ONE (06:41)
[2023-07-09] MEDS: KCL 20MEQ IN 100ML SWI (KRUN) 20 MEQ in IV 1 EA IV ONE ×2 (08:12→09:26)
[2023-07-09] MEDS: LOPERAMIDE 2 MG CAPLET PO PRN (08:39)
[2023-07-09] MEDS: guaiFENesin/CODEINE SYRUP 5 ML UDC PO PRN (09:25)
[2023-07-09] MEDS: hydrALAZINE 20MG/ML 1ML VIAL IV PRN (09:26)
[2023-07-09 15:23] LABS: PROCALCITONIN 36.93 ng/ml
[2023-07-09] MEDS: LACTOBACILLUS ACIDOPHILUS CAP (BACID) PO SCH (18:00)
[2023-07-09] MEDS: CETIRIZINE (ZyrTEC) 10 MG TAB PO SCH (20:42)
[2023-07-09] MEDS: DOXYCYCLINE HYCLATE 100MG TABLET PO SCH (20:42)
[2023-07-09] MEDS: TOPIRAMATE (TopAMAX) 100 MG TAB PO SCH (20:42)
[2023-07-10] VITALS (7 sets, daily range): BP systolic 130–172; BP diastolic 60–86; TEMP 97–98.8; O2SAT 90–96
[2023-07-10 07:03] LABS: BASO # 0.1 10^3/uL (0.0-0.2); BASO % 0.3 % (0.0-1.0); EOS # 0.1 10^3/uL (0.0-0.5); EOS % 0.5 % (0.0-3.0); HEMATOCRIT 27.8 % (36.0-47.0); HEMOGLOBIN 8.9 g/dl (12.0-15.5); LYMPH # 2.9 10^3/uL (1.5-5.0); LYMPH % 11.6 % (24.0-44.0); MEAN CORPUSCULAR HEMOGLOBIN 28.3 pg (27.0-33.0); MEAN CORPUSCULAR VOLUME 88.3 fl (80.0-96.0); MONO # 1.8 10^3/uL (0.0-0.8); NEUTROPHILS # 19.1 10^3/uL (1.5-8.5); NEUTROPHILS % 75.9 % (36.0-66.0); PLATELET COUNT, AUTOMATED 251 10^3/uL (150-450); RED BLOOD COUNT 3.15 10^6/uL (4.00-5.40); WHITE BLOOD COUNT 25.2 10^3/uL (4.0-10.0)
[2023-07-10 07:26] LABS: BILIRUBIN,DIRECT 0.3 MG/DL (<0.4); BILIRUBIN,TOTAL 0.5 MG/DL (0.3-1.2); CALCIUM LEVEL 7.6 MG/DL (8.3-10.6); CREATININE FOR GFR 4.24 MG/DL (0.55-1.30); GLOMERULAR FILTRATION RATE 11.3 (>45); MAGNESIUM LEVEL 1.8 MG/DL (1.8-2.4); POTASSIUM SERUM 3.3 MMOL/L (3.5-5.1); TOTAL PROTEIN 5.4 G/DL (5.7-8.2)
[2023-07-10] MEDS: PANTOPRAZOLE 40MG VIAL IV SCH (09:45)
[2023-07-10] MEDS: POTASSIUM CHLORIDE 10MEQ SR TABLET PO ONE (09:46)
[2023-07-10] MEDS: NEOSPORIN OINT 0.9 GM PKT TOP ONE (11:00)
[2023-07-11] VITALS (20 sets, daily range): BP systolic 106–148; BP diastolic 49–72; TEMP 97–98.7; O2SAT 85–98
[2023-07-11 06:52] LABS: BASO # 0.1 10^3/uL (0.0-0.2); BASO % 0.5 % (0.0-1.0); EOS # 0.2 10^3/uL (0.0-0.5); EOS % 0.5 % (0.0-3.0); HEMOGLOBIN 9.2 g/dl (12.0-15.5); LYMPH # 2.3 10^3/uL (1.5-5.0); LYMPH % 7.8 % (24.0-44.0); MEAN CORPUSCULAR HGB CONC 30.7 g/dl (32.0-36.5); MEAN CORPUSCULAR VOLUME 91.5 fl (80.0-96.0); MONO # 1.8 10^3/uL (0.0-0.8); MONO % 6.1 % (2.0-8.0); NEUTROPHILS # 23.8 10^3/uL (1.5-8.5); NEUTROPHILS % 80.5 % (36.0-66.0); PLATELET COUNT, AUTOMATED 259 10^3/uL (150-450); RED BLOOD COUNT 3.28 10^6/uL (4.00-5.40); WHITE BLOOD COUNT 29.5 10^3/uL (4.0-10.0)
[2023-07-11 07:25] LABS: ALBUMIN 2.3 G/DL (3.2-5.2); BILIRUBIN,TOTAL 0.3 MG/DL (0.3-1.2); CALCIUM LEVEL 8.2 MG/DL (8.3-10.6); CREATININE FOR GFR 3.81 MG/DL (0.55-1.30); GLOMERULAR FILTRATION RATE 12.7 (>45); MAGNESIUM LEVEL 1.9 MG/DL (1.8-2.4); POTASSIUM SERUM 3.9 MMOL/L (3.5-5.1); TOTAL PROTEIN 5.5 G/DL (5.7-8.2)
[2023-07-11] MEDS: IPRATROPIUM 0.5MG/ALBUTEROL 2.5MG INH SOL UD 3ML (DUONEB) NEB SCH (11:14)
[2023-07-11 13:30] LABS: ABG BASE EXCESS -6.5 (-2.0-2.0); ABG HCO3 20.9 MMOL/L (22.0-26.0); ABG O2 SATURATION 89.3 % (95.0-99.0); ABG PARTIAL PRESSURE CO2 50.3 mmHg (35.0-45.0); ABG PARTIAL PRESSURE O2 61.2 mmHg (75.0-100.0); ABG TOTAL CO2 22.5 MMOL/L (23.0-31.0)
[2023-07-11 13:34] LABS: ABG pH (ARTERIAL) 7.237 UNITS (7.350-7.450)
[2023-07-11] MEDS: FUROSEMIDE 100MG/10ML VIAL IV ONE (16:04)
[2023-07-11] MEDS ORDERED: LINEZOLID 600 MG in IV 1 EA IV SCH (18:00)
[2023-07-11] MEDS: LINEZOLID 600 MG in IV 1 EA IV SCH (20:54)
[2023-07-11 22:06] LABS: ABG BASE EXCESS -4.7 (-2.0-2.0); ABG HCO3 22.7 MMOL/L (22.0-26.0); ABG O2 SATURATION 97.2 % (95.0-99.0); ABG PARTIAL PRESSURE CO2 53.9 mmHg (35.0-45.0); ABG PARTIAL PRESSURE O2 98.3 mmHg (75.0-100.0); ABG STANDARD HCO3 20.5 MMOL/L. (22.0-26.0); ABG TOTAL CO2 24.4 MMOL/L (23.0-31.0)
[2023-07-11 22:07] LABS: ABG pH (ARTERIAL) 7.243 UNITS (7.350-7.450)
[2023-07-12] VITALS (18 sets, daily range): BP systolic 92–150; BP diastolic 48–72; TEMP 97–98.7; O2SAT 91–97
[2023-07-12 05:43] LABS: ABG HCO3 22.8 MMOL/L (22.0-26.0); ABG O2 SATURATION 97.3 % (95.0-99.0); ABG PARTIAL PRESSURE CO2 49.7 mmHg (35.0-45.0); ABG STANDARD HCO3 21.1 MMOL/L. (22.0-26.0); ABG TOTAL CO2 24.4 MMOL/L (23.0-31.0)
[2023-07-12 06:28] LABS: HEMATOCRIT 32.5 % (36.0-47.0); HEMOGLOBIN 10.2 g/dl (12.0-15.5); MEAN CORPUSCULAR HGB CONC 31.4 g/dl (32.0-36.5); MEAN CORPUSCULAR VOLUME 92.3 fl (80.0-96.0); PLATELET COUNT, AUTOMATED 198 10^3/uL (150-450); RED BLOOD COUNT 3.52 10^6/uL (4.00-5.40)
[2023-07-12 06:39] LABS: WHITE BLOOD COUNT 40.9 10^3/uL (4.0-10.0)
[2023-07-12 06:55] LABS: ANISOCYTOSIS 1+; ATYPICAL LYMPH 1 % (0-5); EOSINOPHILS 2 % (0-3); LYMPHOCYTES 10 % (16-44); MONOCYTES 8 % (0-5); MYELOCYTES 1 % (0-0); NEUTROPHILS 76 % (28-66); PLATELET ESTIMATE NORMAL (NORMAL); POIKILOCYTOSIS 1+
[2023-07-12 06:59] LABS: CALCIUM LEVEL 8.3 MG/DL (8.3-10.6); CREATININE FOR GFR 3.58 MG/DL (0.55-1.30); GLOMERULAR FILTRATION RATE 13.7 (>45); MAGNESIUM LEVEL 1.6 MG/DL (1.8-2.4); POTASSIUM SERUM 4.3 MMOL/L (3.5-5.1)
[2023-07-12] MEDS: MAG SULF 1GM/100ML (MAG RUN) 1 GM in IV 1 EA IV SCH (08:01)
[2023-07-12] MEDS: BENZONATATE 100MG CAPSULE PO PRN (08:02)
[2023-07-12 08:37] LABS: HEMATOCRIT 28.4 % (36.0-47.0); HEMOGLOBIN 9.1 g/dl (12.0-15.5); MEAN CORPUSCULAR HEMOGLOBIN 29.4 pg (27.0-33.0); MEAN CORPUSCULAR VOLUME 91.9 fl (80.0-96.0); PLATELET COUNT, AUTOMATED 253 10^3/uL (150-450); RED BLOOD COUNT 3.09 10^6/uL (4.00-5.40)
[2023-07-12 09:25] LABS: PROCALCITONIN 6.37 ng/ml
[2023-07-12] MEDS: FUROSEMIDE 40MG/4ML VIAL IV ONE (12:35)
[2023-07-13 03:12] VITALS: BP 130/80; TEMP 97.2; O2SAT 96
[2023-07-13 06:44] LABS: HEMATOCRIT 30.5 % (36.0-47.0); HEMOGLOBIN 9.4 g/dl (12.0-15.5); MEAN CORPUSCULAR HEMOGLOBIN 28.2 pg (27.0-33.0); MEAN CORPUSCULAR HGB CONC 30.8 g/dl (32.0-36.5); MEAN CORPUSCULAR VOLUME 91.6 fl (80.0-96.0); PLATELET COUNT, AUTOMATED 263 10^3/uL (150-450); RED BLOOD COUNT 3.33 10^6/uL (4.00-5.40); WHITE BLOOD COUNT 27.4 10^3/uL (4.0-10.0)
[2023-07-13 07:05] LABS: CALCIUM LEVEL 8.5 MG/DL (8.3-10.6); CREATININE FOR GFR 3.28 MG/DL (0.55-1.30); GLOMERULAR FILTRATION RATE 15.1 (>45); POTASSIUM SERUM 3.6 MMOL/L (3.5-5.1)
[2023-07-13 07:36] LABS: BASOPHILS 1 % (0-1); EOSINOPHILS 1 % (0-3); LYMPHOCYTES 16 % (16-44); METAMYELOCYTES 1 % (0-0); MONOCYTES 3 % (0-5); NEUTROPHILS 76 % (28-66)
[2023-07-13 07:39] VITALS: BP 110/68; TEMP 97.2; O2SAT 97
[2023-07-13 07:39] LABS: ANISOCYTOSIS 1+; POIKILOCYTOSIS 1+
[2023-07-13 07:40] LABS: PLATELET ESTIMATE NORMAL (NORMAL)
[2023-07-13 08:03] LABS: MAGNESIUM LEVEL 1.6 MG/DL (1.8-2.4)
[2023-07-13] MEDS: POTASSIUM CHLORIDE 10MEQ SR TABLET PO SCH (10:06)
[2023-07-13] MEDS: FUROSEMIDE 40MG/4ML VIAL IV ONE (10:07)
[2023-07-13] MEDS: MAG SULF 1GM/100ML (MAG RUN) 1 GM in IV 1 EA IV SCH (11:37)
[2023-07-13] MEDS: MAGNESIUM OXIDE 400MG TAB (MAG-OX) PO SCH (11:37)
[2023-07-13 12:50] VITALS: BP 132/82; TEMP 97.9; O2SAT 99
[2023-07-13 15:59] VITALS: BP 110/58; TEMP 98.1; O2SAT 97
[2023-07-13 17:10] LABS: BODY FLUID CULTURE Not indicated. (.); LEGIONELLA ANTIGEN URINE Negative (Negative); ORGANISM ID Not indicated. (.); SPECIMEN SOURCE Urine (.); URINE STREP PNEUMONIAE ANTIGEN Negative (Negative)
[2023-07-13 19:09] VITALS: BP 144/67; TEMP 97.9; O2SAT 96
[2023-07-14 03:44] VITALS: BP 145/68; TEMP 97.3; O2SAT 95
[2023-07-14 06:07] LABS: HEMATOCRIT 29.5 % (36.0-47.0); HEMOGLOBIN 9.1 g/dl (12.0-15.5); MEAN CORPUSCULAR HEMOGLOBIN 28.1 pg (27.0-33.0); MEAN CORPUSCULAR HGB CONC 30.8 g/dl (32.0-36.5); PLATELET COUNT, AUTOMATED 179 10^3/uL (150-450); RED BLOOD COUNT 3.24 10^6/uL (4.00-5.40)
[2023-07-14 06:31] LABS: CALCIUM LEVEL 8.7 MG/DL (8.3-10.6); CREATININE FOR GFR 2.92 MG/DL (0.55-1.30); GLOMERULAR FILTRATION RATE 17.3 (>45); MAGNESIUM LEVEL 1.9 MG/DL (1.8-2.4); POTASSIUM SERUM 4.3 MMOL/L (3.5-5.1)
[2023-07-14 08:09] VITALS: BP 134/62; TEMP 97.1; O2SAT 93
[2023-07-14] MEDS: FUROSEMIDE 40 MG TAB PO SCH (10:48)
[2023-07-14 12:00] VITALS: BP 142/67; TEMP 97.7; O2SAT 94
[2023-07-14] MEDS ORDERED: IPRATROPIUM 0.5MG/ALBUTEROL 2.5MG INH SOL UD 3ML (DUONEB) NEB PRN (13:00)
[2023-07-14 13:29] LABS: CLOSTRIDIUM DIFFICILE PCR NEGATIVE (NEGATIVE)
[2023-07-14 14:01] VITALS: BP 160/90; TEMP 97.9; O2SAT 97
[2023-07-14] MEDS: PINK BISMUTH SUSP 524MG/30ML ORAL SYRINGE PO SCH (21:15)
[2023-07-14 22:00] VITALS: BP 107/70; TEMP 98.4; O2SAT 96
[2023-07-15 06:00] VITALS: BP 130/67; TEMP 98.1; O2SAT 90
[2023-07-15 06:50] LABS: HEMATOCRIT 27.8 % (36.0-47.0); HEMOGLOBIN 8.6 g/dl (12.0-15.5); MEAN CORPUSCULAR HEMOGLOBIN 28.4 pg (27.0-33.0); MEAN CORPUSCULAR HGB CONC 30.9 g/dl (32.0-36.5); MEAN CORPUSCULAR VOLUME 91.7 fl (80.0-96.0); PLATELET COUNT, AUTOMATED 261 10^3/uL (150-450); RED BLOOD COUNT 3.03 10^6/uL (4.00-5.40); WHITE BLOOD COUNT 23.1 10^3/uL (4.0-10.0)
[2023-07-15 07:17] LABS: CALCIUM LEVEL 8.4 MG/DL (8.3-10.6); CREATININE FOR GFR 2.72 MG/DL (0.55-1.30); GLOMERULAR FILTRATION RATE 18.8 (>45); MAGNESIUM LEVEL 1.7 MG/DL (1.8-2.4); POTASSIUM SERUM 4.2 MMOL/L (3.5-5.1)
[2023-07-15] MEDS: MAG SULF 1GM/100ML (MAG RUN) 1 GM in IV 1 EA IV ONE (09:11)
[2023-07-15] MEDS ORDERED: POTA-151 PO (11:02)
[2023-07-15] MEDS ORDERED: RISATAB3 PO (11:02)
[2023-07-15] MEDS: DARBEPOETIN 100MCG/0.5ML *NON-DIALYSIS* SYRINGE SC SCH (11:34)
[2023-07-15] MEDS ORDERED: FURO40TA2 PO (12:04)
== END 2023-07-15 15:28 | disposition home or self-care (01) | DRG 871 ==
LOC: EDBD 08:47 → M ED 08:47 → M ED INP 13:29 → M ICU 14:33 → M PCU 07-09 13:00 → M MSPAV 07-14 14:00
PROVIDERS: ADMIT Internal Medicine Critical Care Medicine; ATTEND Internal Medicine Nephrology
PROC: 02HV33Z Insertion of Infusion Device into Superior Vena Cava, Percutaneous Approach (ICD-10-PCS; principal; 2023-07-06)
DX: A41.9 Sepsis, unspecified organism (principal); J12.2 Parainfluenza virus pneumonia; R65.21 Severe sepsis with septic shock; G93.41 Metabolic encephalopathy; N17.0 Acute kidney failure with tubular necrosis; K72.00 Acute and subacute hepatic failure without coma; J96.01 Acute respiratory failure with hypoxia; F72 Severe intellectual disabilities; Z68.42 Body mass index [BMI] 45.0-49.9, adult; K56.609 Unspecified intestinal obstruction, unspecified as to partial versus complete obstruction; N39.0 Urinary tract infection, site not specified; E87.0 Hyperosmolality and hypernatremia; G40.909 Epilepsy, unspecified, not intractable, without status epilepticus; K21.9 Gastro-esophageal reflux disease without esophagitis; N18.32 Chronic kidney disease, stage 3b; I12.9 Hypertensive chronic kidney disease with stage 1 through stage 4 chronic kidney disease, or unspecified chronic kidney disease; R19.7 Diarrhea, unspecified; G47.33 Obstructive sleep apnea (adult) (pediatric); E83.42 Hypomagnesemia; E87.6 Hypokalemia; D63.1 Anemia in chronic kidney disease; Z79.899 Other long term (current) drug therapy; Z91.119 Patient's noncompliance with dietary regimen due to unspecified reason; M19.90 Unspecified osteoarthritis, unspecified site; F32.A Depression, unspecified; Z96.643 Presence of artificial hip joint, bilateral; Z96.653 Presence of artificial knee joint, bilateral; Z98.41 Cataract extraction status, right eye; Z98.42 Cataract extraction status, left eye

== ENCOUNTER → 2023-10-29 | Outpatient (CLI) | payer MEDICARE, MEDICAID ==
[~2023-10-29] MED LIST changes: +AMOX500C; +DULO1CAP6; +FAMO40TA3; +FURO40TA2; +FURO40TA2 PO; +NITR-67 PO; +PETR3.5O OU; +POTA-151 PO; -REFROIN OU; +REFRSOL OP; +RISATAB3 PO
== END ==
LOC: M WHC 10:28
PROVIDERS: ATTEND Advanced Practice Midwife
DX: Z12.31 Encounter for screening mammogram for malignant neoplasm of breast (principal)

== ENCOUNTER → 2024-01-27 | Outpatient (REF) | payer MEDICARE, MEDICAID ==
[2024-01-27 13:19] LABS: APPEARANCE, URINE CLEAR (CLEAR); BACTERIA, URINE AUTO NEGATIVE (NEGATIVE); BILIRUBIN, URINE AUTO NEGATIVE (NEGATIVE); BLOOD, URINE BLOOD NEGATIVE (NEGATIVE); COLOR, URINE STRAW (YELLOW); GLUCOSE, URINE (UA) AUTO NEGATIVE (NEGATIVE); KETONE, URINE AUTO NEGATIVE (NEGATIVE); LEUKOCYTE ESTERASE, URINE AUTO NEGATIVE (NEGATIVE); MUCUS, URINE SMALL (NEGATIVE); NITRITE, URINE AUTO NEGATIVE (NEGATIVE); PROTEIN, URINE AUTO NEGATIVE (NEGATIVE); RBC, URINE AUTO 0 /HPF (0-3); SPECIFIC GRAVITY URINE AUTO 1.011 (1.002-1.035); SQUAMOUS EPITHELIAL CELL UR AU 0 /HPF (0-6); UROBILINOGEN, URINE AUTO 0.2 mg/dL (0.0-2.0); WBC, URINE AUTO 1 /HPF (0-3)
[2024-01-27 14:05] LABS: TOTAL PROTEIN,RANDOM URINE 13.2 MG/DL (0.0-14.0)
[2024-01-27 14:10] LABS: CREATININE,RANDOM URINE 34.4 MG/DL
== END ==
LOC: M SFHCRHEU 10:18
PROVIDERS: ATTEND Internal Medicine
DX: R76.8 Other specified abnormal immunological findings in serum (principal)

== ENCOUNTER → 2024-02-08 | Outpatient (CLI) | payer MEDICARE, MEDICAID ==
[2024-02-08 11:47] LABS: BASO # 0.1 10^3/uL (0.0-0.2); BASO % 0.4 % (0.0-1.0); EOS # 0.2 10^3/uL (0.0-0.5); EOS % 0.9 % (0.0-3.0); HEMATOCRIT 35.8 % (36.0-47.0); HEMOGLOBIN 10.9 g/dl (12.0-15.5); LYMPH # 2.7 10^3/uL (1.5-5.0); LYMPH % 15.7 % (24.0-44.0); MEAN CORPUSCULAR HEMOGLOBIN 28.9 pg (27.0-33.0); MEAN CORPUSCULAR HGB CONC 30.4 g/dl (32.0-36.5); MONO # 1.1 10^3/uL (0.0-0.8); MONO % 6.2 % (2.0-8.0); NEUTROPHILS # 12.9 10^3/uL (1.5-8.5); NEUTROPHILS % 75.8 % (36.0-66.0); PLATELET COUNT, AUTOMATED 363 10^3/uL (150-450); RED BLOOD COUNT 3.77 10^6/uL (4.00-5.40)
[2024-02-08 11:54] LABS: ERYTHROCYTE SEDIMENTATION RATE 109 mm/hr (0-30)
[2024-02-08 12:15] LABS: C REACTIVE PROTEIN QUANTITATIV 1.36 MG/DL (<1.0); COMPLEMENT C3 187.5 MG/DL (90.0-170.0); COMPLEMENT C4 38.2 MG/DL (12-36); MAGNESIUM LEVEL 2.2 MG/DL (1.8-2.4); PERCENT SATURATION 16.6 % (13.2-45.0); PHOSPHORUS LEVEL 3.7 MG/DL (2.4-5.1)
[2024-02-08 12:17] LABS: FERRITIN 84.4 NG/ML (7.3-270.7); TOTAL 25(OH) VITAMIN D 36.1 NG/ML (20.0-100.0)
[2024-02-11 10:37] LABS: Hexagonal Phase Phospholipid Negative (Negative); PTT-LA 43 sec (<=40); dRVVT 44 sec (<=45)
[2024-02-12 17:38] LABS: COMPLEMENT TOTAL (CH50) > 60 U/mL (31-60)
== END ==
LOC: M LAB 10:31
PROVIDERS: ATTEND Internal Medicine
DX: R76.8 Other specified abnormal immunological findings in serum (principal); M25.50 Pain in unspecified joint; M79.10 Myalgia, unspecified site; Z79.899 Other long term (current) drug therapy

== ENCOUNTER → 2024-02-10 | Outpatient (CLI) | payer MEDICARE, MEDICAID | LOC: M WUC 08:40 | PROVIDERS: ATTEND Internal Medicine | DX: M19.071 Primary osteoarthritis, right ankle and foot (principal); M79.671 Pain in right foot; M79.672 Pain in left foot ==

== ENCOUNTER 2024-04-04 10:52 | Emergency (ER) | payer MEDICARE, MEDICAID ==
[~2024-04-04] VITALS: Ht 144.8 cm; Wt 106.2 kg
[2024-04-04 14:47] LABS: BASO # 0.1 10^3/uL (0.0-0.2); BASO % 0.4 % (0.0-1.0); EOS # 0.2 10^3/uL (0.0-0.5); HEMATOCRIT 37.7 % (36.0-47.0); HEMOGLOBIN 11.4 g/dl (12.0-15.5); LYMPH # 2.5 10^3/uL (1.5-5.0); LYMPH % 16.2 % (24.0-44.0); MEAN CORPUSCULAR HEMOGLOBIN 28.6 pg (27.0-33.0); MEAN CORPUSCULAR HGB CONC 30.2 g/dl (32.0-36.5); MEAN CORPUSCULAR VOLUME 94.5 fl (80.0-96.0); MONO # 0.8 10^3/uL (0.0-0.8); MONO % 5.3 % (2.0-8.0); NEUTROPHILS % 76.8 % (36.0-66.0); PLATELET COUNT, AUTOMATED 350 10^3/uL (150-450); RED BLOOD COUNT 3.99 10^6/uL (4.00-5.40); WHITE BLOOD COUNT 15.7 10^3/uL (4.0-10.0)
[2024-04-04 15:14] LABS: LIPASE 99 U/L (12-53)
[2024-04-04 15:16] LABS: ALBUMIN 3.5 G/DL (3.2-5.2); ALKALINE PHOSPHATASE 136 U/L (35-104); ALT/SGPT 14 U/L (7.0-40); AST/SGOT 12 U/L (<34); BILIRUBIN,DIRECT < 0.1 MG/DL (<0.4); BILIRUBIN,TOTAL 0.2 MG/DL (0.3-1.2); BLOOD UREA NITROGEN 37 MG/DL (9-23); CARBON DIOXIDE LEVEL 28 MMOL/L (20-31); CHLORIDE LEVEL 107 MMOL/L (98-107); CREATININE FOR GFR 1.37 MG/DL (0.55-1.30); GLOMERULAR FILTRATION RATE 41.3 (>45); GLUCOSE, FASTING 87 MG/DL (74-106); POTASSIUM SERUM 4.4 MMOL/L (3.5-5.1); SODIUM LEVEL 145 MMOL/L (136-145); TOTAL PROTEIN 7.9 G/DL (5.7-8.2)
[2024-04-04 15:40] LABS: KETONE, URINE AUTO RFX NEGATIVE (NEGATIVE); LEUKOCYTE ESTERASE UR AUTO RFX NEGATIVE (NEGATIVE); NITRITE, URINE AUTO RFX NEGATIVE (NEGATIVE); RBC, URINE AUTO RFX 0 /HPF (0-3); SQUAM EPITHELIAL CELL UR AURFX 0 /HPF (0-6); WBC, URINE AUTO RFX 1 /HPF (0-3)
[2024-04-04] MEDS ORDERED: ISOVUE-370 76% 100ML VIAL As Ordered ONE (15:51)
[2024-04-04 16:46] VITALS: BP 187/79; TEMP 96.7; O2SAT 94
== END 2024-04-04 17:44 | disposition home or self-care (01) ==
LOC: M ED 10:52
DX: K52.9 Noninfective gastroenteritis and colitis, unspecified (principal); D72.829 Elevated white blood cell count, unspecified; N18.30 Chronic kidney disease, stage 3 unspecified; Z90.49 Acquired absence of other specified parts of digestive tract; Z96.643 Presence of artificial hip joint, bilateral
CPT/HCPCS: 36415; 74018; 74177; 80048; 80076; 81001; 83605; 83690; 85025; 99284; Q9967

== ENCOUNTER → 2024-05-09 | Outpatient (REF) | payer MEDICARE, MEDICAID ==
[~2024-05-09] MED LIST changes: +ALUM320S3 PO; +REFR0.5D8 OP
[2024-05-09 13:01] LABS: APPEARANCE, URINE CLEAR (CLEAR); BACTERIA, URINE AUTO NEGATIVE (NEGATIVE); BILIRUBIN, URINE AUTO NEGATIVE (NEGATIVE); BLOOD, URINE BLOOD NEGATIVE (NEGATIVE); COLOR, URINE YELLOW (YELLOW); GLUCOSE, URINE (UA) AUTO NEGATIVE (NEGATIVE); KETONE, URINE AUTO NEGATIVE (NEGATIVE); LEUKOCYTE ESTERASE, URINE AUTO NEGATIVE (NEGATIVE); NITRITE, URINE AUTO NEGATIVE (NEGATIVE); PROTEIN, URINE AUTO NEGATIVE (NEGATIVE); RBC, URINE AUTO 0 /HPF (0-3); SPECIFIC GRAVITY URINE AUTO 1.015 (1.002-1.035); SQUAMOUS EPITHELIAL CELL UR AU 0 /HPF (0-6); UROBILINOGEN, URINE AUTO 0.2 mg/dL (0.0-2.0); WBC, URINE AUTO 2 /HPF (0-3)
== END ==
LOC: M LAB REF 12:10
PROVIDERS: ATTEND Family Medicine
DX: I10 Essential (primary) hypertension (principal); R14.0 Abdominal distension (gaseous)

== ENCOUNTER → 2024-05-26 | Outpatient (REF) | payer MEDICARE, MEDICAID | LOC: M LAB REF 11:52 | PROVIDERS: ATTEND Nurse Practitioner Family | DX: R30.0 Dysuria (principal) ==

== ENCOUNTER → 2024-06-16 | Outpatient (CLI) | payer MEDICARE, MEDICAID | LOC: M RAD 13:10 | PROVIDERS: ATTEND Internal Medicine | DX: R29.91 Unspecified symptoms and signs involving the musculoskeletal system (principal) ==

== ENCOUNTER → 2024-07-04 | Outpatient (REF) | payer MEDICARE, MEDICAID | LOC: M LAB REF 12:08 | PROVIDERS: ATTEND Student in an Organized Health Care Education/Training Program | DX: R30.0 Dysuria (principal) ==

== ENCOUNTER 2024-07-19 13:50 | Emergency (ER) | payer MEDICARE, MEDICAID ==
[~2024-07-19] VITALS: Ht 170.2 cm; Wt 106.0 kg
[~2024-07-19 13:50] MED LIST changes: +AMMO12CR4 EX; -AMMO12CR7 EX
[2024-07-19 17:35] LABS: BASO # 0.1 10^3/uL (0.0-0.2); BASO % 0.3 % (0.0-1.0); EOS # 0.1 10^3/uL (0.0-0.5); EOS % 0.8 % (0.0-3.0); HEMATOCRIT 35.3 % (36.0-47.0); HEMOGLOBIN 10.4 g/dl (12.0-15.5); LYMPH % 12.8 % (24.0-44.0); MEAN CORPUSCULAR HGB CONC 29.5 g/dl (32.0-36.5); MEAN CORPUSCULAR VOLUME 95.1 fl (80.0-96.0); MONO # 1.2 10^3/uL (0.0-0.8); MONO % 7.9 % (2.0-8.0); NEUTROPHILS % 77.7 % (36.0-66.0); PLATELET COUNT, AUTOMATED 331 10^3/uL (150-450); RED BLOOD COUNT 3.71 10^6/uL (4.00-5.40); WHITE BLOOD COUNT 15.5 10^3/uL (4.0-10.0)
[2024-07-19 17:59] LABS: CK-MB VALUE MASS 2.5 NG/ML (<3.6)
[2024-07-19 18:01] LABS: ALBUMIN 3.3 G/DL (3.2-5.2); ALKALINE PHOSPHATASE 117 U/L (35-104); ALT/SGPT 15 U/L (7.0-40); AST/SGOT 15 U/L (<34); BILIRUBIN,DIRECT < 0.1 MG/DL (<0.4); BILIRUBIN,TOTAL < 0.2 MG/DL (0.3-1.2); BLOOD UREA NITROGEN 41 MG/DL (9-23); CALCIUM LEVEL 8.6 MG/DL (8.3-10.6); CARBON DIOXIDE LEVEL 25 MMOL/L (20-31); CHLORIDE LEVEL 109 MMOL/L (98-107); CREATININE FOR GFR 1.34 MG/DL (0.55-1.30); GLOMERULAR FILTRATION RATE 44.3 (>45); GLUCOSE, FASTING 111 MG/DL (74-106); POTASSIUM SERUM 4.3 MMOL/L (3.5-5.1); SODIUM LEVEL 145 MMOL/L (136-145); TOTAL PROTEIN 7.1 G/DL (5.7-8.2)
[2024-07-19 18:03] LABS: THYROID STIMULATING HORMONE 2.464 uIU/ML (0.55-4.78)
[2024-07-19 18:05] LABS: CPK CREATINE PHOSPHOKINASE 153 U/L (34-145); MB/CK RELATIVE INDEX 1.63 (< OR =4)
[2024-07-19 18:07] VITALS: TEMP 96.8
[2024-07-19 18:29] VITALS: BP 130/70; O2SAT 99
== END 2024-07-19 18:40 | disposition home or self-care (01) ==
LOC: EDBD 13:50 → M ED 13:50
DX: T43.591A Poisoning by other antipsychotics and neuroleptics, accidental (unintentional), initial encounter (principal); F79 Unspecified intellectual disabilities; E66.9 Obesity, unspecified; Z79.899 Other long term (current) drug therapy

== ENCOUNTER → 2024-11-02 | Outpatient (REF) | payer MEDICARE, MEDICAID ==
[~2024-11-02] MED LIST changes: +DICL100G10; +MELO7.5T35
[2024-11-02 13:25] LABS: APPEARANCE, URINE CLEAR (CLEAR); BACTERIA, URINE AUTO NEGATIVE (NEGATIVE); BILIRUBIN, URINE AUTO NEGATIVE (NEGATIVE); BLOOD, URINE BLOOD NEGATIVE (NEGATIVE); GLUCOSE, URINE (UA) AUTO NEGATIVE (NEGATIVE); KETONE, URINE AUTO NEGATIVE (NEGATIVE); LEUKOCYTE ESTERASE, URINE AUTO NEGATIVE (NEGATIVE); NITRITE, URINE AUTO NEGATIVE (NEGATIVE); PROTEIN, URINE AUTO NEGATIVE (NEGATIVE); RBC, URINE AUTO 0 /HPF (0-3); SPECIFIC GRAVITY URINE AUTO 1.011 (1.002-1.035); SQUAMOUS EPITHELIAL CELL UR AU 0 /HPF (0-6); UROBILINOGEN, URINE AUTO 0.2 mg/dL (0.0-2.0); WBC, URINE AUTO 0 /HPF (0-3)
== END ==
LOC: M SMT 12:07
PROVIDERS: ATTEND Physician Assistant
DX: R39.9 Unspecified symptoms and signs involving the genitourinary system (principal)

== ENCOUNTER → 2024-11-03 | Outpatient (CLI) | payer MEDICARE, MEDICAID | LOC: M WHC 09:23 | PROVIDERS: ATTEND Advanced Practice Midwife | DX: Z12.31 Encounter for screening mammogram for malignant neoplasm of breast (principal); Z13.820 Encounter for screening for osteoporosis; R92.313 Mammographic fatty tissue density, bilateral breasts ==

== ENCOUNTER → 2025-02-13 | Outpatient (REF) | payer MEDICARE, MEDICAID ==
[~2025-02-13] MED LIST changes: -CVS100LI4 PO; +GUAI-147 PO; -SODI88SP; +SODI88SP7
== END ==
LOC: M LAB REF 12:01
PROVIDERS: ATTEND Student in an Organized Health Care Education/Training Program
DX: R19.7 Diarrhea, unspecified (principal); A04.72 Enterocolitis due to Clostridium difficile, not specified as recurrent